=== PATIENT | male | born 1935 ===

== ENCOUNTER 2016-09-08 19:37 | Inpatient (IN) | payer MEDICARE, OTHER ==
--- NOTE | 2016-09-08 20:17 | ED PDOC ---
HPI: Head Injury Time Seen by Provider: 09/08/16 19:45 Chief Complaint (Nursing): Abnormal Skin Integrity Chief Complaint (Provider): Head injury History Per: Patient, Family (daughters and son) History/Exam Limitations: no limitations Injury Occurred (Timing): Just Before Arrival Onset/Duration Of Symptoms: Mins (just before arrival) Patient States: Other (tripped and fell, head hit the floor) Severity: Moderate Loss Of Consciousness: No (patient's son states patient was disoriented after fall. No LOC) Additional Complaint(s): 81 year old male in kidney failure currently on dialysis (3x days a week, patient went to day) is brought into the ED by EMS for a head injury that occurred just prior to arrival. Patient's daughter reports that he had just gotten home after a dialysis appointment, took a shower, and afterwards tripped and fell with the left side of his head hitting against the floor. His son reports seeing the fall and states that his father had no loss of consciousness but was disoriented after the fall. Patient reports that the left side of his forehead is sore. Patient denies feeling weak or having any other medical complaints. Of note: Patient was administered heprin during dialysis today. Patient is currently taking: * prilosec * renvela * cymbalta * cavedrol * flomax * cyproheptadine PRN as needed PMD: Jason Brand MD Vault Attendant: Hosea Rodriguez MD Past Medical History Reviewed: Historical Data, Nursing Documentation, Vital Signs - Medical History PMH: Arthritis, Back Problems (lower back herniated disc ), HTN, End Stage Renal Disease (HD on MWF), Chronic Kidney Disease, TIA Denies: Fractures - Surgical History Other surgeries: left arm AV shunt - Family History Family History: States: Unknown Family Hx - Living Arrangements Living Arrangements: Other (with homemaker) - Social History Alcohol: None Drugs: Denies - Immunization History Hx Tetanus Toxoid Vaccination: Yes (02/2016) - Home Medications Home Medications: Ambulatory Orders Medication Instructions Recorded Omeprazole [Prilosec] 20 mg PO DAILY #0 ecc 04/07/15 Sevelamer Carbonate [Renvela] 800 mg PO BID 04/14/16 Carvedilol [Coreg] 3.125 mg PO SUTUTHSA@0900,2100 30 05/30/16 Days DULoxetine [Cymbalta] 30 mg PO QAM 30 Days 05/30/16 Tamsulosin [Flomax] 0.4 mg PO QPM #30 cap 05/30/16 B Complex W-C No.20/Folic Acid 1 mg PO DAILY 09/08/16 [[place] Caps Softgel] Cyproheptadine [Periactin] 4 mg pe PO ONCE PRN 09/08/16 - Allergies Allergies/Adverse Reactions: Allergies Allergy/AdvReac Type Severity Reaction Status Date / Time cortisone Allergy Mild hicups Verified 09/08/16 19:45 Review of Systems ROS Statement: Except As Marked, All Systems Reviewed And Found Negative Neurological: Positive for: Headache. Negative for: Weakness Physical Exam - Reviewed Nursing Documentation Reviewed: Yes Vital Signs Reviewed: Yes - Physical Exam Appears: Positive for: Well, Non-toxic, No Acute Distress Head Exam: Positive for: NORMOCEPHALIC. Negative for: ATRAUMATIC (4 centimeter laceration above left eyebrow) Skin: Positive for: Normal Color, Warm, Dry Eye Exam: Positive for: Normal appearance, EOMI, PERRL Neck: Positive for: Normal, Painless ROM Cardiovascular/Chest: Positive for: Regular Rate, Rhythm Respiratory: Positive for: Normal Breath Sounds. Negative for: Respiratory Distress Gastrointestinal/Abdominal: Positive for: Normal Exam, Soft. Negative for: Tenderness Back: Positive for: Normal Inspection Extremity: Positive for: Normal ROM. Negative for: Tenderness, Swelling Neurologic/Psych: Positive for: Alert, Oriented (3x) - Laboratory Results Result Diagrams: 09/08/16 20:48 09/08/16 21:27 - ECG O2 Sat by Pulse Oximetry: 98 (RA) Pulse Ox Interpretation: Normal - Progress ED Course And Treament: ct orbit: no fx ct c spine: no fx ct head: subdural hematoma right tentorium Case d/w Dr. Noble. Requests CT of head in am Case d/w vice president process; Admit to Dr. Lovett Medical Decision Making Medical Decision Makin:45 Initial impression: 81 year old male with a head injury status post fall. Initial plan: * CT cervical spine w/o contrast * CT head w/o contrast * CT orbits/ facials w/o contrast * EKG * CMP * CBC * PTT * prothrombin time * reevaluation 21:40 CT head read and reviewed by radiologist. FINDINGS: Artifacts: Motion artifact degrades image quality. Streak artifact degrades image quality. Brain: There is dilatation of sulci gyri and ventricles. There is no midline shift. There is decreased attenuation in periventricular white matter. There are no focal masses. There is subdural hematoma along the tentorium on the right. Maximal width is approximately 10.6 mm, image 26 series 602. There is mild effacement of adjacent sulci and gyri. Hastings-white differentiation is visualized. Ventricles: See above Bones: Cranial vault is intact. Soft tissues: unremarkable Sinuses: There is no acute sinusitis. Ears and mastoids: Middle ears and mastoids are unremarkable. Orbits: Orbital contents are unremarkable. IMPRESSION: Subdural hematoma along the tentorium on the right mild effacement of adjacent sulci and gyri, no midline shift; atrophy and small vessel disease Addendum Dictated By: Mihaela Davis MD Addendum Dictated Date Time:09/08/16 Addendum Signed by:Mihaela Davis MD Addendum signed Date Time: 09/08/162141 Addendum Transcribed By: CECELIA Addendum Transcribed Date Time: 09/08/16 MJ/KAYLEY EXAM: CT Head Without Intravenous Contrast CLINICAL HISTORY: 81 years old, male; Injury or trauma; Fall; Initial encounter; Concussion / head injury; Consciousness not specified TECHNIQUE: Axial computed tomography images of the head/brain without intravenous contrast. This CT exam was performed using one or more of the following dose reduction techniques: automated exposure control, adjustment of the mA and/or kV according to patient size, and/or use of iterative reconstruction technique. Coronal and sagittal reformatted images were created and reviewed. EXAM DATE/TIME: 09/08/2016 8:01 PM COMPARISON: CT - HEAD W/O CONTRAST 05/20/2016 3:59:34 PM FINDINGS: Artifacts: Motion artifact degrades image quality. Streak artifact degrades image quality. Brain: There is dilatation of sulci gyri and ventricles. There is no midline shift. There is decreased attenuation in periventricular white matter. There are no focal masses. There is subdural hematoma along the tentorium on the right. Maximal width is approximately 10.6 mm, image 26 series 602. There is mild effacement of adjacent sulci and gyri. Hastings-white differentiation is visualized. Ventricles: See above Bones: Cranial vault is intact. Soft tissues: unremarkable Sinuses: There is no acute sinusitis. Ears and mastoids: Middle ears and mastoids are unremarkable. Orbits: Orbital contents are unremarkable. IMPRESSION: Subdural hematoma along the tentorium on the right mild effacement of adjacent sulci and gyri, no midline shift; atrophy and small vessel disease 21:49 CT orbits read and reviewed by radiologist FINDINGS: Bony structures: There are no acute facial bone fractures. There are degenerative changes cervical spine Dental:Streak artifact from dental fillings degrades image quality. Periapical erosions left lower incisors. Brain: There are atrophic changes intracranially. There is decrease attenuation in periventricular white matter. There is a subdural hematoma along the tentorium on the bright. Ears and mastoids: Middle ears are unremarkable. There is partial opacification of the mastoid tips. Orbits: Orbital contents are unremarkable. Sinuses: There is no acute sinusitis. Soft tissues: There is left facial and periorbital soft tissue swelling. There is laceration with air in the soft tissues. Airway: Airway is unremarkable. IMPRESSION: Left facial and periorbital bruising and laceration, no underlying fracture; right subdural hematoma along the tentorium Additional findings as described above. Scribe Attestation: Documented by Bessie Lo, acting as a scribe for Elliot Hassan PA-C. Provider Scribe Attestation: All medical record entries made by the Scribe were at my direction and personally dictated by me. I have reviewed the chart and agree that the record accurately reflects my personal performance of the history, physical exam, medical decision making, and the department course for this patient. I have also personally directed, reviewed, and agree with the discharge instructions and disposition. Disposition - Clinical Impression Clinical Impression: Subdural hematoma - Patient ED Disposition Is Patient to be Admitted: Yes - Disposition Disposition Time: 23:00 Condition: FAIR - Pt Status Changed To: Hospital Disposition Of: Inpatient - Admit Certification Admit to Inpatient:: After my assessment, the patient will require hospitalization for at least two midnights. This is because of the severity of symptoms shown, intensity of services needed, and/or the medical risk in this patient being treated as an outpatient. Procedure: Wound Repair - Time Performed Time Performed: 23:41 - Time Out Time Out: Site verified - Consent Obtained Consent obtained: Verbal - Performed by Performed by: Mid-level Provider - Indications Indication(s):: Laceration - Location Location:: Left, Face Dimensions Length cm: 3.0cm Depth:: Epidermis - Anesthetic Technique Anesthetic Technique: Local Local/Regional Anesthetic:: Lidocaine 1% w/epi - Wound repair method Sutures:: # (one 5-0 vicryl suture placed subcutaneous; seven 6-0 prolene sutures placed external)
[2016-09-08 20:54] LABS: BASO % 0.7 % (0.0-2.0); EOS # 0.4 K/uL (0.0-0.7); EOS % 8.2 % (0.0-4.0); HEMATOCRIT 33.8 % (35.0-51.0); LYMPH # 0.6 K/uL (1.0-4.3); LYMPH % 12.5 % (20.0-40.0); MEAN CELL VOLUME 99.7 fl (80.0-94.0); MEAN CORPUSCULAR HEMOGLOBIN 32.1 pg (27.0-31.0); MEAN CORPUSCULAR HGB CONC 32.1 g/dL (33.0-37.0); MEAN PLATELET VOLUME 9.3 fl (7.2-11.7); MONO # 0.6 K/uL (0.0-0.8); MONO % 13.3 % (0.0-10.0); NEUT # 3.1 K/uL (1.8-7.0); NEUT % 65.3 % (50.0-75.0); NRBC % 0.2 % (0.0-0.0); WHITE BLOOD COUNT 4.7 K/uL (4.8-10.8)
[2016-09-08] MEDS ORDERED: Lidocaine/Epi 1% 1:100000 20 ML IJ ONE (20:54)
[2016-09-08 21:04] LABS: ALB/GLOB RATIO 0.9 (1.0-2.1); CALCIUM 8.7 mg/dL (8.4-10.2); TOTAL PROTEIN 8.8 G/DL (6.3-8.2)
[2016-09-08 21:13] LABS: POTASSIUM 6.2 MMOL/L (3.6-5.0)
--- NOTE | 2016-09-08 21:40 | CT ---
EXAM: CT Head Without Intravenous Contrast CLINICAL HISTORY: 81 years old, male; Injury or trauma; Fall; Initial encounter; Concussion / head injury; Consciousness not specified TECHNIQUE: Axial computed tomography images of the head/brain without intravenous contrast. This CT exam was performed using one or more of the following dose reduction techniques: automated exposure control, adjustment of the mA and/or kV according to patient size, and/or use of iterative reconstruction technique. Coronal and sagittal reformatted images were created and reviewed. EXAM DATE/TIME: 09/08/2016 8:01 PM COMPARISON: CT - HEAD W/O CONTRAST 05/20/2016 3:59:34 PM FINDINGS: Artifacts: Motion artifact degrades image quality. Streak artifact degrades image quality. Brain: There is dilatation of sulci gyri and ventricles. There is no midline shift. There is decreased attenuation in periventricular white matter. There are no focal masses. There is subdural hematoma along the tentorium on the right. Maximal width is approximately 10.6 mm, image 26 series 602. There is mild effacement of adjacent sulci and gyri. Hastings-white differentiation is visualized. Ventricles: See above Bones: Cranial vault is intact. Soft tissues: unremarkable Sinuses: There is no acute sinusitis. Ears and mastoids: Middle ears and mastoids are unremarkable. Orbits: Orbital contents are unremarkable. IMPRESSION: Subdural hematoma along the tentorium on the right mild effacement of adjacent sulci and gyri, no midline shift; atrophy and small vessel disease
[2016-09-08 21:44] LABS: POTASSIUM 4.4 MMOL/L (3.6-5.0)
--- NOTE | 2016-09-08 21:49 | CT ---
EXAM: CT Maxillofacial Without Intravenous Contrast CLINICAL HISTORY: 81 years old, male; Injury or trauma; Fall; Initial encounter; Blunt trauma (contusions or hematomas); Orbit/periorbital; Left; Additional info: Facial injury TECHNIQUE: Axial computed tomography images of the face without intravenous contrast. This CT exam was performed using one or more of the following dose reduction techniques: automated exposure control, adjustment of the mA and/or kV according to patient size, and/or use of iterative reconstruction technique. Coronal and sagittal reformatted images were created and reviewed. EXAM DATE/TIME: 09/08/2016 8:02 PM COMPARISON: CT - HEAD W/O CONTRAST 05/20/2016 3:59:34 PM FINDINGS: Bony structures: There are no acute facial bone fractures. There are degenerative changes cervical spine Dental:Streak artifact from dental fillings degrades image quality. Periapical erosions left lower incisors. Brain: There are atrophic changes intracranially. There is decrease attenuation in periventricular white matter. There is a subdural hematoma along the tentorium on the bright. Ears and mastoids: Middle ears are unremarkable. There is partial opacification of the mastoid tips. Orbits: Orbital contents are unremarkable. Sinuses: There is no acute sinusitis. Soft tissues: There is left facial and periorbital soft tissue swelling. There is laceration with air in the soft tissues. Airway: Airway is unremarkable. IMPRESSION: Left facial and periorbital bruising and laceration, no underlying fracture; right subdural hematoma along the tentorium Additional findings as described above.
[2016-09-08 22:09] LABS: PARTIAL THROMBOPLASTIN TIME 31.4 SECONDS (23.3-32.5)
--- NOTE | 2016-09-08 22:58 | CP.PCM.HP ---
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 Family reports patient fell with the left side of his head hitting against the floor, witnessed by family, no loss of consciousness but was disoriented after the fall. Patient reports that the left side of his forehead is sore. Patient denies feeling weak, disoriented, n/v/cp/sob/LARA/syncope/incontinence. 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 Allergies: NKDA Home Meds: See Med List PMD: Jason Brand MD Assistant Executive Housekeeper: Hosea Vazquez MD ED COURSE: VS Stable CT cervical spine w/o contrast CT head w/o contrast CT orbits/ facials w/o contrast EKG CMP CBC PTT, prothrombin time CT Head w/o contrast IMPRESSION: Subdural hematoma along the tentorium on the right mild effacement of adjacent sulci and gyri, no midline shift; atrophy and small vessel disease CT orbit: IMPRESSION: Left facial and periorbital bruising and laceration, no underlying fracture; right subdural hematoma along the tentorium Present on Admission - Present on Admission Any Indicators Present on Admission: No Review of Systems - Review of Systems Review of Systems: see hpi Past Patient History - Past Medical History & Family History Past Medical History?: Yes - Past Social History Alcohol: None Drugs: Denies - CARDIAC Hx Hypertension: Yes - PULMONARY Hx Respiratory Disorders: No - NEUROLOGICAL Hx Transient Ischemic Attacks (TIA): Yes - HEENT Hx Cataracts: Yes - RENAL Hx Chronic Kidney Disease: Yes - ENDOCRINE/METABOLIC Hx Endocrine Disorders: No - HEMATOLOGICAL/ONCOLOGICAL Hx Blood Disorders: No - INTEGUMENTARY Hx Dermatological Problems: No - MUSCULOSKELETAL/RHEUMATOLOGICAL Hx Arthritis: Yes Hx Fractures: No - GASTROINTESTINAL Hx Gastroesophageal Reflux: Yes Other/Comment: Bilateral inguinal hernis - GENITOURINARY/GYNECOLOGICAL Hx Prostate Problems: Yes Other/Comment: Turp in past - PSYCHIATRIC Hx Substance Use: No - SURGICAL HISTORY Hx Surgeries: Yes (Left arm AV shunt) Other/Comment: TUR-P many years ago. Cataract Sx - ANESTHESIA Hx Anesthesia: Yes Hx Anesthesia Reactions: No (None Known) Meds Allergies/Adverse Reactions: Allergies Allergy/AdvReac Type Severity Reaction Status Date / Time cortisone Allergy Mild hicups Verified 09/08/16 19:45 Physical Exam - Constitutional Appears: No Acute Distress - Head Exam Additional comments: left sided periorbital laceration - Eye Exam Eye Exam: EOMI Additional comments: cataracts in BL eyes, PERRLA, EOMI - ENT Exam ENT Exam: Mucous Membranes Moist - Neck Exam Neck exam: Positive for: Full Rom - Respiratory Exam Respiratory Exam: Clear to Auscultation Bilateral - Cardiovascular Exam Cardiovascular Exam: +S1, +S2 - GI/Abdominal Exam GI & Abdominal Exam: Normal Bowel Sounds, Soft. absent: Tenderness - Extremities Exam Extremities exam: Positive for: pedal pulses present. Negative for: pedal edema Additional comments: s/p THR, LE stregnth 4/5 bilaterally, patient curretly does home PT for hip UE: 5/5 ROM and strength - Neurological Exam Neurological exam: Alert, CN II-XII Intact, Oriented x3, Reflexes Normal - Psychiatric Exam Psychiatric exam: Normal Affect, Normal Mood - Skin Skin Exam: Dry, Warm Results - Vital Signs Recent Vital Signs: Last Vital Signs Temp 97.6 F 09/08/16 19:41 Pulse 68 09/08/16 19:41 Resp 17 09/08/16 19:41 BP 143/81 09/08/16 19:41 Pulse Ox 98 09/08/16 22:08 - Labs Result Diagrams: 09/08/16 20:48 09/08/16 21:27 Labs: Laboratory Results - last 24 hr 09/08/16 09/08/16 09/08/16 20:48 20:48 20:48 WBC 4.7 L RBC 3.39 L Hgb 10.9 L D Hct 33.8 L MCV 99.7 H MCH 32.1 H MCHC 32.1 L RDW 20.0 H Plt Count 83 L D MPV 9.3 Neut % (Auto) 65.3 Lymph % (Auto) 12.5 L [place] % (Auto) 13.3 H Eos % (Auto) 8.2 H Baso % (Auto) 0.7 Neut # 3.1 Lymph # 0.6 L [place] # 0.6 Eos # 0.4 Baso # 0.0 PT 14.3 H INR 1.38 H APTT 31.4 Sodium 138 Potassium 6.2 H* D Chloride 96 L Carbon Dioxide 30 Anion Gap 18 BUN 38 H Creatinine 3.6 H Est GFR ( Amer) 20 Est GFR (Non-Af Amer) 16 Random Glucose 99 Calcium 8.7 Total Bilirubin 2.0 H AST 66 H D ALT 14 L Alkaline Phosphatase 165 H Total Protein 8.8 H Albumin 4.2 Globulin 4.6 H Albumin/Globulin Ratio 0.9 L 09/08/16 21:27 WBC RBC Hgb Hct MCV MCH MCHC RDW Plt Count MPV Neut % (Auto) Lymph % (Auto) [place] % (Auto) Eos % (Auto) Baso % (Auto) Neut # Lymph # [place] # Eos # Baso # PT INR APTT Sodium 139 Potassium 4.4 Chloride 97 L Carbon Dioxide 30 Anion Gap 16 BUN 37 H Creatinine 3.8 H Est GFR ( Amer) 19 Est GFR (Non-Af Amer) 15 Random Glucose 98 Calcium 9.0 Total Bilirubin AST ALT Alkaline Phosphatase Total Protein Albumin Globulin Albumin/Globulin Ratio Assessment & Plan - Assessment and Plan (Free Text) Plan: 81 year old male w/ CRF currently on dialysis (HD MWF) admitted s/p fall and head injury that occurred just prior to arrival. Acute Head Injury causing subdural hematoma seen on CT head ED COURSE: VS Stable CT cervical spine w/o contrast CT head w/o contrast CT orbits/ facials w/o contrast EKG CMP CBC PTT, prothrombin time CT Head w/o contrast IMPRESSION: Subdural hematoma along the tentorium on the right mild effacement of adjacent sulci and gyri, no midline shift; atrophy and small vessel disease CT orbit: IMPRESSION: Left facial and periorbital bruising and laceration, no underlying fracture; right subdural hematoma along the tentorium admit to tele VS stable, normotensive, afebrile, HR stable PE: unremarkable neurochecks Q2 hrs elevate head of bed [address] head w/o contrast in AM as per neurosurgery Neurosurgery: Dr Veras HTN c/w home meds BPH c/w flomax Ppx DVT - SCDs for now <Jason Brand - Last Filed: 09/09/16 06:48> Results - Vital Signs Recent Vital Signs: Last Vital Signs Temp 98.7 F 09/09/16 05:00 Pulse 79 09/09/16 05:00 Resp 16 09/09/16 05:00 BP 156/97 H 09/09/16 05:00 Pulse Ox 96 09/09/16 05:00 - Labs Result Diagrams: 09/09/16 04:30 09/09/16 04:30 Labs: Laboratory Results - last 24 hr 09/09/16 09/09/16 04:30 04:30 WBC 5.0 RBC 3.46 L Hgb 11.1 L Hct 34.5 L MCV 99.7 H MCH 32.0 H MCHC 32.1 L RDW 19.9 H Plt Count 88 L Sodium 142 Potassium 4.5 Chloride 97 L Carbon Dioxide 29 Anion Gap 21 H BUN 42 H Creatinine 4.1 H Est GFR ( Amer) 17 Est GFR (Non-Af Amer) 14 Random Glucose 95 Calcium 9.0 Total Bilirubin 1.7 H AST 35 ALT 23 Alkaline Phosphatase 166 H Total Protein 8.5 H Albumin 4.0 Globulin 4.5 H Albumin/Globulin Ratio 0.9 L Attending/Attestation - Attestation I have personally seen and examined this patient.: Yes I have fully participated in the care of the patient.: Yes I have reviewed all pertinent clinical information: Yes
[2016-09-09 03:06] VITALS: BMI 23.8
[2016-09-09 05:41] LABS: POTASSIUM 4.5 MMOL/L (3.6-5.0)
[2016-09-09 05:42] LABS: ALB/GLOB RATIO 0.9 (1.0-2.1); BILIRUBIN,TOTAL 1.7 mg/dl (0.2-1.3); TOTAL PROTEIN 8.5 G/DL (6.3-8.2)
[2016-09-09 05:49] LABS: HEMATOCRIT 34.5 % (35.0-51.0); MEAN CELL VOLUME 99.7 fl (80.0-94.0); MEAN CORPUSCULAR HGB CONC 32.1 g/dL (33.0-37.0); RED CELL DISTRIBUTION WIDTH 19.9 % (11.5-14.5)
[2016-09-09] MEDS ORDERED: [UNRECOGNIZED DRUG - REMARK] PO SCH (09:00)
--- NOTE | 2016-09-09 09:45 | CT ---
PROCEDURE: CT Cervical Spine without contrast HISTORY: <fall> COMPARISON: None available. TECHNIQUE: Axial computed tomography images were obtained of the cervical spine without the use of intravenous contrast. Coronal and sagittal reformatted images were created and reviewed. Radiation dose: Total exam DLP = 497.11 mGy-cm. This CT exam was performed using one or more of the following dose reduction techniques: Automated exposure control, adjustment of the mA and/or kV according to patient size, and/or use of iterative reconstruction technique. FINDINGS: VERTEBRAE: No acute compression fractures no retropulsed fragments. Vertebral bodies exhibit relatively normal stature. There is straightening of the normal cervical lordosis with slight anterior subluxation C2 over C3 and to a lesser degree C3 over C4 at C7 over T1 . Vertebral bodies otherwise exhibit normal alignment. Facets normally aligned. DISCS/SPINAL CANAL/NEURAL FORAMINA: Multilevel degenerative spondylosis. At the C6-C7 level, there is marked disc space narrowing with endplate eburnation/ subchondral cystic changes and Schmorl's node formation. Small of asymmetric broad-based osteophytic ridge contiguous with hypertrophic uncovertebral joints right greater than left. Facets also hypertrophic. The changes result in mild central canal narrowing and bilateral foraminal stenosis right greater than left. At the C5-C6 level, there is also marked disc space narrowing with endplate eburnation an small osteophytic ridge disc bulge complex contiguous with hypertrophic uncovertebral joints. Facets also hypertrophic left greater than right. The central canal is marginal to adequate. Exit foramina are narrowed bilaterally left greater than right. At the C4-C5 level, marked disc space narrowing with endplate eburnation and subchondral cystic changes. Small broad-based osteophytic ridge disc bulge complex contiguous with hypertrophic uncovertebral joints. Facets also hypertrophic left greater than right. Central canal appears adequate. Exit foramina are narrowed bilaterally left greater than right. At the C3-C4 level, there is mild disc space narrowing. Mild degenerative squaring of the uncovertebral joints. Facets are hypertrophic left greater than right. Central canal appears adequate. Exit foramina are narrowed on the left and adequate on the right. Note made of a small lucency and/or lytic change involving the inferior and superior margins of the left C2 and C3 facet joint respectively. Findings are of uncertain etiology though could be inflammatory arthritis however the possibility of a marrow replacement process cannot be excluded. Followup MRI and/or three-phase bone scan is recommended PARASPINAL SOFT TISSUES: Paraspinal soft tissues appear grossly unremarkable. OTHER FINDINGS: None. IMPRESSION: No acute fractures. Multilevel degenerative spondylosis of the cervical spine which most notably affect the exit foramina on more so than the central canal as detailed above. Note is also made of discrete area of lucencies/lytic change involving the left sided C2-C3 facet joint. While this could be secondary to inflammatory arthritis, the possibility of a marrow replacement lesion not excluded. Follow-up MRI suggested. Three-phase bone scan may be prudent as well. Note that this report was placed in PA review folder for followup
[2016-09-09] MEDS: Multivitamin Vitamin B Complex (Nephro-Vite) Tab PO SCH (09:59)
[2016-09-09] MEDS: Pantoprazole 40 mg EC Tab PO SCH (09:59)
--- NOTE | 2016-09-09 11:21 | CT ---
PROCEDURE: CT HEAD WITHOUT CONTRAST. HISTORY: monitoring of subdural hemorrhage COMPARISON: Comparison made with CT scan chest [id number]. TECHNIQUE: Axial computed tomography images were obtained through the head/brain without intravenous contrast. Radiation dose: Total exam DLP = 1038.31 mGy-cm. This CT exam was performed using one or more of the following dose reduction techniques: Automated exposure control, adjustment of the mA and/or kV according to patient size, and/or use of iterative reconstruction technique. FINDINGS: HEMORRHAGE: Re- demonstrated is a small amount subdural hematoma layering along the superior margin right tentorial leaf. . There has also been extension of hemorrhage into the posterior margin of the interhemispheric fissure likely due to prolonged supine patient positioning. In addition, there has been extension of the subdural hematoma into the floor and medial aspect right middle cranial fossa. . Hemorrhagic focus suspect a small hemorrhagic focus within the right posterolateral margin of suspected cavum velum interpositum abutting the posteromedial margin of the right superior atrium/lateral ventricle junction or possibly within the subependymal surface of the right posteromedial margin of the right lateral ventricle. BRAIN: Moderate to significant diffuse/ confluent chronic periventricular white matter ischemic changes seen extending peripherally into the deep subcortical white matter both cerebral hemispheres. There is extension of these changes into white matter tracts of both basal nuclei. VENTRICLES: Moderate central volume loss evidenced by disproportionate enlargement of the ventricles as compared sulci. CALVARIUM: No acute calvarial fractures. Re- demonstrated are moderate to fairly significant left-sided premaxillary soft tissue swelling extending superiorly into the periorbital and supraorbital as well as left frontotemporal scalp. PARANASAL SINUSES: Unremarkable as visualized. No significant inflammatory changes. MASTOID AIR CELLS: Unremarkable as visualized. No inflammatory changes. OTHER FINDINGS: Status post bilateral cataract surgery. IMPRESSION: Re- demonstrated is a right-sided subdural hematoma layering along superior margin right tentorial leaf which has undergone some dependent layering into the posterior margin of the interhemispheric fissure as well as the floor and medial aspect of the right middle cranial fossa Moderate to fairly significant residual left-sided facial soft tissue swelling. Moderate to significant white matter ischemic changes with extension into the white matter tracts of both basal nuclei. Moderate central volume loss.
--- NOTE | 2016-09-09 11:21 | CP.PCM.PN ---
Subjective - Date & Time of Evaluation Date of Evaluation: 09/09/16 Time of Evaluation: 11:19 - Subjective Subjective: consult dictated gcs 15,nonfocal sdh ? inc 09/08 to 09/09 rec cont ICU obs f/u CT am Objective - Vital Signs/Intake and Output Vital Signs (last 24 hours): Temp Pulse Resp BP Pulse Ox 97.9 F 75 18 138/81 94 L 09/09/16 07:41 09/09/16 09:58 09/09/16 07:41 09/09/16 09:58 09/09/16 07:41 - Medications Medications: Current Medications Carvedilol (Coreg) 3.125 mg PO SUTUTHSA@0900,2100 [facility] Last Admin: 09/09/16 09:58 Dose: 3.125 mg Duloxetine HCl (Cymbalta) 30 mg PO QAM [facility] Last Admin: 09/09/16 09:59 Dose: 30 mg Pantoprazole Sodium (Protonix Ec Tab) 40 mg PO DAILY [facility] Last Admin: 09/09/16 09:59 Dose: 40 mg Sevelamer HCl (Renagel) 800 mg PO BID [facility] Last Admin: 09/09/16 09:59 Dose: 800 mg Tamsulosin HCl (Flomax) 0.4 mg PO QPM [facility] Vitamin B Complex/Vit C/Folic Acid (Nephro-Faraz) 1 tab PO DAILY [facility] Last Admin: 09/09/16 09:59 Dose: 1 tab - Labs Labs: 09/09/16 04:30 09/09/16 04:30 PT 14.3 SECONDS (9.6-11.2) H 09/08/16 20:48 INR 1.38 (0.92-1.08) H 09/08/16 20:48 APTT 31.4 SECONDS (23.3-32.5) 09/08/16 20:48
--- NOTE | 2016-09-09 13:15 | CP.PCM.PN ---
<AldenstefanBessie - Last Filed: 09/09/16 16:05> Subjective - Date & Time of Evaluation Date of Evaluation: 09/09/16 Time of Evaluation: 07:50 - Subjective Subjective: Patient was seen and examined at bedside this morning. Patient alert, awake, and oriented X 3. Patient was answering questions without difficulty. Reports mild left sided frontal pain and around his left eye. Denies chest pain, SOB, lightheadedness, acute visual changes, nausea, vomiting, abdominal pain or other complains at this evaluation. Objective - Vital Signs/Intake and Output Vital Signs (last 24 hours): Temp Pulse Resp BP Pulse Ox 98.5 F 68 21 128/92 H 95 09/09/16 12:00 09/09/16 12:00 09/09/16 12:00 09/09/16 12:00 09/09/16 12:00 - Medications Medications: Current Medications Carvedilol (Coreg) 3.125 mg PO SUTUTHSA@0900,2100 [facility] Last Admin: 09/09/16 09:58 Dose: 3.125 mg Duloxetine HCl (Cymbalta) 30 mg PO QAM [facility] Last Admin: 09/09/16 09:59 Dose: 30 mg Pantoprazole Sodium (Protonix Ec Tab) 40 mg PO DAILY [facility] Last Admin: 09/09/16 09:59 Dose: 40 mg Sevelamer HCl (Renagel) 800 mg PO BID [facility] Last Admin: 09/09/16 09:59 Dose: 800 mg Tamsulosin HCl (Flomax) 0.4 mg PO QPM [facility] Vitamin B Complex/Vit C/Folic Acid (Nephro-Faraz) 1 tab PO DAILY [facility] Last Admin: 09/09/16 09:59 Dose: 1 tab - Labs Labs: 09/09/16 04:30 09/09/16 04:30 PT 14.3 SECONDS (9.6-11.2) H 09/08/16 20:48 INR 1.38 (0.92-1.08) H 09/08/16 20:48 APTT 31.4 SECONDS (23.3-32.5) 09/08/16 20:48 - Constitutional Appears: Non-toxic, No Acute Distress - Eye Exam Eye Exam: PERRL Additional comments: left sided periorbital laceration. Left periorbital ecchymosis. - ENT Exam ENT Exam: Mucous Membranes Moist - Respiratory Exam Respiratory Exam: Clear to Ausculation Bilateral, NORMAL BREATHING PATTERN - Cardiovascular Exam Cardiovascular Exam: REGULAR RHYTHM, +S1, +S2 - GI/Abdominal Exam GI & Abdominal Exam: Soft, Normal Bowel Sounds. absent: Distended, Guarding, Rigid, Tenderness - Extremities Exam Extremities Exam: Normal Inspection. absent: Calf Tenderness, Pedal Edema - Neurological Exam Neurological Exam: Alert, Awake, Oriented x3 - Skin Skin Exam: Dry, Intact, Normal Color Assessment and Plan - Assessment and Plan (Free Text) Assessment: 81 year old male w/ CRF currently on dialysis (HD MWF) admitted s/p fall and head injury that occurred just prior to arrival. Plan: Subdural Hematoma -Secondary to Head injury after fall -ICU observation -Head CT w/o contrast showed : right-sided Subdural hematoma along the tentorium on the right mild effacement of adjacent sulci and gyri, no midline shift; atrophy and small vessel disease . -CT orbit: IMPRESSION: Left facial and periorbital bruising and laceration, no underlying fracture; right subdural hematoma along the tentorium. -elevate head of bed [address] head w/o contrast in AM as per neurosurgery Neurosurgery: Dr Veras -F/U repeat head CT scan results -Neurology on board, Dr. Collazo, Recommends head MRI w/o contrast, and EEG. 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 Cain/Dr. Vazquez on board. Waiting recommendations for dialysis while in house -Sevelamer 800 mg PO BID [facility] Hypertension c/w home med. Carvedilol 3.125 mg PO heart healthy diet Benign prostatic hyperplasia c/w home Tamsulosin 0.4 mg daily PO DVT Prophylaxis DVT - SCDs for now <Jason Brand - Last Filed: 09/12/16 06:50> Objective - Vital Signs/Intake and Output Vital Signs (last 24 hours): Temp Pulse Resp BP Pulse Ox 97.3 F L 66 18 139/82 96 09/12/16 05:00 09/12/16 05:00 09/12/16 05:00 09/12/16 05:00 09/12/16 05:00 - Medications Medications: Current Medications Ascorbic Acid (Vitamin C 500 Mg Tab) 500 mg PO DAILY [facility] Last Admin: 09/11/16 09:00 Dose: 500 mg Calamine (Calamine Lotion) 1 applic TOP BID PRN PRN Reason: Itching / Pruritus Last Admin: 09/11/16 22:08 Dose: 1 applic Carvedilol (Coreg) 3.125 mg PO SUTUTHSA@0900,2100 [facility] Last Admin: 09/11/16 22:05 Dose: 3.125 mg Duloxetine HCl (Cymbalta) 30 mg PO QAM [facility] Last Admin: 09/11/16 09:00 Dose: 30 mg Ergocalciferol (Drisdol 50,000 Intl Units Cap) 1 cap PO Q7D [facility] Last Admin: 09/09/16 22:51 Dose: 1 cap Pantoprazole Sodium (Protonix Ec Tab) 40 mg PO DAILY [facility] Last Admin: 09/11/16 09:00 Dose: 40 mg Sevelamer HCl (Renagel) 800 mg PO BID [facility] Last Admin: 09/11/16 17:00 Dose: 800 mg Tamsulosin HCl (Flomax) 0.4 mg PO QPM [facility] Last Admin: 09/11/16 18:00 Dose: 0.4 mg Vitamin B Complex/Vit C/Folic Acid (Nephro-Faraz) 1 tab PO DAILY [facility] Last Admin: 09/11/16 09:00 Dose: 1 tab - Labs Labs: 09/10/16 04:40 09/12/16 05:25 PT 13.6 SECONDS (9.6-11.2) H 09/10/16 04:40 INR 1.31 (0.92-1.08) H 09/10/16 04:40 APTT 30.3 SECONDS (23.3-32.5) 09/10/16 04:40 Attending/Attestation - Attestation I have personally seen and examined this patient.: Yes I have fully participated in the care of the patient.: Yes I have reviewed all pertinent clinical information, including history, physical exam and plan: Yes
--- NOTE | 2016-09-09 13:23 | CON ---
DATE: 09/09/2016 HISTORY OF PRESENT ILLNESS: This is an 81-year-old gentleman that experienced a rather severe fall i mpacting the left side of his face, brought to the [facility] ER and was found to have a subd ural hematoma, was admitted for observation. Speaking with the gentleman today, he really has complaints only of mild headache that he states is i mproved since yesterday. PAST MEDICAL HISTORY: Reviewed in the chart, most salient for a recent right hip replacement and martha al failure on dialysis. PHYSICAL EXAMINATION: GENERAL: score of 15. He is bright, awake and alert. He is a little disoriented to the date, but follows all commands . HEENT: Left eye is swollen and ecchymotic. Pupils are equal and reactive. EOMs are full. NEUROLOGIC: Lower cranial nerves are intact. No drift, 5/5 strength throughout. Sensory exam is gr ossly intact. CT of the brain done last night and repeated this morning does show a subdural hematoma, predominantl y on the right side, layering around the tentorium and then heading into the middle cranial fossa yifan eath the right temporal lobe. It does seem as if it is slightly more extensive on the new CT compare d to the old, but this may be due to a combination of spreading out of the original tentorial subdura l, as well as different angle of the gantry. In any case, I would certainly advocate ICU observation at least for the next 24 hours, a repeat CAT scan in the morning. All the above was discussed with the patient and his family at the bedside. Nathan Veras MD cc: [id number] TT: 09/09/2016 13:22:44 Confirmation # [id number] Dictation # [id number] [email or web address]
--- NOTE | 2016-09-09 15:40 | MRI ---
PROCEDURE: MRA brain dated 09/09/2016 HISTORY: Subdural hematoma COMPARISON: Correlation made with prior CT scan TECHNIQUE: 3D time of flight MR angiography of the intracranial arteries was performed. Rotating maximum intensity projection images were aerated. FINDINGS: Findings: The current study limited the due to motion artifact. . The visualized distal internal carotid arteries including the petrous, cavernous and supraclinoid segments are patent. The right A1 segment is only visualized on source images likely due to small caliber and motion artifact compared to larger in caliber/more dominant left A1 segment. . Which could be due to a atresia of or significant hypoplasia. The proximal margins of the A2 segments are poorly seen due to artifact though are visualized on source images as are the distal branches of the A1 segments. The right and left middle cerebral arteries are patent so far as can be seen on source imaging as are the distal branches. . MIP images demonstrate irregular narrowing on the right middle cerebral artery and less so on the left however these findings are the felt to be artifactual There is asymmetry of the distal vertebral arteries right-side of which is larger in caliber/more dominant than the left side. . Basilar artery is patent. The P1, P2 and P3 segments of the posterior cerebral arteries are well seen on source and MIP projections however the distal posterior cerebral arteries are only seen on source imaging likely due to small caliber and motion artifact. . No evidence of large aneurysm nor vascular malformation so far as can be seen Impression: Very limited study due to motion artifact. No evidence of large aneurysm nor vascular malformation.
--- NOTE | 2016-09-09 19:32 | CON ---
DATE: 09/09/2016 REASON FOR CONSULTATION: Head trauma, abnormal CAT scan. CHIEF COMPLAINT: The patient was brought into [facility] with a history of a fall, injured his left side of the face and abnormal CAT scan finding. HISTORY OF PRESENT ILLNESS: The patient is an 81-year-old right-handed male in usual state of health after a shower. After coming to the kitchen, he tripped by himself because of his right foot drop, he slammed his head against a hard object over his left side. Brief period of loss of consciousness; however, no witnessed tonic-clonic activities or bowel or bladder incontinence at the scene. He bruised with laceration all over his left lateral aspect of the orbit. No similar episodes happened in the past. The CT of the head was done, which was reported as a subdural supratentorial bleed over the right side. PAST MEDICAL HISTORY: End-stage renal disease on dialysis. Hypertension, neuropathy, status post right hip replacement following with a right foot drop, using AAFO. PERSONAL HISTORY: Denies smoking or alcohol use. ALLERGIES: CORTISONE. REVIEW OF SYSTEMS: As per H and P. MEDICATIONS: Coreg, Cymbalta, Flomax, Nephro-Faraz, Protonix, Renagel. PHYSICAL EXAMINATION: VITAL SIGNS: Blood pressure 137/75 with mean arterial pressure of 95, respiratory rate 16, temperature 98.1, pulse rate 69 and regular. NECK: Supple. No carotid bruit. HEART: Sounds are regular. CHEST: Fair air entry. EXTREMITIES: Distal muscle atrophy noted, leg more than his arm. NEUROLOGIC EXAMINATION: MENTAL STATUS EXAMINATION: The patient is examined in the presence of his family members. He is more awake, alert, oriented to person, place, and time. Speech is clear. Naming, repetition, fluency, comprehension all within normal. He denies any headache. CRANIAL NERVE EXAMINATION: Palpebral is decreased more than right side. Orbital tenderness noted. Mild abduction is decreased on his left side. Ecchymosis mostly over the left orbit. No raccoon sign noted. No facial sensory deficit. No facial asymmetry. Hearing is normal. Tongue is midline. Good gag. MOTOR: On outstretched hand with eyes closed, no drift noted. Power is symmetric on either side. Both legs he was able to lift against gravity. Significant weakness of right dorsiflexion and extensor hallucis longus with weakness of 1/5. DEEP TENDON REFLEXES: Grossly absent. Plantars are mute on the left side, right side with inability to evaluate because of the foot drop. SENSORY EXAMINATION: Significantly decreased position sense and vibration sense noted, left more than his right side. COORDINATION: Mild [id number] dysmetria proportional to his weakness. GAIT: Deferred at this time. CONCLUSION: Upon reviewing his history and neurological examination, the patient presenting with a post-concussion syndrome with a clinical as well as neurological diagnosis of right supratentorial bleed with mild mass effect. No intraparenchymal bleed is noted as per the CAT scan. The patient also suffering from significant distal sensory motor neuropathy superimposed with right foot drop, it could be from structural damage from his fracture, post-surgical manifestation. BLOOD WORKUP: WBC 5.1, hemoglobin 11.1, hematocrit 34.5, platelets 88. PT 14.3 , INR 1.38, PTT 31.4, sodium 142, potassium 4.5, chloride 97, bicarbonate 29, BUN 42, creatinine 4.1, alkaline phosphatase 166, total protein 8.5, globulin 4.5. RECOMMENDATIONS: 1. Recommend CT of the head as discussed above. MRA was done, no aneurysm or stenosis noted. The patient is recommended to have MRI of the brain to rule out injuries from the trauma. 2. Electroencephalogram also to be done to rule out any electrographic seizures. I do not want to put him on any other antiepileptic drugs or antiplatelets for now. Antiplatelets should be held for next 4-6 weeks. The patient should get physical therapy and AAFO to be provided on his right leg to improve his gait. If all workup is done, if no progression of his bleed; the patient can be discharged and should have a followup visit as outpatient. The patient's condition has been well discussed with the family members. Javi Collazo MD cc: [id number] TT: 09/09/2016 19:31:42 Confirmation # [id number] Dictation # [id number] BRINA
--- NOTE | 2016-09-09 21:28 | CP.PCM.CON ---
History of Present Illness - History of Present Illness History of Present Illness: REASONS FOR CONSULT : ESRD ON HD M W F ANEMIA OF CKD ELECTROLYTES ABNORMALITIES PT IS WELL KNOWN TO OUR SERVICE History of Present Illness: CC: fall w/o LOC, s/p dialysis today 81 year old male PMH CRF on dialysis (HD MWF) admitted s/p fall and head injury that occurred just prior to arrival. Family reports patient fell with the left side of his head hitting against the floor, witnessed by family, no loss of consciousness but was disoriented after the fall. Patient reports that the left side of his forehead is sore. Patient denies feeling weak, disoriented, n/v/cp/sob/LARA/syncope/incontinence. 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 Allergies: NKDA Home Meds: See Med List PMD: Jason Brand MD Visual Communications Instructor: Hosea Vazquez MD ED COURSE: VS Stable CT cervical spine w/o contrast CT head w/o contrast CT orbits/ facials w/o contrast EKG CMP CBC PTT, prothrombin time CT Head w/o contrast IMPRESSION: Subdural hematoma along the tentorium on the right mild effacement of adjacent sulci and gyri, no midline shift; atrophy and small vessel disease CT orbit: IMPRESSION: Left facial and periorbital bruising and laceration, no underlying fracture; right subdural hematoma along the tentorium Past Patient History - Past Medical History & Family History Past Medical History?: Yes - Past Social History Smoking Status: Never Smoked - CARDIAC Hx Hypertension: Yes - PULMONARY Hx Respiratory Disorders: No - NEUROLOGICAL Hx Transient Ischemic Attacks (TIA): Yes - HEENT Hx Cataracts: Yes - RENAL Hx Chronic Kidney Disease: Yes Hx Dialysis: Yes Type of Dialysis Access: AV Fistula Date of Last Dialysis Treatment: 09/08/16 Hx Renal Failure: Yes - ENDOCRINE/METABOLIC Hx Endocrine Disorders: No - HEMATOLOGICAL/ONCOLOGICAL Hx Blood Disorders: No - INTEGUMENTARY Hx Dermatological Problems: No - MUSCULOSKELETAL/RHEUMATOLOGICAL Hx Falls: Yes - GASTROINTESTINAL Hx Gastroesophageal Reflux: Yes Other/Comment: Bilateral inguinal hernis - GENITOURINARY/GYNECOLOGICAL Hx Prostate Problems: Yes Other/Comment: Turp in past - PSYCHIATRIC Hx Substance Use: No - SURGICAL HISTORY Hx Surgeries: Yes (Left arm AV shunt) Other/Comment: TUR-P many years ago. Cataract Sx - ANESTHESIA Hx Anesthesia: Yes Hx Anesthesia Reactions: No (None Known) Meds Allergies/Adverse Reactions: Allergies Allergy/AdvReac Type Severity Reaction Status Date / Time cortisone Allergy Mild hicups Verified 09/08/16 19:45 - Medications Medications: Current Medications Carvedilol (Coreg) 3.125 mg PO SUTUTHSA@0900,2100 [facility] Last Admin: 09/09/16 21:06 Dose: 3.125 mg Duloxetine HCl (Cymbalta) 30 mg PO QAM [facility] Last Admin: 09/09/16 09:59 Dose: 30 mg Pantoprazole Sodium (Protonix Ec Tab) 40 mg PO DAILY [facility] Last Admin: 09/09/16 09:59 Dose: 40 mg Sevelamer HCl (Renagel) 800 mg PO BID [facility] Last Admin: 09/09/16 16:59 Dose: 800 mg Tamsulosin HCl (Flomax) 0.4 mg PO QPM [facility] Last Admin: 09/09/16 16:59 Dose: 0.4 mg Vitamin B Complex/Vit C/Folic Acid (Nephro-Faraz) 1 tab PO DAILY [facility] Last Admin: 09/09/16 09:59 Dose: 1 tab Results - Vital Signs Recent Vital Signs: Last Vital Signs Temp 98.3 F 09/09/16 20:00 Pulse 72 09/09/16 21:06 Resp 21 09/09/16 20:00 BP 143/76 09/09/16 21:06 Pulse Ox 97 09/09/16 20:00 - Labs Result Diagrams: 09/09/16 04:30 09/09/16 04:30 Labs: Laboratory Results - last 24 hr 09/09/16 09/09/16 04:30 04:30 WBC 5.0 RBC 3.46 L Hgb 11.1 L Hct 34.5 L MCV 99.7 H MCH 32.0 H MCHC 32.1 L RDW 19.9 H Plt Count 88 L Sodium 142 Potassium 4.5 Chloride 97 L Carbon Dioxide 29 Anion Gap 21 H BUN 42 H Creatinine 4.1 H Est GFR ( Amer) 17 Est GFR (Non-Af Amer) 14 Random Glucose 95 Calcium 9.0 Total Bilirubin 1.7 H AST 35 ALT 23 Alkaline Phosphatase 166 H Total Protein 8.5 H Albumin 4.0 Globulin 4.5 H Albumin/Globulin Ratio 0.9 L Assessment & Plan - Assessment and Plan (Free Text) Assessment: ESRD ON HD M W F ANEMIA OF CKD .. H/H IS GOOD S/P FALL SUSTAINING L SUB DURAL HEMATOMA P : C/O CURRENT CARE WILL ARRANGE HD ON M W F C/O CURRENT MEDS - Date & Time Date: 09/09/16 Time: 14:00
[2016-09-09] MEDS ORDERED: Ergocalciferol 50,000 Intl Units Cap PO SCH (21:30)
--- NOTE | 2016-09-09 22:38 | CARD ---
APPROVED REPORT EKG Measurement Heart [id number] <Conclusion> Normal sinus rhythm Right bundle branch block Left anterior fascicular block Bifascicular block Abnormal ECG
[2016-09-10 05:13] LABS: HEMATOCRIT 33.7 % (35.0-51.0); MEAN CELL VOLUME 99.2 fl (80.0-94.0); MEAN CORPUSCULAR HEMOGLOBIN 32.2 pg (27.0-31.0); MEAN CORPUSCULAR HGB CONC 32.4 g/dL (33.0-37.0); RED CELL DISTRIBUTION WIDTH 19.2 % (11.5-14.5); WHITE BLOOD COUNT 4.2 K/uL (4.8-10.8)
[2016-09-10 05:23] LABS: CALCIUM 9.3 mg/dL (8.4-10.2); POTASSIUM 4.9 MMOL/L (3.6-5.0)
[2016-09-10 05:32] LABS: PARTIAL THROMBOPLASTIN TIME 30.3 SECONDS (23.3-32.5)
[2016-09-10] MEDS: Pantoprazole 40 mg EC Tab PO SCH (08:43)
--- NOTE | 2016-09-10 08:54 | CP.PCM.PN ---
Subjective - Date & Time of Evaluation Date of Evaluation: 09/10/16 Time of Evaluation: 07:10 - Subjective Subjective: Patient was seen and examined at bedside this morning. Patient is laying in bed alert, awake, and oriented x 3. Patient is feeling better than yesterday, and denies pain, chest pain, SOB, nausea, vomiting, or other complains. Objective - Vital Signs/Intake and Output Vital Signs (last 24 hours): Temp Pulse Resp BP Pulse Ox 97.4 F L 62 21 147/89 97 09/10/16 08:17 09/10/16 08:23 09/10/16 08:17 09/10/16 08:17 09/10/16 08:17 - Medications Medications: Current Medications Ascorbic Acid (Vitamin C 500 Mg Tab) 500 mg PO DAILY [facility] Last Admin: 09/10/16 08:43 Dose: 500 mg Carvedilol (Coreg) 3.125 mg PO SUTUTHSA@0900,2100 [facility] Last Admin: 09/09/16 21:06 Dose: 3.125 mg Duloxetine HCl (Cymbalta) 30 mg PO QAM [facility] Last Admin: 09/10/16 08:42 Dose: 30 mg Ergocalciferol (Drisdol 50,000 Intl Units Cap) 1 cap PO Q7D [facility] Last Admin: 09/09/16 22:51 Dose: 1 cap Pantoprazole Sodium (Protonix Ec Tab) 40 mg PO DAILY [facility] Last Admin: 09/10/16 08:43 Dose: 40 mg Sevelamer HCl (Renagel) 800 mg PO BID [facility] Last Admin: 09/10/16 08:43 Dose: 800 mg Tamsulosin HCl (Flomax) 0.4 mg PO QPM [facility] Last Admin: 09/09/16 16:59 Dose: 0.4 mg Vitamin B Complex/Vit C/Folic Acid (Nephro-Faraz) 1 tab PO DAILY [facility] Last Admin: 09/09/16 09:59 Dose: 1 tab - Labs Labs: 09/10/16 04:40 09/10/16 04:40 PT 13.6 SECONDS (9.6-11.2) H 09/10/16 04:40 INR 1.31 (0.92-1.08) H 09/10/16 04:40 APTT 30.3 SECONDS (23.3-32.5) 09/10/16 04:40 - Constitutional Appears: Non-toxic, No Acute Distress - Eye Exam Additional comments: left temporal laceration without sign of infection. Left periorbital ecchymosis noted, no changes compared with yesterday. - ENT Exam ENT Exam: Mucous Membranes Moist - Respiratory Exam Respiratory Exam: Clear to Ausculation Bilateral, NORMAL BREATHING PATTERN - Cardiovascular Exam Cardiovascular Exam: REGULAR RHYTHM, +S1, +S2 - GI/Abdominal Exam GI & Abdominal Exam: Soft, Normal Bowel Sounds. absent: Distended, Guarding, Rigid, Tenderness - Extremities Exam Extremities Exam: Normal Inspection. absent: Calf Tenderness Additional comments: mild lower extremities edema pitting 1 +, peripheral pulses present and bilateral - Neurological Exam Neurological Exam: Alert, Awake, Oriented x3 - Skin Skin Exam: Dry, Intact, Normal Color Assessment and Plan - Assessment and Plan (Free Text) Assessment: 81 year old male w/ CRF currently on dialysis (HD MWF) admitted s/p fall and head injury that occurred just prior to arrival. Plan: Subdural Hematoma -Secondary to Head injury after fall -ICU observation -Head CT w/o contrast showed : right-sided Subdural hematoma along the tentorium on the right mild effacement of adjacent sulci and gyri, no midline shift; atrophy and small vessel disease . -CT orbit: IMPRESSION: Left facial and periorbital bruising and laceration, no underlying fracture; right subdural hematoma along the tentorium. -Cervical sp CT scan: Abnormal finding. Recommended f/u MRI -Head MRI showed small acute subdural hematoma. No evidence of mass effect. As per neurology if the work up shows no progression of bleeding, patient can be discharged and f/u as outpatient. repeated CT head w/o contrast showed similar finding seen in previous CT scan Neurosurgery: Dr Veras -Neurology on board, Dr. 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 Cain/Dr. Vazquez on board. Waiting recommendations for dialysis while in house -Sevelamer 800 mg PO BID Essential Hypertension c/w home med. Carvedilol 3.125 mg PO heart healthy diet Benign prostatic hyperplasia c/w home Tamsulosin 0.4 mg daily PO DVT Prophylaxis DVT - SCDs for now
[2016-09-10] MEDS: Multivitamin Vitamin B Complex (Nephro-Vite) Tab PO SCH (09:58)
--- NOTE | 2016-09-10 12:20 | EEG ---
DATE: 09/09/2016 INTRODUCTION: This is a digitally recorded EEG monitoring using standard EEG montages. BACKGROUND RHYTHM: The EEG shows a background activity of 7 Hz theta activity in parietooccipital re gion. The EEG activity is bilaterally symmetrical and synchronous. Small amount of movement artifac t as well as myogenic artifact noticed in this EEG recording. ABNORMAL POTENTIALS: No spikes, sharp waves or focal slowing was seen. PHOTIC STIMULATION AND HYPERVENTILATION: Photic stimulation did not reveal any abnormality. Hyperve ntilation was not performed. IMPRESSION: Abnormal EEG. The above findings are consistent with mild bihemispheric cerebral dysfun ction. No epileptiform activity seen in this EEG recording. Luz Lombardi MD cc: [id number] TT: 09/10/2016 12:20:03 Confirmation # [id number] Dictation # [id number] [email or web address]
--- NOTE | 2016-09-10 13:13 | MRI ---
PROCEDURE: MRI BRAIN WITHOUT CONTRAST HISTORY: SDH - RT TENTORUAL R/O SHERED INJURIES COMPARISON: CT of the head 09/09/2016 TECHNIQUE: Multiplanar, multisequence MR images of the brain were obtained without intravenous contrast enhancement. FINDINGS: HEMORRHAGE: There is a small thin subdural hematoma over the right cerebral convexity and layering over the right tentorium. This measures 5 mm in maximal thickness. There is no associated mass effect. DWI: No evidence of an acute or early subacute infarction. BRAIN PARENCHYMA: No mass effect or edema. Severe chronic microvascular changes are seen in the periventricular white matter. VENTRICLES: Unremarkable. No hydrocephalus. CRANIUM: Unremarkable. ORBITS: Grossly unremarkable. PARANASAL SINUSES/MASTOIDS: Clear VASCULAR SYSTEM: Skull base flow voids intact. OTHER FINDINGS: None. IMPRESSION: Small acute subdural hematoma over the right convexity and layering over the right tentorium and middle cranial fossa. No evidence of mass effect
--- NOTE | 2016-09-10 23:25 | CP.PCM.PN ---
Subjective - Date & Time of Evaluation Date of Evaluation: 09/10/16 Time of Evaluation: 13:00 - Subjective Subjective: SEEN ON RENAL F/U IN ICU FEELS MUCH BETTER SON ON BED SIDE .. CASE D/W PT AND SON PT IS UP FOR TRANSFER TO [facility] WHERE HE IS GOING TO HAVE HIS HD Objective - Vital Signs/Intake and Output Vital Signs (last 24 hours): Temp Pulse Resp BP Pulse Ox 97.7 F 63 20 141/87 96 09/10/16 18:50 09/10/16 18:50 09/10/16 18:50 09/10/16 18:50 09/10/16 18:50 Intake and Output: 09/10/16 09/11/16 18:59 06:59 Output Total 50 Balance -50 - Medications Medications: Current Medications Ascorbic Acid (Vitamin C 500 Mg Tab) 500 mg PO DAILY [facility] Last Admin: 09/10/16 08:43 Dose: 500 mg Carvedilol (Coreg) 3.125 mg PO SUTUTHSA@0900,2100 [facility] Last Admin: 09/09/16 21:06 Dose: 3.125 mg Duloxetine HCl (Cymbalta) 30 mg PO QAM [facility] Last Admin: 09/10/16 08:42 Dose: 30 mg Ergocalciferol (Drisdol 50,000 Intl Units Cap) 1 cap PO Q7D [facility] Last Admin: 09/09/16 22:51 Dose: 1 cap Pantoprazole Sodium (Protonix Ec Tab) 40 mg PO DAILY [facility] Last Admin: 09/10/16 08:43 Dose: 40 mg Sevelamer HCl (Renagel) 800 mg PO BID [facility] Last Admin: 09/10/16 17:13 Dose: Not Given Tamsulosin HCl (Flomax) 0.4 mg PO QPM [facility] Last Admin: 09/10/16 22:01 Dose: 0.4 mg Vitamin B Complex/Vit C/Folic Acid (Nephro-Faraz) 1 tab PO DAILY [facility] Last Admin: 09/10/16 09:58 Dose: 1 tab - Labs Labs: 09/10/16 04:40 09/10/16 04:40 PT 13.6 SECONDS (9.6-11.2) H 09/10/16 04:40 INR 1.31 (0.92-1.08) H 09/10/16 04:40 APTT 30.3 SECONDS (23.3-32.5) 09/10/16 04:40 Assessment and Plan - Assessment and Plan (Free Text) Assessment: ESRD ON HD M W F ANEMIA OF CKD .. ON EPO MULTIPLS CO MORBIDITIES P : C/O CURRENT CARE C/O PRESENT MANAGEMENT
[2016-09-11] MEDS: Multivitamin Vitamin B Complex (Nephro-Vite) Tab PO SCH (09:00)
[2016-09-11] MEDS: Pantoprazole 40 mg EC Tab PO SCH (09:00)
--- NOTE | 2016-09-11 19:59 | CT ---
EXAM: CT Head Without Intravenous Contrast CLINICAL HISTORY: 81 years old, male; Condition or disease; Other: F/up subdural hematoma; Additional info: Follow up subdural hematoma TECHNIQUE: Axial computed tomography images of the head/brain without intravenous contrast. This CT exam was performed using one or more of the following dose reduction techniques: automated exposure control, adjustment of the mA and/or kV according to patient size, and/or use of iterative reconstruction technique. Coronal and sagittal reformatted images were created and reviewed. EXAM DATE/TIME: 09/11/2016 7:07 PM COMPARISON: CT - HEAD W/O CONTRAST 09/09/2016 8:26:27 AM FINDINGS: Brain: There is dilatation of sulci gyri and ventricles. There is no midline shift. There is decreased attenuation in periventricular white matter. There are no focal masses. Right subdural hematoma is again demonstrated. There is subdural blood along the tentorium on the right. Posterior parafalcine hemorrhage is unchanged. There continues to be blood in the right temporal fossa. There is minimal extension along the posterior right parietal lobe. Small focal hemorrhage adjacent to the posteromedial aspect of the right lateral ventricle is unchanged. Hastings-white differentiation is visualized. Ventricles: See above Bones/joints: Bones: Cranial vault is intact. Soft tissues: unremarkable Sinuses: There is no acute sinusitis. Ears and mastoids: Left middle ear and mastoid are unremarkable. There has been accumulation of a small amount of fluid in the right mastoid. Orbits: Orbital contents are unremarkable. IMPRESSION: No significant change in right subdural hematoma with blood in the right temporal fossa, layering along the right tentorium and in the posterior interhemispheric fissure; small hemorrhagic focus adjacent to the posteromedial aspect of the right lateral ventricle, unchanged; atrophy and small vessel disease Additional findings as described above.
[2016-09-11] MEDS: Calamine/Zinc Oxide LOTION TOP PRN (22:08)
--- NOTE | 2016-09-11 22:13 | CP.PCM.PN ---
Subjective - Date & Time of Evaluation Date of Evaluation: 09/11/16 Time of Evaluation: 15:00 - Subjective Subjective: ON HD M W F FEELS IMPROVED LABS REVIEWED Objective - Vital Signs/Intake and Output Vital Signs (last 24 hours): Temp Pulse Resp BP Pulse Ox 97.7 F 63 20 129/76 94 L 09/11/16 19:49 09/11/16 22:05 09/11/16 19:49 09/11/16 22:05 09/11/16 19:49 - Medications Medications: Current Medications Ascorbic Acid (Vitamin C 500 Mg Tab) 500 mg PO DAILY [facility] Last Admin: 09/10/16 08:43 Dose: 500 mg Calamine (Calamine Lotion) 1 applic TOP BID PRN PRN Reason: Itching / Pruritus Last Admin: 09/11/16 22:08 Dose: 1 applic Carvedilol (Coreg) 3.125 mg PO SUTUTHSA@0900,2100 [facility] Last Admin: 09/11/16 22:05 Dose: 3.125 mg Duloxetine HCl (Cymbalta) 30 mg PO QAM [facility] Last Admin: 09/10/16 08:42 Dose: 30 mg Ergocalciferol (Drisdol 50,000 Intl Units Cap) 1 cap PO Q7D [facility] Last Admin: 09/09/16 22:51 Dose: 1 cap Pantoprazole Sodium (Protonix Ec Tab) 40 mg PO DAILY [facility] Last Admin: 09/10/16 08:43 Dose: 40 mg Sevelamer HCl (Renagel) 800 mg PO BID [facility] Last Admin: 09/10/16 17:13 Dose: Not Given Tamsulosin HCl (Flomax) 0.4 mg PO QPM [facility] Last Admin: 09/10/16 22:01 Dose: 0.4 mg Vitamin B Complex/Vit C/Folic Acid (Nephro-Faraz) 1 tab PO DAILY [facility] Last Admin: 09/10/16 09:58 Dose: 1 tab - Labs Labs: 09/10/16 04:40 09/10/16 04:40 PT 13.6 SECONDS (9.6-11.2) H 09/10/16 04:40 INR 1.31 (0.92-1.08) H 09/10/16 04:40 APTT 30.3 SECONDS (23.3-32.5) 09/10/16 04:40 Assessment and Plan - Assessment and Plan (Free Text) Assessment: ESRD ON HD M W F ANEMIA OF CKD .. H/H STABLE C/O CURRENT CARE
[2016-09-12 06:28] LABS: HEMATOCRIT 33.7 % (35.0-51.0); MEAN CELL VOLUME 99.6 fl (80.0-94.0); MEAN CORPUSCULAR HEMOGLOBIN 32.5 pg (27.0-31.0); MEAN CORPUSCULAR HGB CONC 32.7 g/dL (33.0-37.0); RED CELL DISTRIBUTION WIDTH 18.9 % (11.5-14.5); WHITE BLOOD COUNT 4.2 K/uL (4.8-10.8)
[2016-09-12 06:35] LABS: CALCIUM 8.8 mg/dL (8.4-10.2); POTASSIUM 4.5 MMOL/L (3.6-5.0)
--- NOTE | 2016-09-12 08:17 | PN ---
DATE: 09/12/2016 NEUROLOGICAL PROBLEM: Posttraumatic subdural hematoma with change in mental status. PHYSICAL EXAMINATION: VITAL SIGNS: Blood pressure 139/83, mean arterial pressure 101, respiratory rate 18, temperature 97. 3 with a pulse rate of 66 and regular. NEUROLOGIC: The patient is awake and alert. He knows he is in the hospital. He states that his gir sharon is not in the room, though he knows he is in the hospital. He was told that she is in the ot her room. He follows commands. Mild left hemiparesis which is not changed. He moves all 4 extremit ies as per the command. Speech is fluent. He denies headache. CRANIAL NERVES: Pupils react to light. Extraocular movement normal. Good corneal reflexes. Mild f acial asymmetry. Flattening of the left nasolabial fold, which is unchanged to compare with my previ ous exam. CHANGE IN MENTAL STATUS: Considering his previous intracerebral bleed. The patient was requested to have a CT of the head over the last night, which was reported as at right tentorial subdural hematom a which is unchanged to compare with his previous exam. ASSESSMENT: His change in mental status. This is a transient, which is resolved at present. He has had electroencephalogram which does not show any electrographic seizures. Probably he change in men kaylie status is related to his sundowning. RECOMMENDATIONS: Continue the present management. No further management from no further interventio n is needed. If medically stable, the patient can be transferred to rehabilitation. Javi Collazo MD cc: [id number] TT: 09/12/2016 07:37:38 Confirmation # [id number] Dictation # [id number]
[2016-09-12] MEDS: Pantoprazole 40 mg EC Tab PO SCH (09:29)
--- NOTE | 2016-09-12 16:43 | RAD ---
PROCEDURE: Radiographs of the chest and bilateral ribs HISTORY: chest pain, s/p fall COMPARISON: None available. TECHNIQUE: Frontal radiograph of the chest and multiple oblique radiographs of the bilateral ribs were obtained. FINDINGS: RIGHT RIBS: No definitive evidence of acute displaced right-sided rib fracture. No obvious destructive lesions LEFT RIBS: No definitive evidence of acute displaced left-sided rib fracture or destructive lesion seen. LUNGS: Mild left basilar atelectasis felt to be present. Poor inspiration with low lung volumes, crowded bronchovascular markings and minor bibasilar atelectasis. PLEURA: No pneumothorax or pleural fluid. CARDIOVASCULAR: Cardiomegaly. . No pulmonary vascular congestion. OTHER FINDINGS: None. IMPRESSION: No definite evidence of acute of right or left-sided rib fracture. Poor inspiration with low lung volumes and minor bibasilar atelectasis. Stop note that the medial
--- NOTE | 2016-09-12 16:51 | CP.PCM.PN ---
<Bessie Oreilly - Last Filed: 09/12/16 21:22> Subjective - Date & Time of Evaluation Date of Evaluation: 09/12/16 Time of Evaluation: 07:10 - Subjective Subjective: Patient was seen and examined at bedside this morning, lying in bed in no acute distress, alert, awake and oriented x 3. Reports a normal bowel movement this morning. Objective - Vital Signs/Intake and Output Vital Signs (last 24 hours): Temp Pulse Resp BP Pulse Ox 97.2 F L 60 20 137/77 95 09/12/16 16:51 09/12/16 16:51 09/12/16 16:51 09/12/16 16:51 09/12/16 12:00 - Medications Medications: Current Medications Acetaminophen (Tylenol 325mg Tab) 650 mg PO Q6 PRN PRN Reason: Pain, moderate (4-7) Ascorbic Acid (Vitamin C 500 Mg Tab) 500 mg PO DAILY [facility] Last Admin: 09/12/16 09:29 Dose: 500 mg Calamine (Calamine Lotion) 1 applic TOP BID PRN PRN Reason: Itching / Pruritus Last Admin: 09/11/16 22:08 Dose: 1 applic Carvedilol (Coreg) 3.125 mg PO SUTUTHSA@0900,2100 [facility] Last Admin: 09/11/16 22:05 Dose: 3.125 mg Duloxetine HCl (Cymbalta) 30 mg PO QAM [facility] Last Admin: 09/12/16 09:29 Dose: 30 mg Ergocalciferol (Drisdol 50,000 Intl Units Cap) 1 cap PO Q7D [facility] Last Admin: 09/09/16 22:51 Dose: 1 cap Pantoprazole Sodium (Protonix Ec Tab) 40 mg PO DAILY [facility] Last Admin: 09/12/16 09:29 Dose: 40 mg Sevelamer HCl (Renagel) 800 mg PO BID [facility] Last Admin: 09/12/16 09:29 Dose: 800 mg Tamsulosin HCl (Flomax) 0.4 mg PO QPM [facility] Last Admin: 09/11/16 18:00 Dose: 0.4 mg Vitamin B Complex/Vit C/Folic Acid (Nephro-Faraz) 1 tab PO DAILY [facility] Last Admin: 09/11/16 09:00 Dose: 1 tab - Labs Labs: 09/12/16 05:25 09/12/16 05:25 PT 13.6 SECONDS (9.6-11.2) H 09/10/16 04:40 INR 1.31 (0.92-1.08) H 09/10/16 04:40 APTT 30.3 SECONDS (23.3-32.5) 09/10/16 04:40 - Constitutional Appears: Non-toxic, No Acute Distress - ENT Exam ENT Exam: Mucous Membranes Moist - Respiratory Exam Respiratory Exam: Clear to Ausculation Bilateral, NORMAL BREATHING PATTERN - Cardiovascular Exam Cardiovascular Exam: REGULAR RHYTHM, +S1, +S2, Murmur - GI/Abdominal Exam GI & Abdominal Exam: Soft, Normal Bowel Sounds. absent: Guarding, Rigid, Tenderness - Extremities Exam Extremities Exam: Normal Inspection. absent: Calf Tenderness, Pedal Edema - Neurological Exam Neurological Exam: Alert, Awake, Oriented x3 - Skin Skin Exam: Dry, Intact, Normal Color Assessment and Plan - Assessment and Plan (Free Text) Assessment: 81 year old male w/ CRF currently on dialysis (HD MWF) admitted s/p fall with stable small subdural hematoma, being evaluated for PT, waiting for TCU transfer for rehabilitation. Plan: Subdural Hematoma -Secondary to Head injury after fall -ICU observation -Head CT w/o contrast showed : right-sided Subdural hematoma along the tentorium on the right mild effacement of adjacent sulci and gyri, no midline shift; atrophy and small vessel disease . -CT orbit: IMPRESSION: Left facial and periorbital bruising and laceration, no underlying fracture; right subdural hematoma along the tentorium. -Cervical sp CT scan: Abnormal finding. Recommended f/u MRI -Head MRI showed small acute subdural hematoma. No evidence of mass effect. As per neurology if the work up shows no progression of bleeding, patient can be discharged and f/u as outpatient. repeated CT head w/o contrast showed similar finding seen in previous CT scan -Repeat head CT scan showed similar findings -Neurology on board, Dr. 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 Cain/Dr. Vazquez on board. c/w HD M W F -Sevelamer 800 mg PO BID Essential Hypertension c/w home med. Carvedilol 3.125 mg PO heart healthy diet Benign prostatic hyperplasia c/w home Tamsulosin 0.4 mg daily PO DVT Prophylaxis DVT - SCDs for now <Jason Brand - Last Filed: 09/15/16 06:45> Objective - Vital Signs/Intake and Output Vital Signs (last 24 hours): Temp Pulse Resp BP Pulse Ox 97.6 F 74 18 120/72 95 09/14/16 15:49 09/14/16 15:49 09/14/16 15:49 09/14/16 15:49 09/14/16 15:49 Intake and Output: 09/14/16 09/15/16 18:59 06:59 Intake Total 240 Balance 240 - Labs Labs: 09/14/16 08:40 09/14/16 08:40 PT 13.6 SECONDS (9.6-11.2) H 09/10/16 04:40 INR 1.31 (0.92-1.08) H 09/10/16 04:40 APTT 30.3 SECONDS (23.3-32.5) 09/10/16 04:40 Attending/Attestation - Attestation I have personally seen and examined this patient.: Yes I have fully participated in the care of the patient.: Yes I have reviewed all pertinent clinical information, including history, physical exam and plan: Yes
--- NOTE | 2016-09-12 16:51 | PCM.RRTMUL ---
PICC NURSE Nurse Assessment - Ventilator Settings Ventilator Respiratory Rate Setting:: 12 Ventilator Tidal Volume Setting:: 500 - Vital Signs Blood Pressure:: 137/77 Pulse Rate:: 60 Respiratory Rate:: 20 Temperature:: 97.2 F Responder Note - PICC NURSE Team PICC NURSE Leader:: Skinny Hassan Resident:: Bessie Oreilly Summary - Summary of Event Summary of Event: S: PICC NURSE was called by nurse due to chest pain. When we arrived to the PICC NURSE, patient was alert, awake and oriented X 3, complaining of left sided chest pain close to his left shoulder, no radiating. Denies SOB, nausea, vomiting, abdominal pain or other complains. O: VS: 137/77, HR: 60/min, RR: 20/min, T: 97.2 Alert, oriented X 3 CV: RRR, normal S1, S2, murmur respiratory: CTA to auscultation bilateral abd: soft, no distended, no tender to palpation ext: no edema, no calf tenderness, Corwin's sign neg musculoskeletal: pain reproduced by palpation neuro: alert , and oriented A: 81 y/o M with H/O CKD on HD s/p fall admitted with small subdural hematoma presenting chest pain most likley due to musculoskeletal etiology related with recent h/o fall, R/O ACS. P:EKG: showed no acute changes, and similar finding found in previous EKG Troponin I stat, repeat Q6 x 2 Ribs x ray to r/o fracture Tylenol 650 mg Q6 PRN for pain
[2016-09-12] MEDS: Multivitamin Vitamin B Complex (Nephro-Vite) Tab PO SCH (18:02)
--- NOTE | 2016-09-12 20:07 | CP.PCM.PN ---
Subjective - Date & Time of Evaluation Date of Evaluation: 09/12/16 Time of Evaluation: 15:00 - Subjective Subjective: SEEN ON RENAL F/U C/O L SIDED ATYPICAL C/P .. 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 HAD TO BE BUMPED TILL AM 2/2 LACK OF HD - RN VSS LABS ARE OK Objective - Vital Signs/Intake and Output Vital Signs (last 24 hours): Temp Pulse Resp BP Pulse Ox 97.2 F L 60 20 137/77 95 09/12/16 18:29 09/12/16 18:29 09/12/16 18:29 09/12/16 18:29 09/12/16 12:00 Intake and Output: 09/12/16 09/13/16 18:59 06:59 Intake Total 650 Output Total 100 Balance 550 - Medications Medications: Current Medications Acetaminophen (Tylenol 325mg Tab) 650 mg PO Q6 PRN PRN Reason: Pain, moderate (4-7) Ascorbic Acid (Vitamin C 500 Mg Tab) 500 mg PO DAILY [facility] Last Admin: 09/12/16 09:29 Dose: 500 mg Calamine (Calamine Lotion) 1 applic TOP BID PRN PRN Reason: Itching / Pruritus Last Admin: 09/11/16 22:08 Dose: 1 applic Carvedilol (Coreg) 3.125 mg PO SUTUTHSA@0900,2100 [facility] Last Admin: 09/11/16 22:05 Dose: 3.125 mg Duloxetine HCl (Cymbalta) 30 mg PO QAM [facility] Last Admin: 09/12/16 09:29 Dose: 30 mg Ergocalciferol (Drisdol 50,000 Intl Units Cap) 1 cap PO Q7D [facility] Last Admin: 09/09/16 22:51 Dose: 1 cap Pantoprazole Sodium (Protonix Ec Tab) 40 mg PO DAILY [facility] Last Admin: 09/12/16 09:29 Dose: 40 mg Sevelamer HCl (Renagel) 800 mg PO BID [facility] Last Admin: 09/12/16 18:02 Dose: 800 mg Tamsulosin HCl (Flomax) 0.4 mg PO QPM [facility] Last Admin: 09/12/16 18:02 Dose: 0.4 mg Vitamin B Complex/Vit C/Folic Acid (Nephro-Faraz) 1 tab PO DAILY [facility] Last Admin: 09/12/16 18:02 Dose: 1 tab - Labs Labs: 09/12/16 05:25 09/12/16 05:25 PT 13.6 SECONDS (9.6-11.2) H 09/10/16 04:40 INR 1.31 (0.92-1.08) H 09/10/16 04:40 APTT 30.3 SECONDS (23.3-32.5) 09/10/16 04:40 Assessment and Plan - Assessment and Plan (Free Text) Assessment: ESRD ON HD M W F .. HD IN AM ANEMIA OF CKD .. ON EPO SUB DURAL HEMATOMA / MULTIPLE CO MORBIDITIES P: C/O CURRENT CARE HD IN AM
--- NOTE | 2016-09-12 22:08 | CARD ---
APPROVED REPORT EKG Measurement Heart [id number] <Conclusion> Normal sinus rhythm Right bundle branch block Left anterior fascicular block Bifascicular block Abnormal ECG
[2016-09-13] MEDS: Pantoprazole 40 mg EC Tab PO SCH (08:34)
[2016-09-13] MEDS: Multivitamin Vitamin B Complex (Nephro-Vite) Tab PO SCH (08:35)
[2016-09-13] MEDS: Calamine/Zinc Oxide LOTION TOP PRN (09:51)
--- NOTE | 2016-09-13 13:06 | CP.PCM.PN ---
<Bessie Oreilly - Last Filed: 09/13/16 13:24> Subjective - Date & Time of Evaluation Date of Evaluation: 09/13/16 Time of Evaluation: 07:55 - Subjective Subjective: Patient was seen and examined at bedside this morning. Patient was alert, awake , and oriented X 3. No event overnights. Denies chest pain, SOB, abdominal pain , nausea, vomiting or other complains at this evaluation. Objective - Vital Signs/Intake and Output Vital Signs (last 24 hours): Temp Pulse Resp BP Pulse Ox 97.7 F 62 18 127/77 97 09/13/16 12:42 09/13/16 12:42 09/13/16 12:42 09/13/16 12:42 09/13/16 12:42 - Medications Medications: Current Medications Acetaminophen (Tylenol 325mg Tab) 650 mg PO Q6 PRN PRN Reason: Pain, moderate (4-7) Last Admin: 09/13/16 00:52 Dose: 650 mg Ascorbic Acid (Vitamin C 500 Mg Tab) 500 mg PO DAILY [facility] Last Admin: 09/13/16 08:35 Dose: 500 mg Calamine (Calamine Lotion) 1 applic TOP BID PRN PRN Reason: Itching / Pruritus Last Admin: 09/13/16 09:51 Dose: 1 applic Carvedilol (Coreg) 3.125 mg PO SUTUTHSA@0900,2100 [facility] Last Admin: 09/13/16 08:33 Dose: 3.125 mg Duloxetine HCl (Cymbalta) 30 mg PO QAM [facility] Last Admin: 09/13/16 08:34 Dose: 30 mg Ergocalciferol (Drisdol 50,000 Intl Units Cap) 1 cap PO Q7D [facility] Last Admin: 09/09/16 22:51 Dose: 1 cap Pantoprazole Sodium (Protonix Ec Tab) 40 mg PO DAILY [facility] Last Admin: 09/13/16 08:34 Dose: 40 mg Sevelamer HCl (Renagel) 800 mg PO BID [facility] Last Admin: 09/13/16 08:34 Dose: 800 mg Tamsulosin HCl (Flomax) 0.4 mg PO QPM [facility] Last Admin: 09/12/16 18:02 Dose: 0.4 mg Vitamin B Complex/Vit C/Folic Acid (Nephro-Faraz) 1 tab PO DAILY [facility] Last Admin: 09/13/16 08:35 Dose: 1 tab - Labs Labs: 09/12/16 05:25 09/12/16 05:25 PT 13.6 SECONDS (9.6-11.2) H 09/10/16 04:40 INR 1.31 (0.92-1.08) H 09/10/16 04:40 APTT 30.3 SECONDS (23.3-32.5) 09/10/16 04:40 - Additional Findings Additional findings: Constitutional Appears: Non-toxic, No Acute Distress - ENT Exam ENT Exam: Mucous Membranes Moist - Respiratory Exam Respiratory Exam: Clear to Ausculation Bilateral, NORMAL BREATHING PATTERN - Cardiovascular Exam Cardiovascular Exam: REGULAR RHYTHM, +S1, +S2, Murmur - GI/Abdominal Exam GI & Abdominal Exam: Soft, Normal Bowel Sounds. absent: Guarding, Rigid, Tenderness - Extremities Exam Extremities Exam: Normal Inspection. absent: Calf Tenderness, Pedal Edema - Neurological Exam Neurological Exam: Alert, Awake, Oriented x3 - Skin Skin Exam: Dry, Intact, Normal Color Assessment and Plan - Assessment and Plan (Free Text) Assessment: 81 year old male w/ CRF currently on dialysis (HD MWF) admitted s/p fall with stable small subdural hematoma, being evaluated for PT, waiting for TCU transfer for rehabilitation. Plan: Subdural Hematoma -Stable -Secondary to Head injury after fall -Last repeated CT head w/o contrast showed similar finding seen in previous CT scan -Neurology on board, Dr. 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 Cain/Dr. Vazquez on board. c/w HD M W F -Sevelamer 800 mg PO BID Atypical left chest pain most likely musculoskeletal etiology -Troponin I x 2 neg -EKG showed similar previous findings, no acute changes. -C-xray Ribs: negative for fractures. Essential Hypertension c/w home med. Carvedilol 3.125 mg PO heart healthy diet Benign prostatic hyperplasia c/w home Tamsulosin 0.4 mg daily PO DVT Prophylaxis DVT - SCDs for now Disposition Transfer to TCU Pending dialysis <Toshia Sarkar - Last Filed: 09/14/16 08:24> Objective - Vital Signs/Intake and Output Vital Signs (last 24 hours): Temp Pulse Resp BP Pulse Ox 98.5 F 86 18 135/82 95 09/14/16 07:54 09/14/16 07:54 09/14/16 07:54 09/14/16 07:54 09/14/16 07:54 Intake and Output: 09/14/16 09/14/16 06:59 18:59 Intake Total 240 Balance 240 - Medications Medications: Current Medications Acetaminophen (Tylenol 325mg Tab) 650 mg PO Q6 PRN PRN Reason: Pain, moderate (4-7) Last Admin: 09/13/16 17:25 Dose: 650 mg Ascorbic Acid (Vitamin C 500 Mg Tab) 500 mg PO DAILY [facility] Last Admin: 09/13/16 08:35 Dose: 500 mg Azithromycin (Zithromax) 500 mg PO DAILY [facility] Last Admin: 09/13/16 21:04 Dose: 500 mg Calamine (Calamine Lotion) 1 applic TOP BID PRN PRN Reason: Itching / Pruritus Last Admin: 09/13/16 09:51 Dose: 1 applic Carvedilol (Coreg) 3.125 mg PO SUTUTHSA@0900,2100 [facility] Last Admin: 09/13/16 20:31 Dose: 3.125 mg Duloxetine HCl (Cymbalta) 30 mg PO QAM [facility] Last Admin: 09/13/16 08:34 Dose: 30 mg Ergocalciferol (Drisdol 50,000 Intl Units Cap) 1 cap PO Q7D [facility] Last Admin: 09/09/16 22:51 Dose: 1 cap Pantoprazole Sodium (Protonix Ec Tab) 40 mg PO DAILY [facility] Last Admin: 09/13/16 08:34 Dose: 40 mg Sevelamer HCl (Renagel) 800 mg PO BID [facility] Last Admin: 09/13/16 17:22 Dose: 800 mg Tamsulosin HCl (Flomax) 0.4 mg PO QPM [facility] Last Admin: 09/13/16 17:22 Dose: 0.4 mg Vitamin B Complex/Vit C/Folic Acid (Nephro-Faraz) 1 tab PO DAILY [facility] Last Admin: 09/13/16 08:35 Dose: 1 tab - Labs Labs: 09/12/16 05:25 09/12/16 05:25 PT 13.6 SECONDS (9.6-11.2) H 09/10/16 04:40 INR 1.31 (0.92-1.08) H 09/10/16 04:40 APTT 30.3 SECONDS (23.3-32.5) 09/10/16 04:40 Assessment and Plan - Assessment and Plan (Free Text) Assessment: ATTENDING NOTE/ ATTESTATION Patient seen and examined. Case discussed with resident. Agree with plan to d/c to TCU.
--- NOTE | 2016-09-13 23:19 | CP.PCM.PN ---
Subjective - Date & Time of Evaluation Date of Evaluation: 09/13/16 Time of Evaluation: 19:00 - Subjective Subjective: SEEN ON RENAL F/U FEELS IMPROVED HIS HD WAS BUMPED TO TOMORROW Objective - Vital Signs/Intake and Output Vital Signs (last 24 hours): Temp Pulse Resp BP Pulse Ox 97.8 F 72 16 134/84 96 09/13/16 20:31 09/13/16 20:31 09/13/16 20:31 09/13/16 20:31 09/13/16 20:31 Intake and Output: 09/13/16 09/14/16 18:59 06:59 Intake Total 500 Balance 500 - Medications Medications: Current Medications Acetaminophen (Tylenol 325mg Tab) 650 mg PO Q6 PRN PRN Reason: Pain, moderate (4-7) Last Admin: 09/13/16 17:25 Dose: 650 mg Ascorbic Acid (Vitamin C 500 Mg Tab) 500 mg PO DAILY [facility] Last Admin: 09/13/16 08:35 Dose: 500 mg Azithromycin (Zithromax) 500 mg PO DAILY [facility] Last Admin: 09/13/16 21:04 Dose: 500 mg Calamine (Calamine Lotion) 1 applic TOP BID PRN PRN Reason: Itching / Pruritus Last Admin: 09/13/16 09:51 Dose: 1 applic Carvedilol (Coreg) 3.125 mg PO SUTUTHSA@0900,2100 [facility] Last Admin: 09/13/16 20:31 Dose: 3.125 mg Duloxetine HCl (Cymbalta) 30 mg PO QAM [facility] Last Admin: 09/13/16 08:34 Dose: 30 mg Ergocalciferol (Drisdol 50,000 Intl Units Cap) 1 cap PO Q7D [facility] Last Admin: 09/09/16 22:51 Dose: 1 cap Pantoprazole Sodium (Protonix Ec Tab) 40 mg PO DAILY [facility] Last Admin: 09/13/16 08:34 Dose: 40 mg Sevelamer HCl (Renagel) 800 mg PO BID [facility] Last Admin: 09/13/16 17:22 Dose: 800 mg Tamsulosin HCl (Flomax) 0.4 mg PO QPM [facility] Last Admin: 09/13/16 17:22 Dose: 0.4 mg Vitamin B Complex/Vit C/Folic Acid (Nephro-Faraz) 1 tab PO DAILY [facility] Last Admin: 09/13/16 08:35 Dose: 1 tab - Labs Labs: 09/12/16 05:25 09/12/16 05:25 PT 13.6 SECONDS (9.6-11.2) H 09/10/16 04:40 INR 1.31 (0.92-1.08) H 09/10/16 04:40 APTT 30.3 SECONDS (23.3-32.5) 09/10/16 04:40 Assessment and Plan - Assessment and Plan (Free Text) Assessment: ESRD ON HD TIW C/O CURRENT CARE
[2016-09-14 05:30] VITALS: RESP 18
[2016-09-14] MEDS: Pantoprazole 40 mg EC Tab PO SCH (08:46)
[2016-09-14] MEDS: Multivitamin Vitamin B Complex (Nephro-Vite) Tab PO SCH (08:46)
[2016-09-14 08:59] LABS: HEMATOCRIT 35.1 % (35.0-51.0); MEAN CELL VOLUME 99.6 fl (80.0-94.0); MEAN CORPUSCULAR HEMOGLOBIN 32.7 pg (27.0-31.0); MEAN CORPUSCULAR HGB CONC 32.8 g/dL (33.0-37.0); RED CELL DISTRIBUTION WIDTH 17.4 % (11.5-14.5); WHITE BLOOD COUNT 4.6 K/uL (4.8-10.8)
[2016-09-14 09:04] LABS: ALB/GLOB RATIO 0.9 (1.0-2.1); BILIRUBIN,TOTAL 2.7 mg/dl (0.2-1.3); CALCIUM 8.7 mg/dL (8.4-10.2); TOTAL PROTEIN 8.2 G/DL (6.3-8.2)
--- NOTE | 2016-09-14 12:53 | CP.PCM.DIS ---
<AngeloAdam - Last Filed: 09/14/16 12:57> Provider - Provider Date of Admission: 09/08/16 23:25 Attending physician: Jason Brand MD Primary care physician: Dr Brand Consults: Nephro(Dr Cain) Neurosx(Dr Veras) Time Spent in preparation of Discharge (in minutes): 30 Diagnosis - Discharge Diagnosis (1) Subdural hematoma Status: Acute Comment: Stable. F/U as outpatient (2) ESRD (end stage renal disease) on dialysis Status: Chronic Comment: Cont HM 3 times/week. Stable (3) Hypertension Status: Chronic Comment: Controlled Hospital Course - Lab Results Lab Results: Micro Results 09/10/16 18:25 Nose MRSA Culture (Admit) - Final MRSA NOT DETECTED 09/09/16 07:46 Naris MRSA Culture (Admit) - Final MRSA NOT DETECTED Most Recent Lab Values WBC 4.6 K/uL (4.8-10.8) L 09/14/16 08:40 RBC 3.52 Mil/uL (4.40-5.90) L 09/14/16 08:40 Hgb 11.5 g/dL (12.0-18.0) L 09/14/16 08:40 Hct 35.1 % (35.0-51.0) 09/14/16 08:40 MCV 99.6 fl (80.0-94.0) H 09/14/16 08:40 MCH 32.7 pg (27.0-31.0) H 09/14/16 08:40 MCHC 32.8 g/dL (33.0-37.0) L 09/14/16 08:40 RDW 17.4 % (11.5-14.5) H 09/14/16 08:40 Plt Count 66 K/uL (130-400) L 09/14/16 08:40 MPV 9.3 fl (7.2-11.7) 09/08/16 20:48 Neut % (Auto) 65.3 % (50.0-75.0) 09/08/16 20:48 Lymph % (Auto) 12.5 % (20.0-40.0) L 09/08/16 20:48 [place] % (Auto) 13.3 % (0.0-10.0) H 09/08/16 20:48 Eos % (Auto) 8.2 % (0.0-4.0) H 09/08/16 20:48 Baso % (Auto) 0.7 % (0.0-2.0) 09/08/16 20:48 Neut # 3.1 K/uL (1.8-7.0) 09/08/16 20:48 Lymph # 0.6 K/uL (1.0-4.3) L 09/08/16 20:48 [place] # 0.6 K/uL (0.0-0.8) 09/08/16 20:48 Eos # 0.4 K/uL (0.0-0.7) 09/08/16 20:48 Baso # 0.0 K/uL (0.0-0.2) 09/08/16 20:48 PT 13.6 SECONDS (9.6-11.2) H 09/10/16 04:40 INR 1.31 (0.92-1.08) H 09/10/16 04:40 APTT 30.3 SECONDS (23.3-32.5) 09/10/16 04:40 Sodium 138 mmol/l (132-148) 09/14/16 08:40 Potassium 4.0 MMOL/L (3.6-5.0) 09/14/16 08:40 Chloride 95 mmol/L (98-107) L 09/14/16 08:40 Carbon Dioxide 29 mmol/L (22-30) 09/14/16 08:40 Anion Gap 18 (10-20) 09/14/16 08:40 BUN 26 mg/dl (9-20) H 09/14/16 08:40 Creatinine 3.7 mg/dL (0.8-1.5) H 09/14/16 08:40 Est GFR ( Amer) 19 09/14/16 08:40 Est GFR (Non-Af Amer) 16 09/14/16 08:40 Random Glucose 81 mg/dL (75-110) 09/14/16 08:40 Calcium 8.7 mg/dL (8.4-10.2) 09/14/16 08:40 Total Bilirubin 2.7 mg/dl (0.2-1.3) H 09/14/16 08:40 AST 31 U/L (17-59) 09/14/16 08:40 ALT 18 U/L (21-72) L D 09/14/16 08:40 Alkaline Phosphatase 132 U/L (38-126) H D 09/14/16 08:40 Troponin I < 0.0120 ng/mL (0.00-0.120) 09/13/16 19:57 Total Protein 8.2 G/DL (6.3-8.2) 09/14/16 08:40 Albumin 4.0 g/dL (3.5-5.0) 09/14/16 08:40 Globulin 4.3 gm/dL (2.2-3.9) H 09/14/16 08:40 Albumin/Globulin Ratio 0.9 (1.0-2.1) L 09/14/16 08:40 - Hospital Course Hospital Course: 81 y/o M with PMhx of ESRD on HM 3 times/week and HTN, admitted to hosp s/p fall and L/eye hematoma, found to have subdural hematoma on R/temporal area on Head CT the day of admission. No neurological signs. Patient was stable, evaluated by NeuroSx and admitted for further work up and management. While in the hosp he cont HM 3 times/week and was evaluated by Nephro(Dr Cain). He was called INSURANCE CLAIMS ANALYST for [place] on 09/12/16 happened to be muscleskeletal origin with normal CXR. Patient repeated Head CT 2 days after admission showed no significant interval changes compared with the one on admission. NeuroSx recommended no Sx intervention and today patient is stable and ready to be transferred to TCU for further monitoring and PT services after HD session yesterday evening. Discharge Exam - Head Exam Head Exam: NORMOCEPHALIC. absent: ATRAUMATIC (4 centimeter ecchymotic lesion above left eyebrow) - Eye Exam Eye Exam: PERRL - ENT Exam ENT Exam: Mucous Membranes Moist - Respiratory Exam Respiratory Exam: Clear to PA & Lateral, NORMAL BREATHING PATTERN, UNREMARKABLE. absent: Rhonchi - Cardiovascular Exam Cardiovascular Exam: REGULAR RHYTHM, +S1, +S2. absent: Gallop - GI/Abdominal Exam GI & Abdominal Exam: Normal Bowel Sounds. absent: Distended, Tenderness - Extremities Exam Extremities exam: normal capillary refill, pedal pulses present - Neurological Exam Neurological exam: Alert, Oriented x3 - Psychiatric Exam Psychiatric exam: Normal Affect, Normal Mood - Skin Skin Exam: Warm Discharge Plan - Follow Up Plan Condition: STABLE Disposition: TRANSF TO SNF Patient education suggested?: Yes Instructions: Subdural Hematoma (DC) Additional Instructions: Patient will be transferred to TCU for further monitoring and PT services <Toshia Sarkar - Last Filed: 09/15/16 11:06> Provider - Provider Date of Admission: 09/08/16 23:25 Attending physician: Jason Brand MD Hospital Course - Lab Results Lab Results: Micro Results 09/10/16 18:25 Nose MRSA Culture (Admit) - Final MRSA NOT DETECTED 09/09/16 07:46 Naris MRSA Culture (Admit) - Final MRSA NOT DETECTED Most Recent Lab Values WBC 4.6 K/uL (4.8-10.8) L 09/14/16 08:40 RBC 3.52 Mil/uL (4.40-5.90) L 09/14/16 08:40 Hgb 11.5 g/dL (12.0-18.0) L 09/14/16 08:40 Hct 35.1 % (35.0-51.0) 09/14/16 08:40 MCV 99.6 fl (80.0-94.0) H 09/14/16 08:40 MCH 32.7 pg (27.0-31.0) H 09/14/16 08:40 MCHC 32.8 g/dL (33.0-37.0) L 09/14/16 08:40 RDW 17.4 % (11.5-14.5) H 09/14/16 08:40 Plt Count 66 K/uL (130-400) L 09/14/16 08:40 MPV 9.3 fl (7.2-11.7) 09/08/16 20:48 Neut % (Auto) 65.3 % (50.0-75.0) 09/08/16 20:48 Lymph % (Auto) 12.5 % (20.0-40.0) L 09/08/16 20:48 [place] % (Auto) 13.3 % (0.0-10.0) H 09/08/16 20:48 Eos % (Auto) 8.2 % (0.0-4.0) H 09/08/16 20:48 Baso % (Auto) 0.7 % (0.0-2.0) 09/08/16 20:48 Neut # 3.1 K/uL (1.8-7.0) 09/08/16 20:48 Lymph # 0.6 K/uL (1.0-4.3) L 09/08/16 20:48 [place] # 0.6 K/uL (0.0-0.8) 09/08/16 20:48 Eos # 0.4 K/uL (0.0-0.7) 09/08/16 20:48 Baso # 0.0 K/uL (0.0-0.2) 09/08/16 20:48 PT 13.6 SECONDS (9.6-11.2) H 09/10/16 04:40 INR 1.31 (0.92-1.08) H 09/10/16 04:40 APTT 30.3 SECONDS (23.3-32.5) 09/10/16 04:40 Sodium 138 mmol/l (132-148) 09/14/16 08:40 Potassium 4.0 MMOL/L (3.6-5.0) 09/14/16 08:40 Chloride 95 mmol/L (98-107) L 09/14/16 08:40 Carbon Dioxide 29 mmol/L (22-30) 09/14/16 08:40 Anion Gap 18 (10-20) 09/14/16 08:40 BUN 26 mg/dl (9-20) H 09/14/16 08:40 Creatinine 3.7 mg/dL (0.8-1.5) H 09/14/16 08:40 Est GFR ( Amer) 19 09/14/16 08:40 Est GFR (Non-Af Amer) 16 09/14/16 08:40 Random Glucose 81 mg/dL (75-110) 09/14/16 08:40 Calcium 8.7 mg/dL (8.4-10.2) 09/14/16 08:40 Total Bilirubin 2.7 mg/dl (0.2-1.3) H 09/14/16 08:40 AST 31 U/L (17-59) 09/14/16 08:40 ALT 18 U/L (21-72) L D 09/14/16 08:40 Alkaline Phosphatase 132 U/L (38-126) H D 09/14/16 08:40 Troponin I < 0.0120 ng/mL (0.00-0.120) 09/13/16 19:57 Total Protein 8.2 G/DL (6.3-8.2) 09/14/16 08:40 Albumin 4.0 g/dL (3.5-5.0) 09/14/16 08:40 Globulin 4.3 gm/dL (2.2-3.9) H 09/14/16 08:40 Albumin/Globulin Ratio 0.9 (1.0-2.1) L 09/14/16 08:40 Discharge Exam - Skin Additional comments: PATIENT SEEN AND EXAMINED. CASE DISCUSSED WITH RESIDENT. AGREE WITH PLAN - DISCHARGE TO TCU
[2016-09-14 15:50] VITALS: BP 120/72; PULSE 74; TEMP 97.6; O2SAT 95
== END 2016-09-14 17:00 | DRG 85 ==
LOC: H.ER 19:37 → H.ERHOLD 23:25 → H.ICU/CCU 09-09 00:45 → H.TEL 09-10 14:56
PROVIDERS: ADMIT Family Medicine; ATTEND Family Medicine
PROC: 0HQ1XZZ Repair Face Skin, External Approach (ICD-10-PCS; principal; 2016-09-08)
PROC: 5A1D00Z (ICD-10-PCS; 2016-09-13)
DX: S06.5X0A Traumatic subdural hemorrhage without loss of consciousness, initial encounter (principal); N18.6 End stage renal disease; G62.89 Other specified polyneuropathies; I12.0 Hypertensive chronic kidney disease with stage 5 chronic kidney disease or end stage renal disease; S01.81XA Laceration without foreign body of other part of head, initial encounter; D63.1 Anemia in chronic kidney disease; K21.9 Gastro-esophageal reflux disease without esophagitis; M51.26 Other intervertebral disc displacement, lumbar region; M19.90 Unspecified osteoarthritis, unspecified site; N40.0 Benign prostatic hyperplasia without lower urinary tract symptoms; M21.371 Foot drop, right foot; Z99.2 Dependence on renal dialysis; Z96.641 Presence of right artificial hip joint; Z86.73 Personal history of transient ischemic attack (TIA), and cerebral infarction without residual deficits; W01.0XXA Fall on same level from slipping, tripping and stumbling without subsequent striking against object, initial encounter; Y92.003 Bedroom of unspecified non-institutional (private) residence as the place of occurrence of the external cause

== ENCOUNTER 2016-09-14 17:22 | Inpatient (IN) | payer OTHER ==
[2016-09-14 17:27] VITALS: BMI 21.9
[2016-09-14] MEDS ORDERED: Tuberculin 5 Units/0.1 ml Inj ID ONE (19:00)
[2016-09-14] MEDS ORDERED: Calamine/Zinc Oxide LOTION TOP PRN (19:23)
[2016-09-15 05:24] LABS: HEMATOCRIT 33.8 % (35.0-51.0); MEAN CELL VOLUME 99.8 fl (80.0-94.0); MEAN CORPUSCULAR HEMOGLOBIN 32.5 pg (27.0-31.0); MEAN CORPUSCULAR HGB CONC 32.6 g/dL (33.0-37.0); RED CELL DISTRIBUTION WIDTH 17.5 % (11.5-14.5); WHITE BLOOD COUNT 3.9 K/uL (4.8-10.8)
[2016-09-15 05:33] LABS: ALB/GLOB RATIO 0.9 (1.0-2.1); BILIRUBIN,TOTAL 2.7 mg/dl (0.2-1.3); CALCIUM 8.6 mg/dL (8.4-10.2); POTASSIUM 4.2 MMOL/L (3.6-5.0); TOTAL PROTEIN 7.9 G/DL (6.3-8.2)
[2016-09-15 05:36] LABS: PARTIAL THROMBOPLASTIN TIME 33.4 SECONDS (23.3-32.5)
--- NOTE | 2016-09-15 10:34 | CP.PCM.HP ---
<Bessie Oreilly - Last Filed: 09/15/16 16:08> History of Present Illness - History of Present Illness History of Present Illness: 81 y/o M with PMhx of ESRD on HM 3 times/week and HTN, admitted to hosp s/p fall and L/eye hematoma, found to have subdural hematoma on R/temporal area on Head CT the day of admission. No neurological signs. Patient was stable, evaluated by NeuroSx and admitted for further work up and management. While in the hosp he cont HM 3 times/week and was evaluated by Nephro(Dr Cain). He was called DRUG COORDINATOR for [place] on 09/12/16 happened to be muscleskeletal origin with no evidence of fracture in Ribs X ray. Patient repeated Head CT 2 days after admission showed no significant interval changes compared with the one on admission. Patient was transferred to TCU for Physical therapy eval and treatment. Patient will continue with hemodialysis on M, W, F as scheduled while in TCU. Today patient was seen and examined at bedside, he was alert, awake and oriented, but complaining of new onset cough associated with white sputum, non blood, and wheezing. Denies SOB, chills, nausea, vomiting, abdominal pain, diarrheas. Present on Admission - Present on Admission Any Indicators Present on Admission: No History of DVT/PE: No History of Uncontrolled Diabetes: No Urinary Catheter: No Decubitus Ulcer Present: No Review of Systems - Constitutional Constitutional: As Per HPI - Cardiovascular Cardiovascular: As Per HPI - Respiratory Respiratory: As Per HPI Past Patient History - Past Medical History & Family History Past Medical History?: Yes - Past Social History Smoking Status: Never Smoked - CARDIAC Hx Cardiac Disorders: Yes Hx Hypertension: Yes - PULMONARY Hx Respiratory Disorders: No - NEUROLOGICAL Hx Neurological Disorder: Yes Hx Transient Ischemic Attacks (TIA): Yes - HEENT Hx Cataracts: Yes - RENAL Hx Chronic Kidney Disease: Yes Hx Dialysis: Yes Date of Last Dialysis Treatment: 09/14/16 Hx Renal Failure: Yes - ENDOCRINE/METABOLIC Hx Endocrine Disorders: No - HEMATOLOGICAL/ONCOLOGICAL Hx Blood Disorders: No - INTEGUMENTARY Hx Dermatological Problems: No - MUSCULOSKELETAL/RHEUMATOLOGICAL Hx Falls: Yes - GASTROINTESTINAL Hx Gastroesophageal Reflux: Yes Other/Comment: Bilateral inguinal hernias - GENITOURINARY/GYNECOLOGICAL Hx Prostate Problems: Yes Other/Comment: Turp in past - PSYCHIATRIC Hx Substance Use: No - SURGICAL HISTORY Hx Surgeries: Yes (Left arm AV shunt) Other/Comment: TUR-P many years ago. Cataract Sx - ANESTHESIA Hx Anesthesia: Yes Hx Anesthesia Reactions: No (None Known) Meds Allergies/Adverse Reactions: Allergies Allergy/AdvReac Type Severity Reaction Status Date / Time cortisone Allergy Mild hicups Verified 09/14/16 17:27 Physical Exam - Constitutional Appears: Non-toxic, No Acute Distress - ENT Exam ENT Exam: Mucous Membranes Moist - Respiratory Exam Respiratory Exam: Chest Wall Tenderness (tender to palpation of left upper and lower chest), Rales (fine, diffuse in right lower lung field), Rhonchi (difusse bilateral), Wheezes (diffusse, scant wheezes in right lung to auscultation), NORMAL BREATHING PATTERN. absent: Respiratory Distress - Cardiovascular Exam Cardiovascular Exam: REGULAR RHYTHM, +S1, +S2 Additional comments: Murmur - GI/Abdominal Exam GI & Abdominal Exam: Normal Bowel Sounds, Soft. absent: Guarding, Rebound, Rigid, Tenderness - Extremities Exam Extremities exam: Positive for: normal inspection. Negative for: calf tenderness, pedal edema - Neurological Exam Neurological exam: Alert, Oriented x3 - Skin Skin Exam: Dry, Intact, Normal Color Results - Vital Signs Recent Vital Signs: Last Vital Signs Temp 99 F 09/14/16 20:47 Pulse 64 09/14/16 20:47 Resp 20 09/14/16 20:47 BP 123/63 09/14/16 20:47 Pulse Ox 100 09/14/16 20:47 - Labs Result Diagrams: 09/15/16 04:00 09/15/16 04:00 Labs: Laboratory Results - last 24 hr 09/15/16 09/15/16 09/15/16 04:00 04:00 04:00 WBC 3.9 L RBC 3.39 L Hgb 11.0 L Hct 33.8 L MCV 99.8 H MCH 32.5 H MCHC 32.6 L RDW 17.5 H Plt Count 76 L PT 14.5 H INR 1.39 H APTT 33.4 H Sodium 135 Potassium 4.2 Chloride 94 L Carbon Dioxide 28 Anion Gap 17 BUN 35 H Creatinine 4.7 H Est GFR ( Amer) 15 Est GFR (Non-Af Amer) 12 Random Glucose 92 Calcium 8.6 Total Bilirubin 2.7 H AST 30 ALT 20 L Alkaline Phosphatase 119 Total Protein 7.9 Albumin 3.7 Globulin 4.2 H Albumin/Globulin Ratio 0.9 L Assessment & Plan - Assessment and Plan (Free Text) Assessment: 81 y/o M with PMHx of CKD on HD, s/p fall and small stable subdural hematoma, admitted to TCU for PT eval and treatment, now with new onset of cough, and wheezing. Plan: Cough, and white sputum -Afebrile, no leukocytosis -Diffuse Wheezes, rhonchi, and crackles in right lower lung -F/U chest x ray results -Azithromycin PO daily -Duoneb neb 1 stat and then continue with Q 12 and re-assess tomorrow Unsteady gait -Physical therapy eval and treatment -C/W fall precautions Subdural Hematoma -Stable -Secondary to Head injury after fall -Last repeated CT head w/o contrast showed similar finding seen in previous CT scan -Patient is cleared by neurology to go to TCU for rehab -EEG findings are consistent with cerebral dysfunction -no antiplatelet meds for 4-6 weeks 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 Cain/Dr. Vazquez on board. c/w HD W -Sevelamer 800 mg PO BID Atypical left chest pain most likely musculoskeletal etiology -Still present, most likely 2/2 fall -Troponin I x 2 neg -EKG showed similar previous findings, no acute changes. -C-xray Ribs: negative for fractures. Essential Hypertension c/w home med. Carvedilol 3.125 mg PO heart healthy diet Benign prostatic hyperplasia c/w home Tamsulosin 0.4 mg daily PO DVT Prophylaxis DVT - SCDs for now due to low platelet - Date & Time Date: 09/15/16 Time: 09:30 <Jason Brand - Last Filed: 09/16/16 06:48> Results - Vital Signs Recent Vital Signs: Last Vital Signs Temp 98.1 F 09/15/16 20:41 Pulse 72 09/15/16 20:41 Resp 20 09/15/16 20:41 BP 117/81 09/15/16 20:41 Pulse Ox 95 09/15/16 20:41 - Labs Result Diagrams: 09/15/16 04:00 09/15/16 04:00 Attending/Attestation - Attestation I have personally seen and examined this patient.: Yes I have fully participated in the care of the patient.: Yes I have reviewed all pertinent clinical information: Yes
[2016-09-15] MEDS: Sevelamer Carb 0.8 gm/Packet PO SCH ×2 (13:10→17:39)
[2016-09-15] MEDS: Multivitamin Vitamin B Complex (Nephro-Vite) Tab PO SCH (13:10)
[2016-09-15] MEDS ORDERED: Albuterol-Ipratrop 3 mg / 0.5 (3 ml) UD INH STA (14:47)
[2016-09-15] MEDS ORDERED: Albuterol 0.083% Inhal Sol (2.5 mg/3 mL) UD INH PRN (18:08)
--- NOTE | 2016-09-15 19:24 | CP.PCM.PN ---
Subjective - Date & Time of Evaluation Date of Evaluation: 09/15/16 Time of Evaluation: 15:00 - Subjective Subjective: SEEN ON RENAL F/U .. RECIEVED HD TODAY AT [facility] FEELS BETTER ALL LABE AND EMR REVIEWED Objective - Vital Signs/Intake and Output Vital Signs (last 24 hours): Temp Pulse Resp BP Pulse Ox 97.5 F L 68 20 124/71 96 09/15/16 16:48 09/15/16 16:48 09/15/16 16:48 09/15/16 16:48 09/15/16 16:48 - Medications Medications: Current Medications Acetaminophen (Tylenol 325mg Tab) 650 mg PO Q6 PRN PRN Reason: Pain, moderate (4-7) Last Admin: 09/15/16 13:14 Dose: 650 mg Albuterol Sulfate (Albuterol 0.083% Inhal Faina (2.5 Mg/3 Ml) Ud) 2.5 mg INH RQ6 PRN PRN Reason: Shortness of Breath Albuterol/Ipratropium (Duoneb 3 Mg/0.5 Mg (3 Ml) Ud) 3 ml INH BID [facility] Ascorbic Acid (Vitamin C 500 Mg Tab) 500 mg PO DAILY [facility] Last Admin: 09/15/16 13:10 Dose: 500 mg Azithromycin (Zithromax) 250 mg PO DAILY [facility] Last Admin: 09/15/16 16:39 Dose: 250 mg Benzonatate (Tessalon Perles) 100 mg PO TID PRN PRN Reason: Cough Calamine (Calamine Lotion) 1 applic TOP BID PRN PRN Reason: Itching / Pruritus Carvedilol (Coreg) 3.125 mg PO SUTUTHSA@0900,2100 [facility] Last Admin: 09/14/16 21:17 Dose: 3.125 mg Duloxetine HCl (Cymbalta) 30 mg PO QAM [facility] Last Admin: 09/15/16 13:10 Dose: 30 mg Ergocalciferol (Drisdol 50,000 Intl Units Cap) 1 cap PO Q7D [facility] Sevelamer Carbonate (Renvela) 0.8 gm PO BID [facility] Last Admin: 09/15/16 17:39 Dose: 0.8 gm Tamsulosin HCl (Flomax) 0.4 mg PO QPM [facility] Last Admin: 09/15/16 17:39 Dose: 0.4 mg Vitamin B Complex/Vit C/Folic Acid (Nephro-Faraz) 1 tab PO DAILY [facility] Last Admin: 09/15/16 13:10 Dose: 1 tab - Labs Labs: 09/15/16 04:00 09/15/16 04:00 PT 14.5 SECONDS (9.6-11.2) H 09/15/16 04:00 INR 1.39 (0.92-1.08) H 09/15/16 04:00 APTT 33.4 SECONDS (23.3-32.5) H 09/15/16 04:00 Assessment and Plan - Assessment and Plan (Free Text) Assessment: ESRD ON HD M W F ANEMIA OF CKD .. H/H STABLE Plan: ESRD ON HD M W F C/O CURRENT CARE
[2016-09-16] MEDS ORDERED: Ergocalciferol 50,000 Intl Units Cap PO SCH (00:01)
[2016-09-16] MEDS: Albuterol-Ipratrop 3 mg / 0.5 (3 ml) UD INH SCH ×5 (07:40→20:36)
[2016-09-16] MEDS: Ergocalciferol 50,000 Intl Units Cap PO SCH (09:05)
[2016-09-16] MEDS: Sevelamer Carb 0.8 gm/Packet PO SCH ×2 (09:06→17:07)
[2016-09-16] MEDS: Multivitamin Vitamin B Complex (Nephro-Vite) Tab PO SCH (09:06)
--- NOTE | 2016-09-16 09:56 | CP.PCM.PN ---
<AfiaBessie - Last Filed: 09/16/16 09:54> Subjective - Date & Time of Evaluation Date of Evaluation: 09/16/16 Time of Evaluation: 07:05 - Subjective Subjective: Patient was seen and examined at bedside this morning. Patient was alert, awake and oriented X 3. Patient still coughing with associated white sputum with streak of blood in it. Still complaining of left sided costal pain in upper and lower chest, that gets worse with breathing. Denies chills, SOB, nausea, vomiting, abdominal pain. Objective - Vital Signs/Intake and Output Vital Signs (last 24 hours): Temp Pulse Resp BP Pulse Ox 96.8 F L 79 20 148/96 H 100 09/16/16 09:09 09/16/16 09:04 09/16/16 08:23 09/16/16 09:04 09/16/16 08:23 - Medications Medications: Current Medications Acetaminophen (Tylenol 325mg Tab) 650 mg PO Q6 PRN PRN Reason: Pain, moderate (4-7) Last Admin: 09/16/16 09:09 Dose: 650 mg Albuterol Sulfate (Albuterol 0.083% Inhal Faina (2.5 Mg/3 Ml) Ud) 2.5 mg INH RQ6 PRN PRN Reason: Shortness of Breath Albuterol/Ipratropium (Duoneb 3 Mg/0.5 Mg (3 Ml) Ud) 3 ml INH BID [facility] Last Admin: 09/16/16 07:40 Dose: 3 ml Ascorbic Acid (Vitamin C 500 Mg Tab) 500 mg PO DAILY [facility] Last Admin: 09/16/16 09:06 Dose: 500 mg Azithromycin (Zithromax) 250 mg PO DAILY [facility] Last Admin: 09/16/16 09:06 Dose: 250 mg Benzonatate (Tessalon Perles) 100 mg PO TID PRN PRN Reason: Cough Last Admin: 09/16/16 09:09 Dose: 100 mg Calamine (Calamine Lotion) 1 applic TOP BID PRN PRN Reason: Itching / Pruritus Carvedilol (Coreg) 3.125 mg PO SUTUTHSA@0900,2100 [facility] Last Admin: 09/16/16 09:04 Dose: 3.125 mg Duloxetine HCl (Cymbalta) 30 mg PO QAM [facility] Last Admin: 09/16/16 09:05 Dose: 30 mg Ergocalciferol (Drisdol 50,000 Intl Units Cap) 1 cap PO TUE [facility] Last Admin: 09/16/16 09:05 Dose: 1 cap Sevelamer Carbonate (Renvela) 0.8 gm PO BID [facility] Last Admin: 09/16/16 09:06 Dose: 0.8 gm Tamsulosin HCl (Flomax) 0.4 mg PO QPM [facility] Last Admin: 09/15/16 17:39 Dose: 0.4 mg Vitamin B Complex/Vit C/Folic Acid (Nephro-Faraz) 1 tab PO DAILY [facility] Last Admin: 09/16/16 09:06 Dose: 1 tab - Labs Labs: 09/15/16 04:00 09/15/16 04:00 PT 14.5 SECONDS (9.6-11.2) H 09/15/16 04:00 INR 1.39 (0.92-1.08) H 09/15/16 04:00 APTT 33.4 SECONDS (23.3-32.5) H 09/15/16 04:00 - Constitutional Appears: Non-toxic, No Acute Distress - ENT Exam ENT Exam: Mucous Membranes Moist - Respiratory Exam Respiratory Exam: Chest Wall Tenderness (tender to plapation of left upper/ lower chest), Rhonchi (disffuse and bilateral), NORMAL BREATHING PATTERN. absent: Rales, Wheezes - Cardiovascular Exam Cardiovascular Exam: REGULAR RHYTHM, +S1, +S2 - GI/Abdominal Exam GI & Abdominal Exam: Soft, Normal Bowel Sounds. absent: Guarding, Rigid, Tenderness Additional comments: Protuberant - Extremities Exam Extremities Exam: Normal Inspection. absent: Calf Tenderness, Pedal Edema Additional comments: AV fistula in left arm, with continuos bruit and thrill - Neurological Exam Neurological Exam: Alert, Awake, Oriented x3 - Skin Skin Exam: Dry, Intact, Normal Color Assessment and Plan - Assessment and Plan (Free Text) Assessment: 81 y/o M with PMHx of CKD on HD, s/p fall and small stable subdural hematoma, admitted to TCU for PT eval and treatment, now with new onset of cough, and rhonchi. 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 Cain/Dr. Vazquez on board. c/w HD M W F -Sevelamer 800 mg PO BID Atypical left chest pain most likely musculoskeletal etiology -Still present, most likely 2/2 fall -Troponin I x 2 neg -EKG showed similar previous findings, no acute changes. -C-xray Ribs: negative for fractures. F/U chest x ray results -Tylenol 650 mg Q8 RAÚL for pain Essential Hypertension c/w home med. Carvedilol 3.125 mg PO heart healthy diet Benign prostatic hyperplasia c/w home Tamsulosin 0.4 mg daily PO DVT Prophylaxis DVT - SCDs for now due to low platelet <Jason Brand - Last Filed: 09/18/16 06:55> Objective - Vital Signs/Intake and Output Vital Signs (last 24 hours): Temp Pulse Resp BP Pulse Ox 96.3 F L 76 20 140/80 98 09/17/16 21:15 09/17/16 21:15 09/17/16 21:15 09/17/16 21:15 09/17/16 21:15 - Medications Medications: Current Medications Acetaminophen (Tylenol 325mg Tab) 650 mg PO Q6 PRN PRN Reason: Pain, moderate (4-7) Last Admin: 09/17/16 14:00 Dose: 650 mg Acetylcysteine (Mucomyst 10% 4ml) 2 ml IH RBID [facility] Last Admin: 09/17/16 19:28 Dose: 2 ml Albuterol Sulfate (Albuterol 0.083% Inhal Faina (2.5 Mg/3 Ml) Ud) 2.5 mg INH BID [facility] Last Admin: 09/17/16 19:28 Dose: 2.5 mg Albuterol Sulfate (Albuterol 0.083% Inhal Faina (2.5 Mg/3 Ml) Ud) 2.5 mg INH RQ4 PRN PRN Reason: Shortness of Breath Ascorbic Acid (Vitamin C 500 Mg Tab) 500 mg PO DAILY [facility] Last Admin: 09/17/16 11:01 Dose: 500 mg Azithromycin (Zithromax) 250 mg PO DAILY [facility] Last Admin: 09/17/16 10:59 Dose: 250 mg Benzonatate (Tessalon Perles) 100 mg PO TID PRN PRN Reason: Cough Last Admin: 09/16/16 09:09 Dose: 100 mg Calamine (Calamine Lotion) 1 applic TOP BID PRN PRN Reason: Itching / Pruritus Carvedilol (Coreg) 3.125 mg PO SUTUTHSA@0900,2100 [facility] Last Admin: 09/16/16 21:02 Dose: 3.125 mg Duloxetine HCl (Cymbalta) 30 mg PO QAM [facility] Last Admin: 09/17/16 11:00 Dose: 30 mg Ergocalciferol (Drisdol 50,000 Intl Units Cap) 1 cap PO TUE [facility] Last Admin: 09/16/16 09:05 Dose: 1 cap Lidocaine (Lidoderm) 1 ea TD DAILY [facility] Last Admin: 09/17/16 12:30 Dose: 1 ea Sevelamer Carbonate (Renvela) 0.8 gm PO BID [facility] Last Admin: 09/17/16 17:27 Dose: 0.8 gm Tamsulosin HCl (Flomax) 0.4 mg PO QPM [facility] Last Admin: 09/17/16 18:52 Dose: 0.4 mg Vitamin B Complex/Vit C/Folic Acid (Nephro-Faraz) 1 tab PO DAILY [facility] Last Admin: 09/17/16 11:02 Dose: 1 tab - Labs Labs: 09/17/16 11:10 09/17/16 11:10 PT 14.5 SECONDS (9.6-11.2) H 09/15/16 04:00 INR 1.39 (0.92-1.08) H 09/15/16 04:00 APTT 33.4 SECONDS (23.3-32.5) H 09/15/16 04:00 Attending/Attestation - Attestation I have personally seen and examined this patient.: Yes I have fully participated in the care of the patient.: Yes I have reviewed all pertinent clinical information, including history, physical exam and plan: Yes
--- NOTE | 2016-09-16 14:31 | RAD ---
HISTORY: Crackles, wheezing and rhonchi COMPARISON: Chest radiograph dated 09/12/2016. Comparison also made with CT scan chest dated 01/04/2008 and and chest radiograph dated 12/21/2007 TECHNIQUE: Chest PA and lateral FINDINGS: LUNGS: Left basilar consolidation could represent atelectasis new since prior chest radiograph 09/12/2016. There is also suspect small left-sided effusion as well. . Minor right basilar atelectasis. Suspect tiny right-sided effusion as well PLEURA: No significant pleural effusion identified. No pneumothorax apparent. CARDIOVASCULAR: Heart remains enlarged. Aorta is ectatic uncoiled. The ascending thoracic aorta appears slightly more ectatic and larger when compared prior CT scan of the chest 01/04/2008 and chest x-ray 12/21/2007. Followup nonemergent CT scan of the chest could be performed to of further evaluate the ascending aorta for aneurysmal dilatation. OSSEOUS STRUCTURES: No significant abnormalities. VISUALIZED UPPER ABDOMEN: Small right-sided Normal. OTHER FINDINGS: None. IMPRESSION: Left basilar consolidation could represent atelectasis new since prior chest radiograph 09/12/2016. . Suspect small left-sided effusion as well. . Minor right basilar atelectasis. Heart remains enlarged. Aorta is ectatic uncoiled. The ascending thoracic aorta appears slightly more ectatic and larger when compared prior CT scan of the chest 01/04/2008 and chest x-ray 12/21/2007. Followup nonemergent CT scan of the chest could be performed to of further evaluate the ascending aorta for aneurysmal dilatation.
[2016-09-16 17:15] VITALS: RESP 20
--- NOTE | 2016-09-16 22:01 | CP.PCM.PN ---
Subjective - Date & Time of Evaluation Date of Evaluation: 09/16/16 Time of Evaluation: 15:00 - Subjective Subjective: SEEN ON RENAL F/U FELS IMPROVED GETTING HD ON W AT [facility] ALL LABS AND MEDS REVIEWED Objective - Vital Signs/Intake and Output Vital Signs (last 24 hours): Temp Pulse Resp BP Pulse Ox 97.3 F L 67 20 123/72 97 09/16/16 21:10 09/16/16 21:10 09/16/16 21:10 09/16/16 21:10 09/16/16 21:10 - Medications Medications: Current Medications Acetaminophen (Tylenol 325mg Tab) 650 mg PO Q6 PRN PRN Reason: Pain, moderate (4-7) Last Admin: 09/16/16 09:09 Dose: 650 mg Albuterol Sulfate (Albuterol 0.083% Inhal Faina (2.5 Mg/3 Ml) Ud) 2.5 mg INH RQ6 PRN PRN Reason: Shortness of Breath Albuterol/Ipratropium (Duoneb 3 Mg/0.5 Mg (3 Ml) Ud) 3 ml INH RTID [facility] Last Admin: 09/16/16 20:36 Dose: Not Given Ascorbic Acid (Vitamin C 500 Mg Tab) 500 mg PO DAILY [facility] Last Admin: 09/16/16 09:06 Dose: 500 mg Azithromycin (Zithromax) 250 mg PO DAILY [facility] Last Admin: 09/16/16 09:06 Dose: 250 mg Benzonatate (Tessalon Perles) 100 mg PO TID PRN PRN Reason: Cough Last Admin: 09/16/16 09:09 Dose: 100 mg Calamine (Calamine Lotion) 1 applic TOP BID PRN PRN Reason: Itching / Pruritus Carvedilol (Coreg) 3.125 mg PO SUTUTHSA@0900,2100 [facility] Last Admin: 09/16/16 21:02 Dose: 3.125 mg Duloxetine HCl (Cymbalta) 30 mg PO QAM [facility] Last Admin: 09/16/16 09:05 Dose: 30 mg Ergocalciferol (Drisdol 50,000 Intl Units Cap) 1 cap PO TUE [facility] Last Admin: 09/16/16 09:05 Dose: 1 cap Sevelamer Carbonate (Renvela) 0.8 gm PO BID [facility] Last Admin: 09/16/16 17:07 Dose: 0.8 gm Tamsulosin HCl (Flomax) 0.4 mg PO QPM [facility] Last Admin: 09/16/16 17:07 Dose: 0.4 mg Vitamin B Complex/Vit C/Folic Acid (Nephro-Faraz) 1 tab PO DAILY [facility] Last Admin: 09/16/16 09:06 Dose: 1 tab - Labs Labs: 09/15/16 04:00 09/15/16 04:00 PT 14.5 SECONDS (9.6-11.2) H 09/15/16 04:00 INR 1.39 (0.92-1.08) H 09/15/16 04:00 APTT 33.4 SECONDS (23.3-32.5) H 09/15/16 04:00 Assessment and Plan - Assessment and Plan (Free Text) Assessment: ESRD ON HD M W F .. C/O CURRENT CARE
[2016-09-17] MEDS: Albuterol-Ipratrop 3 mg / 0.5 (3 ml) UD INH SCH (08:15)
[2016-09-17] MEDS: Sevelamer Carb 0.8 gm/Packet PO SCH ×3 (09:40→17:27)
[2016-09-17] MEDS: Multivitamin Vitamin B Complex (Nephro-Vite) Tab PO SCH ×2 (09:40→11:02)
--- NOTE | 2016-09-17 11:11 | CP.PCM.CON ---
History of Present Illness - History of Present Illness History of Present Illness: 81 year old male with ESRD-DD had a fall with subdural hematoma, found to have left basal atelectasis likely secondary to impacted mucoid secretions. Has chest wall pain on the left side which may also be from trauma related to his falling and has apparent splinting of the left thorax because of it. He denies any prior history of pneumonia, asthma or tuberculosis. No childhood respiratory disease. He is a never smoker as well. Past Patient History - Past Medical History & Family History Past Medical History?: Yes - Past Social History Smoking Status: Never Smoked Chewing Tobacco Use: No Cigar Use: No Alcohol: None Drugs: Denies - CARDIAC Hx Hypertension: Yes - PULMONARY Hx Respiratory Disorders: No - NEUROLOGICAL Hx Transient Ischemic Attacks (TIA): Yes - HEENT Hx Cataracts: Yes - RENAL Hx Dialysis: Yes Date of Last Dialysis Treatment: 09/14/16 Hx Renal Failure: Yes - ENDOCRINE/METABOLIC Hx Endocrine Disorders: No - HEMATOLOGICAL/ONCOLOGICAL Hx Blood Disorders: No - INTEGUMENTARY Hx Dermatological Problems: No - MUSCULOSKELETAL/RHEUMATOLOGICAL Hx Falls: Yes - GASTROINTESTINAL Hx Gastroesophageal Reflux: Yes Other/Comment: Bilateral inguinal hernias - GENITOURINARY/GYNECOLOGICAL Hx Prostate Problems: Yes Other/Comment: Turp in past - PSYCHIATRIC Hx Substance Use: No - SURGICAL HISTORY Hx Surgeries: Yes (Left arm AV shunt) Other/Comment: TUR-P many years ago. Cataract Sx - ANESTHESIA Hx Anesthesia: Yes Hx Anesthesia Reactions: No (None Known) Meds Allergies/Adverse Reactions: Allergies Allergy/AdvReac Type Severity Reaction Status Date / Time cortisone Allergy Mild hicups Verified 09/14/16 17:27 - Medications Medications: Current Medications Acetaminophen (Tylenol 325mg Tab) 650 mg PO Q6 PRN PRN Reason: Pain, moderate (4-7) Last Admin: 09/16/16 09:09 Dose: 650 mg Albuterol Sulfate (Albuterol 0.083% Inhal Faina (2.5 Mg/3 Ml) Ud) 2.5 mg INH RQ6 PRN PRN Reason: Shortness of Breath Albuterol/Ipratropium (Duoneb 3 Mg/0.5 Mg (3 Ml) Ud) 3 ml INH RTID [facility] Last Admin: 09/17/16 08:15 Dose: Not Given Ascorbic Acid (Vitamin C 500 Mg Tab) 500 mg PO DAILY [facility] Last Admin: 09/17/16 11:01 Dose: 500 mg Azithromycin (Zithromax) 250 mg PO DAILY [facility] Last Admin: 09/17/16 10:59 Dose: 250 mg Benzonatate (Tessalon Perles) 100 mg PO TID PRN PRN Reason: Cough Last Admin: 09/16/16 09:09 Dose: 100 mg Calamine (Calamine Lotion) 1 applic TOP BID PRN PRN Reason: Itching / Pruritus Carvedilol (Coreg) 3.125 mg PO SUTUTHSA@0900,2100 [facility] Last Admin: 09/16/16 21:02 Dose: 3.125 mg Duloxetine HCl (Cymbalta) 30 mg PO QAM [facility] Last Admin: 09/17/16 11:00 Dose: 30 mg Ergocalciferol (Drisdol 50,000 Intl Units Cap) 1 cap PO TUE [facility] Last Admin: 09/16/16 09:05 Dose: 1 cap Sevelamer Carbonate (Renvela) 0.8 gm PO BID [facility] Last Admin: 09/17/16 11:02 Dose: 0.8 gm Tamsulosin HCl (Flomax) 0.4 mg PO QPM [facility] Last Admin: 09/16/16 17:07 Dose: 0.4 mg Vitamin B Complex/Vit C/Folic Acid (Nephro-Faraz) 1 tab PO DAILY [facility] Last Admin: 09/17/16 11:02 Dose: 1 tab Physical Exam - Additional Findings Additional findings: Seated in [facility]. Not acutely dyspneic at rest. Cooperative with the exam. No palpable lymphadenopathy. Neck is supple and trachea midline. Dullness to percussion in the left lung base posteriorly. ++ tenderness on palpation left anterior chest wall. No ecchymosis. No rib crunch. Breath sounds are diminished bilaterally, absent at the left base. No audible wheezing appreciated. Scattered sonorous rhonchi in LL's. Heart sounds are distant, +systolic murmur at the base. No dependant edema or cyanosis. Results - Vital Signs Recent Vital Signs: Last Vital Signs Temp 97.3 F L 09/16/16 21:10 Pulse 67 09/16/16 21:10 Resp 20 09/16/16 21:10 BP 123/72 09/16/16 21:10 Pulse Ox 97 09/16/16 21:10 - Labs Result Diagrams: 09/23/16 06:57 09/23/16 06:57 Assessment & Plan (1) Atelectasis Status: Acute Priority: High (2) Musculoskeletal chest pain Status: Acute Priority: High - Assessment and Plan (Free Text) Plan: Continue incentive spirometry. Acetylcysteine aerosol therapy BID. Analgesia locally with topical lidocaine patch. Will need CT chest w/o contrast. - Date & Time Date: 09/17/16 Time: 11:09
[2016-09-17] MEDS ORDERED: Albuterol 0.083% Inhal Sol (2.5 mg/3 mL) UD INH PRN (11:14)
[2016-09-17 11:20] LABS: HEMATOCRIT 31.8 % (35.0-51.0); MEAN CORPUSCULAR HEMOGLOBIN 32.6 pg (27.0-31.0); MEAN CORPUSCULAR HGB CONC 32.6 g/dL (33.0-37.0); RED CELL DISTRIBUTION WIDTH 17.1 % (11.5-14.5); WHITE BLOOD COUNT 3.2 K/uL (4.8-10.8)
[2016-09-17 11:44] LABS: CALCIUM 8.8 mg/dL (8.4-10.2); POTASSIUM 3.6 MMOL/L (3.6-5.0)
[2016-09-17] MEDS: Lidocaine 5% Patch TD SCH (12:30)
--- NOTE | 2016-09-17 14:26 | CP.PCM.PN ---
<Ricky Oreillyth - Last Filed: 09/17/16 14:39> Subjective - Date & Time of Evaluation Date of Evaluation: 09/17/16 Time of Evaluation: 11:00 - Subjective Subjective: Patient was seen and examined in TCU this morning after HD. Patient is still complaining of cough associated with white/yellowish sputum production. Still complaining of left chest wall pain, reproduced with palpation. Denies SOB, nausea, vomiting, abdominal pain, diarrhea. Patient had an uneventful night. Objective - Vital Signs/Intake and Output Vital Signs (last 24 hours): Temp Pulse Resp BP Pulse Ox 97.3 F L 67 20 123/72 97 09/16/16 21:10 09/16/16 21:10 09/16/16 21:10 09/16/16 21:10 09/16/16 21:10 - Medications Medications: Current Medications Acetaminophen (Tylenol 325mg Tab) 650 mg PO Q6 PRN PRN Reason: Pain, moderate (4-7) Last Admin: 09/17/16 14:00 Dose: 650 mg Acetylcysteine (Mucomyst 10% 4ml) 2 ml IH RBID [facility] Albuterol Sulfate (Albuterol 0.083% Inhal Faina (2.5 Mg/3 Ml) Ud) 2.5 mg INH BID [facility] Albuterol Sulfate (Albuterol 0.083% Inhal Faina (2.5 Mg/3 Ml) Ud) 2.5 mg INH RQ4 PRN PRN Reason: Shortness of Breath Ascorbic Acid (Vitamin C 500 Mg Tab) 500 mg PO DAILY [facility] Last Admin: 09/17/16 11:01 Dose: 500 mg Azithromycin (Zithromax) 250 mg PO DAILY [facility] Last Admin: 09/17/16 10:59 Dose: 250 mg Benzonatate (Tessalon Perles) 100 mg PO TID PRN PRN Reason: Cough Last Admin: 09/16/16 09:09 Dose: 100 mg Calamine (Calamine Lotion) 1 applic TOP BID PRN PRN Reason: Itching / Pruritus Carvedilol (Coreg) 3.125 mg PO SUTUTHSA@0900,2100 [facility] Last Admin: 09/16/16 21:02 Dose: 3.125 mg Duloxetine HCl (Cymbalta) 30 mg PO QAM [facility] Last Admin: 09/17/16 11:00 Dose: 30 mg Ergocalciferol (Drisdol 50,000 Intl Units Cap) 1 cap PO TUE [facility] Last Admin: 09/16/16 09:05 Dose: 1 cap Lidocaine (Lidoderm) 1 ea TD DAILY [facility] Last Admin: 09/17/16 12:30 Dose: 1 ea Sevelamer Carbonate (Renvela) 0.8 gm PO BID [facility] Last Admin: 09/17/16 11:02 Dose: 0.8 gm Tamsulosin HCl (Flomax) 0.4 mg PO QPM [facility] Last Admin: 09/16/16 17:07 Dose: 0.4 mg Vitamin B Complex/Vit C/Folic Acid (Nephro-Faraz) 1 tab PO DAILY [facility] Last Admin: 09/17/16 11:02 Dose: 1 tab - Labs Labs: 09/17/16 11:10 09/17/16 11:10 PT 14.5 SECONDS (9.6-11.2) H 09/15/16 04:00 INR 1.39 (0.92-1.08) H 09/15/16 04:00 APTT 33.4 SECONDS (23.3-32.5) H 09/15/16 04:00 - Additional Findings Additional findings: Constitutional Appears: Non-toxic, No Acute Distress - ENT Exam ENT Exam: Mucous Membranes Moist - Respiratory Exam Respiratory Exam: Chest Wall Tenderness (tender to palpation of left upper/ lower chest), clear lung to auscultation bilateral, NORMAL BREATHING PATTERN. absent: Rales, Wheezes, Rhonchi - Cardiovascular Exam Cardiovascular Exam: REGULAR RHYTHM, +S1, +S2, murmur - GI/Abdominal Exam GI & Abdominal Exam: Soft, Normal Bowel Sounds. absent: Guarding, Rigid, Tenderness Additional comments: Protuberant - Extremities Exam Extremities Exam: Normal Inspection. absent: Calf Tenderness, Pedal Edema Additional comments: AV fistula in left arm, with continuos bruit and thrill - Neurological Exam Neurological Exam: Alert, Awake, Oriented x3 - Skin Skin Exam: Dry, Intact, Normal Color Assessment and Plan - Assessment and Plan (Free Text) Assessment: 81 y/o M with PMHx of CKD on HD, s/p fall and small stable subdural hematoma, admitted to TCU for PT eval and treatment, now with new onset of productive cough, improving. Plan: Cough, and white sputum -Afebrile, no leukocytosis -Improving clinically -chest x ray showed left basilar consolidation that could represent atelectasis new since previous exam -c/w Azithromycin PO daily for 5 more days -Decreased frequency of Duoneb neb Q12 hours -Respiratory therapy -Insentive spirometer -Pulmunology consult appreciated. Dr. 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 Cain/Dr. Vazquez on board. c/w HD M W F -Sevelamer 800 mg PO BID Atypical left chest pain most likely musculoskeletal etiology -Still present, most likely 2/2 fall -Troponin I x 2 neg -EKG showed similar previous findings, no acute changes. -C-xray Ribs: negative for fractures. F/U chest x ray results -Tylenol 650 mg Q8 RAÚL for pain Essential Hypertension c/w home med. Carvedilol 3.125 mg PO heart healthy diet Benign prostatic hyperplasia c/w home Tamsulosin 0.4 mg daily PO DVT Prophylaxis DVT - SCDs for now due to low platelet <Delmar Ayers - Last Filed: 09/24/16 06:49> Objective - Vital Signs/Intake and Output Vital Signs (last 24 hours): Temp Pulse Resp BP Pulse Ox 96 F L 68 20 124/72 98 09/23/16 20:30 09/23/16 21:37 09/23/16 20:30 09/23/16 21:37 09/23/16 20:30 - Medications Medications: Current Medications Acetaminophen (Tylenol 325mg Tab) 650 mg PO Q6 PRN PRN Reason: Pain, moderate (4-7) Last Admin: 09/22/16 05:12 Dose: 650 mg Acetylcysteine (Mucomyst 10% 4ml) 2 ml IH RBID [facility] Last Admin: 09/23/16 20:34 Dose: 2 ml Albuterol Sulfate (Albuterol 0.083% Inhal Faina (2.5 Mg/3 Ml) Ud) 2.5 mg INH RQ4 PRN PRN Reason: Shortness of Breath Albuterol Sulfate (Albuterol 0.083% Inhal Faina (2.5 Mg/3 Ml) Ud) 2.5 mg INH RBID [facility] Last Admin: 09/23/16 20:34 Dose: 2.5 mg Ascorbic Acid (Vitamin C 500 Mg Tab) 500 mg PO DAILY [facility] Last Admin: 09/23/16 08:55 Dose: 500 mg Azithromycin (Zithromax) 250 mg PO DAILY [facility] Last Admin: 09/23/16 11:10 Dose: 250 mg Benzonatate (Tessalon Perles) 100 mg PO TID PRN PRN Reason: Cough Last Admin: 09/23/16 04:45 Dose: 100 mg Calamine (Calamine Lotion) 1 applic TOP BID PRN PRN Reason: Itching / Pruritus Carvedilol (Coreg) 3.125 mg PO SUTUTHSA@0900,2100 [facility] Last Admin: 09/23/16 21:37 Dose: 3.125 mg Duloxetine HCl (Cymbalta) 30 mg PO QAM [facility] Last Admin: 09/23/16 08:55 Dose: 30 mg Ergocalciferol (Drisdol 50,000 Intl Units Cap) 1 cap PO TUE [facility] Last Admin: 09/23/16 08:55 Dose: 1 cap Lidocaine (Lidoderm) 1 ea TD DAILY [facility] Last Admin: 09/23/16 08:55 Dose: 1 ea Sevelamer Carbonate (Renvela) 0.8 gm PO BID [facility] Last Admin: 09/23/16 17:05 Dose: 0.8 gm Tamsulosin HCl (Flomax) 0.4 mg PO QPM [facility] Last Admin: 09/23/16 17:05 Dose: 0.4 mg Vitamin B Complex/Vit C/Folic Acid (Nephro-Faraz) 1 tab PO DAILY [facility] Last Admin: 09/23/16 08:54 Dose: 1 tab - Labs Labs: 09/24/16 05:24 09/24/16 05:24 PT 14.1 SECONDS (9.6-11.2) H 09/23/16 06:57 INR 1.36 (0.92-1.08) H 09/23/16 06:57 APTT 33.4 SECONDS (23.3-32.5) H 09/15/16 04:00 Attending/Attestation - Attestation I have personally seen and examined this patient.: Yes I have fully participated in the care of the patient.: Yes I have reviewed all pertinent clinical information, including history, physical exam and plan: Yes
[2016-09-17] MEDS: Albuterol 0.083% Inhal Sol (2.5 mg/3 mL) UD INH SCH (19:28)
[2016-09-17] MEDS: Acetylcysteine 10% 4 ML IH SCH (19:28)
--- NOTE | 2016-09-18 00:24 | CP.PCM.PN ---
Subjective - Date & Time of Evaluation Date of Evaluation: 09/17/16 Time of Evaluation: 13:00 - Subjective Subjective: SEEN ON RENAL F/U FEELS IMPROVED ON HD AT [facility] Objective - Vital Signs/Intake and Output Vital Signs (last 24 hours): Temp Pulse Resp BP Pulse Ox 96.3 F L 76 20 140/80 98 09/17/16 21:15 09/17/16 21:15 09/17/16 21:15 09/17/16 21:15 09/17/16 21:15 - Medications Medications: Current Medications Acetaminophen (Tylenol 325mg Tab) 650 mg PO Q6 PRN PRN Reason: Pain, moderate (4-7) Last Admin: 09/17/16 14:00 Dose: 650 mg Acetylcysteine (Mucomyst 10% 4ml) 2 ml IH RBID [facility] Last Admin: 09/17/16 19:28 Dose: 2 ml Albuterol Sulfate (Albuterol 0.083% Inhal Faina (2.5 Mg/3 Ml) Ud) 2.5 mg INH BID [facility] Last Admin: 09/17/16 19:28 Dose: 2.5 mg Albuterol Sulfate (Albuterol 0.083% Inhal Faina (2.5 Mg/3 Ml) Ud) 2.5 mg INH RQ4 PRN PRN Reason: Shortness of Breath Ascorbic Acid (Vitamin C 500 Mg Tab) 500 mg PO DAILY [facility] Last Admin: 09/17/16 11:01 Dose: 500 mg Azithromycin (Zithromax) 250 mg PO DAILY [facility] Last Admin: 09/17/16 10:59 Dose: 250 mg Benzonatate (Tessalon Perles) 100 mg PO TID PRN PRN Reason: Cough Last Admin: 09/16/16 09:09 Dose: 100 mg Calamine (Calamine Lotion) 1 applic TOP BID PRN PRN Reason: Itching / Pruritus Carvedilol (Coreg) 3.125 mg PO SUTUTHSA@0900,2100 [facility] Last Admin: 09/16/16 21:02 Dose: 3.125 mg Duloxetine HCl (Cymbalta) 30 mg PO QAM [facility] Last Admin: 09/17/16 11:00 Dose: 30 mg Ergocalciferol (Drisdol 50,000 Intl Units Cap) 1 cap PO TUE [facility] Last Admin: 09/16/16 09:05 Dose: 1 cap Lidocaine (Lidoderm) 1 ea TD DAILY [facility] Last Admin: 09/17/16 12:30 Dose: 1 ea Sevelamer Carbonate (Renvela) 0.8 gm PO BID [facility] Last Admin: 09/17/16 17:27 Dose: 0.8 gm Tamsulosin HCl (Flomax) 0.4 mg PO QPM [facility] Last Admin: 09/17/16 18:52 Dose: 0.4 mg Vitamin B Complex/Vit C/Folic Acid (Nephro-Faraz) 1 tab PO DAILY [facility] Last Admin: 09/17/16 11:02 Dose: 1 tab - Labs Labs: 09/17/16 11:10 09/17/16 11:10 PT 14.5 SECONDS (9.6-11.2) H 09/15/16 04:00 INR 1.39 (0.92-1.08) H 09/15/16 04:00 APTT 33.4 SECONDS (23.3-32.5) H 09/15/16 04:00 Assessment and Plan - Assessment and Plan (Free Text) Assessment: ESRD ON HD M W F MULTIPLE CO MORBIDITIES P : C/O CURRENT CARE
[2016-09-18 07:11] LABS: HEMATOCRIT 32.6 % (35.0-51.0); MEAN CELL VOLUME 99.7 fl (80.0-94.0); MEAN CORPUSCULAR HEMOGLOBIN 32.3 pg (27.0-31.0); MEAN CORPUSCULAR HGB CONC 32.4 g/dL (33.0-37.0); WHITE BLOOD COUNT 3.2 K/uL (4.8-10.8)
[2016-09-18] MEDS: Acetylcysteine 10% 4 ML IH SCH (07:51)
[2016-09-18] MEDS: Albuterol 0.083% Inhal Sol (2.5 mg/3 mL) UD INH SCH (07:51)
[2016-09-18] MEDS: Multivitamin Vitamin B Complex (Nephro-Vite) Tab PO SCH (08:19)
[2016-09-18] MEDS: Sevelamer Carb 0.8 gm/Packet PO SCH ×2 (08:20→17:16)
[2016-09-18] MEDS: Lidocaine 5% Patch TD SCH (08:20)
--- NOTE | 2016-09-18 17:20 | CP.PCM.PN ---
<Bessie Oreilly - Last Filed: 09/18/16 17:16> Subjective - Date & Time of Evaluation Date of Evaluation: 09/18/16 Time of Evaluation: 08:05 - Subjective Subjective: Patient was seen and examined at bedside. Patient had an uneventful night. Still complaining of cough with sputum production, but not getting worse. Still complaining of left upper chest wall pain reproduced by palpation and cough. Objective - Vital Signs/Intake and Output Vital Signs (last 24 hours): Temp Pulse Resp BP Pulse Ox 96.8 F L 69 20 141/81 97 09/18/16 16:47 09/18/16 16:47 09/18/16 16:47 09/18/16 16:47 09/18/16 16:47 - Medications Medications: Current Medications Acetaminophen (Tylenol 325mg Tab) 650 mg PO Q6 PRN PRN Reason: Pain, moderate (4-7) Last Admin: 09/17/16 14:00 Dose: 650 mg Acetylcysteine (Mucomyst 10% 4ml) 2 ml IH RBID [facility] Last Admin: 09/18/16 07:51 Dose: 2 ml Albuterol Sulfate (Albuterol 0.083% Inhal Faina (2.5 Mg/3 Ml) Ud) 2.5 mg INH BID [facility] Last Admin: 09/18/16 07:51 Dose: 2.5 mg Albuterol Sulfate (Albuterol 0.083% Inhal Faina (2.5 Mg/3 Ml) Ud) 2.5 mg INH RQ4 PRN PRN Reason: Shortness of Breath Ascorbic Acid (Vitamin C 500 Mg Tab) 500 mg PO DAILY [facility] Last Admin: 09/18/16 08:20 Dose: 500 mg Azithromycin (Zithromax) 250 mg PO DAILY [facility] Last Admin: 09/18/16 08:19 Dose: 250 mg Benzonatate (Tessalon Perles) 100 mg PO TID PRN PRN Reason: Cough Last Admin: 09/16/16 09:09 Dose: 100 mg Calamine (Calamine Lotion) 1 applic TOP BID PRN PRN Reason: Itching / Pruritus Carvedilol (Coreg) 3.125 mg PO SUTUTHSA@0900,2100 [facility] Last Admin: 09/18/16 08:20 Dose: 3.125 mg Duloxetine HCl (Cymbalta) 30 mg PO QAM [facility] Last Admin: 09/18/16 08:20 Dose: 30 mg Ergocalciferol (Drisdol 50,000 Intl Units Cap) 1 cap PO TUE [facility] Last Admin: 09/16/16 09:05 Dose: 1 cap Lidocaine (Lidoderm) 1 ea TD DAILY [facility] Last Admin: 09/18/16 08:20 Dose: 1 ea Sevelamer Carbonate (Renvela) 0.8 gm PO BID [facility] Last Admin: 09/18/16 08:20 Dose: 0.8 gm Tamsulosin HCl (Flomax) 0.4 mg PO QPM [facility] Last Admin: 09/17/16 18:52 Dose: 0.4 mg Vitamin B Complex/Vit C/Folic Acid (Nephro-Faraz) 1 tab PO DAILY [facility] Last Admin: 09/18/16 08:19 Dose: 1 tab - Labs Labs: 09/18/16 06:53 09/17/16 11:10 PT 14.5 SECONDS (9.6-11.2) H 09/15/16 04:00 INR 1.39 (0.92-1.08) H 09/15/16 04:00 APTT 33.4 SECONDS (23.3-32.5) H 09/15/16 04:00 - Additional Findings Additional findings: Constitutional Appears: Non-toxic, No Acute Distress - ENT Exam ENT Exam: Mucous Membranes Moist - Respiratory Exam Respiratory Exam: Chest Wall Tenderness (tender to palpation of left upper/ lower chest), clear lung to auscultation bilateral, NORMAL BREATHING PATTERN. absent: Rales, Wheezes, Rhonchi - Cardiovascular Exam Cardiovascular Exam: REGULAR RHYTHM, +S1, +S2, murmur - GI/Abdominal Exam GI & Abdominal Exam: Soft, Normal Bowel Sounds. absent: Guarding, Rigid, Tenderness Additional comments: Protuberant - Extremities Exam Extremities Exam: Normal Inspection. absent: Calf Tenderness, Pedal Edema Additional comments: AV fistula in left arm, with continuos bruit and thrill - Neurological Exam Neurological Exam: Alert, Awake, Oriented x3 - Skin Skin Exam: Dry, Intact, Normal Color Assessment and Plan - Assessment and Plan (Free Text) Assessment: 81 y/o M with PMHx of CKD on HD, s/p fall and small stable subdural hematoma, admitted to TCU for PT eval and treatment, now with new onset of productive cough, improving. Plan: Cough, and white sputum -Afebrile, no leukocytosis -Improving clinically -chest x ray showed left basilar consolidation that could represent atelectasis new since previous exam -c/w Azithromycin PO daily for 5 more days -Decreased frequency of Duoneb neb Q12 hours -Acetylcysteine BID -Respiratory therapy -Insentive spirometer -F/U chest CT w/o contrast recommended by Pulmonology -Pulmonology consult appreciated. Dr. 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 Cain/Dr. Vazquez on board. c/w HD M W F -Sevelamer 800 mg PO BID Atypical left chest pain most likely musculoskeletal etiology -Still present, most likely 2/2 fall -Troponin I x 2 neg -EKG showed similar previous findings, no acute changes. -C-xray Ribs: negative for fractures. F/U chest x ray results -Tylenol 650 mg Q8 [facility] for pain Essential Hypertension c/w home med. Carvedilol 3.125 mg PO heart healthy diet Benign prostatic hyperplasia c/w home Tamsulosin 0.4 mg daily PO DVT Prophylaxis DVT - SCDs for now due to low platelet <Jason Brand - Last Filed: 09/19/16 06:45> Objective - Vital Signs/Intake and Output Vital Signs (last 24 hours): Temp Pulse Resp BP Pulse Ox 96 F L 69 20 131/76 97 09/18/16 20:43 09/18/16 21:27 09/18/16 20:43 09/18/16 21:27 09/18/16 20:43 - Medications Medications: Current Medications Acetaminophen (Tylenol 325mg Tab) 650 mg PO Q6 PRN PRN Reason: Pain, moderate (4-7) Last Admin: 09/17/16 14:00 Dose: 650 mg Acetylcysteine (Mucomyst 10% 4ml) 2 ml IH RBID [facility] Last Admin: 09/18/16 07:51 Dose: 2 ml Albuterol Sulfate (Albuterol 0.083% Inhal Faina (2.5 Mg/3 Ml) Ud) 2.5 mg INH BID [facility] Last Admin: 09/18/16 07:51 Dose: 2.5 mg Albuterol Sulfate (Albuterol 0.083% Inhal Faina (2.5 Mg/3 Ml) Ud) 2.5 mg INH RQ4 PRN PRN Reason: Shortness of Breath Ascorbic Acid (Vitamin C 500 Mg Tab) 500 mg PO DAILY [facility] Last Admin: 09/18/16 08:20 Dose: 500 mg Azithromycin (Zithromax) 250 mg PO DAILY [facility] Last Admin: 09/18/16 08:19 Dose: 250 mg Benzonatate (Tessalon Perles) 100 mg PO TID PRN PRN Reason: Cough Last Admin: 09/16/16 09:09 Dose: 100 mg Calamine (Calamine Lotion) 1 applic TOP BID PRN PRN Reason: Itching / Pruritus Carvedilol (Coreg) 3.125 mg PO SUTUTHSA@0900,2100 [facility] Last Admin: 09/18/16 21:27 Dose: 3.125 mg Duloxetine HCl (Cymbalta) 30 mg PO QAM [facility] Last Admin: 09/18/16 08:20 Dose: 30 mg Ergocalciferol (Drisdol 50,000 Intl Units Cap) 1 cap PO TUE [facility] Last Admin: 09/16/16 09:05 Dose: 1 cap Lidocaine (Lidoderm) 1 ea TD DAILY [facility] Last Admin: 09/18/16 08:20 Dose: 1 ea Sevelamer Carbonate (Renvela) 0.8 gm PO BID [facility] Last Admin: 09/18/16 17:16 Dose: 0.8 gm Tamsulosin HCl (Flomax) 0.4 mg PO QPM [facility] Last Admin: 09/18/16 17:16 Dose: 0.4 mg Vitamin B Complex/Vit C/Folic Acid (Nephro-Faraz) 1 tab PO DAILY [facility] Last Admin: 09/18/16 08:19 Dose: 1 tab - Labs Labs: 09/18/16 06:53 09/17/16 11:10 PT 14.5 SECONDS (9.6-11.2) H 09/15/16 04:00 INR 1.39 (0.92-1.08) H 09/15/16 04:00 APTT 33.4 SECONDS (23.3-32.5) H 09/15/16 04:00 Attending/Attestation - Attestation I have personally seen and examined this patient.: Yes I have fully participated in the care of the patient.: Yes I have reviewed all pertinent clinical information, including history, physical exam and plan: Yes
--- NOTE | 2016-09-18 20:21 | CP.PCM.PN ---
Subjective - Date & Time of Evaluation Date of Evaluation: 09/18/16 Time of Evaluation: 13:00 - Subjective Subjective: SEEN ON RENAL F/[place] [facility] [place] [facility] Objective - Vital Signs/Intake and Output Vital Signs (last 24 hours): Temp Pulse Resp BP Pulse Ox 96.8 F L 69 20 141/81 97 09/18/16 16:47 09/18/16 16:47 09/18/16 16:47 09/18/16 16:47 09/18/16 16:47 - Medications Medications: Current Medications Acetaminophen (Tylenol 325mg Tab) 650 mg PO Q6 PRN PRN Reason: Pain, moderate (4-7) Last Admin: 09/17/16 14:00 Dose: 650 mg Acetylcysteine (Mucomyst 10% 4ml) 2 ml IH RBID [facility] Last Admin: 09/18/16 07:51 Dose: 2 ml Albuterol Sulfate (Albuterol 0.083% Inhal Faina (2.5 Mg/3 Ml) Ud) 2.5 mg INH BID [facility] Last Admin: 09/18/16 07:51 Dose: 2.5 mg Albuterol Sulfate (Albuterol 0.083% Inhal Faina (2.5 Mg/3 Ml) Ud) 2.5 mg INH RQ4 PRN PRN Reason: Shortness of Breath Ascorbic Acid (Vitamin C 500 Mg Tab) 500 mg PO DAILY [facility] Last Admin: 09/18/16 08:20 Dose: 500 mg Azithromycin (Zithromax) 250 mg PO DAILY [facility] Last Admin: 09/18/16 08:19 Dose: 250 mg Benzonatate (Tessalon Perles) 100 mg PO TID PRN PRN Reason: Cough Last Admin: 09/16/16 09:09 Dose: 100 mg Calamine (Calamine Lotion) 1 applic TOP BID PRN PRN Reason: Itching / Pruritus Carvedilol (Coreg) 3.125 mg PO SUTUTHSA@0900,2100 [facility] Last Admin: 09/18/16 08:20 Dose: 3.125 mg Duloxetine HCl (Cymbalta) 30 mg PO QAM [facility] Last Admin: 09/18/16 08:20 Dose: 30 mg Ergocalciferol (Drisdol 50,000 Intl Units Cap) 1 cap PO TUE [facility] Last Admin: 09/16/16 09:05 Dose: 1 cap Lidocaine (Lidoderm) 1 ea TD DAILY [facility] Last Admin: 09/18/16 08:20 Dose: 1 ea Sevelamer Carbonate (Renvela) 0.8 gm PO BID [facility] Last Admin: 09/18/16 17:16 Dose: 0.8 gm Tamsulosin HCl (Flomax) 0.4 mg PO QPM [facility] Last Admin: 09/18/16 17:16 Dose: 0.4 mg Vitamin B Complex/Vit C/Folic Acid (Nephro-Faraz) 1 tab PO DAILY [facility] Last Admin: 09/18/16 08:19 Dose: 1 tab - Labs Labs: 09/18/16 06:53 09/17/16 11:10 PT 14.5 SECONDS (9.6-11.2) H 09/15/16 04:00 INR 1.39 (0.92-1.08) H 09/15/16 04:00 APTT 33.4 SECONDS (23.3-32.5) H 09/15/16 04:00 Assessment and Plan - Assessment and Plan (Free Text) Assessment: ESRD ON HD M W F ANEMIA OF CKD .. H/H STABLE C/O CURRENT CARE
[2016-09-19] MEDS: Albuterol 0.083% Inhal Sol (2.5 mg/3 mL) UD INH SCH ×2 (07:24→19:39)
[2016-09-19] MEDS: Acetylcysteine 10% 4 ML IH SCH ×2 (07:25→19:40)
--- NOTE | 2016-09-19 10:09 | CP.PCM.PN ---
Subjective - Date & Time of Evaluation Date of Evaluation: 09/19/16 Time of Evaluation: 10:07 - Subjective Subjective: CT chest showing moderate right and large left pleural effusions. Both are associated with passive basal atelectasis as well. Needs eval for IR thoracentesis on the left. Objective - Vital Signs/Intake and Output Vital Signs (last 24 hours): Temp Pulse Resp BP Pulse Ox 96 F L 69 20 131/76 97 09/18/16 20:43 09/18/16 21:27 09/18/16 20:43 09/18/16 21:27 09/18/16 20:43 - Medications Medications: Current Medications Acetaminophen (Tylenol 325mg Tab) 650 mg PO Q6 PRN PRN Reason: Pain, moderate (4-7) Last Admin: 09/17/16 14:00 Dose: 650 mg Acetylcysteine (Mucomyst 10% 4ml) 2 ml IH RBID [facility] Last Admin: 09/19/16 07:25 Dose: Not Given Albuterol Sulfate (Albuterol 0.083% Inhal Faina (2.5 Mg/3 Ml) Ud) 2.5 mg INH RQ4 PRN PRN Reason: Shortness of Breath Albuterol Sulfate (Albuterol 0.083% Inhal Faina (2.5 Mg/3 Ml) Ud) 2.5 mg INH RBID [facility] Last Admin: 09/19/16 07:24 Dose: Not Given Ascorbic Acid (Vitamin C 500 Mg Tab) 500 mg PO DAILY [facility] Last Admin: 09/18/16 08:20 Dose: 500 mg Azithromycin (Zithromax) 250 mg PO DAILY [facility] Last Admin: 09/18/16 08:19 Dose: 250 mg Benzonatate (Tessalon Perles) 100 mg PO TID PRN PRN Reason: Cough Last Admin: 09/16/16 09:09 Dose: 100 mg Calamine (Calamine Lotion) 1 applic TOP BID PRN PRN Reason: Itching / Pruritus Carvedilol (Coreg) 3.125 mg PO SUTUTHSA@0900,2100 [facility] Last Admin: 09/18/16 21:27 Dose: 3.125 mg Duloxetine HCl (Cymbalta) 30 mg PO QAM [facility] Last Admin: 09/18/16 08:20 Dose: 30 mg Ergocalciferol (Drisdol 50,000 Intl Units Cap) 1 cap PO TUE [facility] Last Admin: 09/16/16 09:05 Dose: 1 cap Lidocaine (Lidoderm) 1 ea TD DAILY [facility] Last Admin: 09/18/16 08:20 Dose: 1 ea Sevelamer Carbonate (Renvela) 0.8 gm PO BID [facility] Last Admin: 09/18/16 17:16 Dose: 0.8 gm Tamsulosin HCl (Flomax) 0.4 mg PO QPM [facility] Last Admin: 09/18/16 17:16 Dose: 0.4 mg Vitamin B Complex/Vit C/Folic Acid (Nephro-Faraz) 1 tab PO DAILY [facility] Last Admin: 09/18/16 08:19 Dose: 1 tab - Labs Labs: 09/18/16 06:53 09/17/16 11:10 PT 14.5 SECONDS (9.6-11.2) H 09/15/16 04:00 INR 1.39 (0.92-1.08) H 09/15/16 04:00 APTT 33.4 SECONDS (23.3-32.5) H 09/15/16 04:00 Assessment and Plan (1) Atelectasis Status: Acute (2) Musculoskeletal chest pain Status: Acute
[2016-09-19] MEDS: Sevelamer Carb 0.8 gm/Packet PO SCH ×2 (10:42→17:31)
[2016-09-19] MEDS: Multivitamin Vitamin B Complex (Nephro-Vite) Tab PO SCH (10:42)
[2016-09-19] MEDS: Lidocaine 5% Patch TD SCH (10:42)
[2016-09-19 12:23] LABS: ALB/GLOB RATIO 0.9 (1.0-2.1); BILIRUBIN,TOTAL 2.1 mg/dl (0.2-1.3); CALCIUM 8.8 mg/dL (8.4-10.2); POTASSIUM 3.4 MMOL/L (3.6-5.0); TOTAL PROTEIN 8.1 G/DL (6.3-8.2)
[2016-09-19 12:24] LABS: HEMATOCRIT 35.2 % (35.0-51.0); MEAN CELL VOLUME 100.7 fl (80.0-94.0); MEAN CORPUSCULAR HEMOGLOBIN 32.2 pg (27.0-31.0); RED CELL DISTRIBUTION WIDTH 16.5 % (11.5-14.5); WHITE BLOOD COUNT 2.9 K/uL (4.8-10.8)
--- NOTE | 2016-09-19 14:51 | CP.PCM.PN ---
Subjective - Date & Time of Evaluation Date of Evaluation: 09/19/16 Time of Evaluation: 13:00 - Subjective Subjective: Patient was seen and examined at bedside. Patient feeling weak after dialysis that was done this morning. Still complaining of left wall chest pain reproduced by cough. Still coughing associated to white sputum production. Denies chills, SOB, nausea, vomiting, diarrheas, dizziness, or other complains. Objective - Vital Signs/Intake and Output Vital Signs (last 24 hours): Temp Pulse Resp BP Pulse Ox 96 F L 69 20 131/76 97 09/18/16 20:43 09/18/16 21:27 09/18/16 20:43 09/18/16 21:27 09/18/16 20:43 - Medications Medications: Current Medications Acetaminophen (Tylenol 325mg Tab) 650 mg PO Q6 PRN PRN Reason: Pain, moderate (4-7) Last Admin: 09/19/16 10:53 Dose: 650 mg Acetylcysteine (Mucomyst 10% 4ml) 2 ml IH RBID [facility] Last Admin: 09/19/16 07:25 Dose: Not Given Albuterol Sulfate (Albuterol 0.083% Inhal Faina (2.5 Mg/3 Ml) Ud) 2.5 mg INH RQ4 PRN PRN Reason: Shortness of Breath Albuterol Sulfate (Albuterol 0.083% Inhal Faina (2.5 Mg/3 Ml) Ud) 2.5 mg INH RBID [facility] Last Admin: 09/19/16 07:24 Dose: Not Given Ascorbic Acid (Vitamin C 500 Mg Tab) 500 mg PO DAILY [facility] Last Admin: 09/19/16 10:42 Dose: 500 mg Azithromycin (Zithromax) 250 mg PO DAILY [facility] Last Admin: 09/19/16 10:42 Dose: 250 mg Benzonatate (Tessalon Perles) 100 mg PO TID PRN PRN Reason: Cough Last Admin: 09/19/16 10:51 Dose: 100 mg Calamine (Calamine Lotion) 1 applic TOP BID PRN PRN Reason: Itching / Pruritus Carvedilol (Coreg) 3.125 mg PO SUTUTHSA@0900,2100 [facility] Last Admin: 09/18/16 21:27 Dose: 3.125 mg Duloxetine HCl (Cymbalta) 30 mg PO QAM [facility] Last Admin: 09/19/16 10:42 Dose: 30 mg Ergocalciferol (Drisdol 50,000 Intl Units Cap) 1 cap PO TUE [facility] Last Admin: 09/16/16 09:05 Dose: 1 cap Lidocaine (Lidoderm) 1 ea TD DAILY [facility] Last Admin: 09/19/16 10:42 Dose: 1 ea Sevelamer Carbonate (Renvela) 0.8 gm PO BID [facility] Last Admin: 09/19/16 10:42 Dose: 0.8 gm Tamsulosin HCl (Flomax) 0.4 mg PO QPM [facility] Last Admin: 09/18/16 17:16 Dose: 0.4 mg Vitamin B Complex/Vit C/Folic Acid (Nephro-Faraz) 1 tab PO DAILY [facility] Last Admin: 09/19/16 10:42 Dose: 1 tab - Labs Labs: 09/19/16 11:55 09/19/16 11:55 PT 14.5 SECONDS (9.6-11.2) H 09/15/16 04:00 INR 1.39 (0.92-1.08) H 09/15/16 04:00 APTT 33.4 SECONDS (23.3-32.5) H 09/15/16 04:00 - Constitutional Appears: Non-toxic, No Acute Distress - ENT Exam ENT Exam: Mucous Membranes Moist - Respiratory Exam Respiratory Exam: Decreased Breath Sounds (decreased breath sounds to auscultation of left lower lobe), Rales (diffuse, fine crackles in right lower lung. ), NORMAL BREATHING PATTERN - Cardiovascular Exam Cardiovascular Exam: REGULAR RHYTHM, +S1, +S2 Additional comments: Murmur - GI/Abdominal Exam GI & Abdominal Exam: Soft, Normal Bowel Sounds. absent: Distended, Guarding, Rigid, Tenderness - Extremities Exam Extremities Exam: Normal Inspection. absent: Calf Tenderness, Pedal Edema Additional comments: AV fistula in left arm, with continuos bruit and thrill - Neurological Exam Neurological Exam: Alert, Awake, Oriented x3 - Skin Skin Exam: Dry, Intact, Pallor Assessment and Plan - Assessment and Plan (Free Text) Assessment: 81 y/o M with PMHx of CKD on HD, s/p fall and small stable subdural hematoma, admitted to TCU for PT eval and treatment, now with new onset of productive cough, and bilateral pleural effusion. Plan: Cough, and white sputum -Afebrile, no leukocytosis -c/w Azithromycin PO daily. Consider discontinuation on Thursday -Albuterol 0.083 % INH BID -Acetylcysteine BID -Respiratory therapy -Insentive spirometer -Chest CT w/o contrast showed bilateral pleural effusion, large effusion in left lung -Pulmonology consult appreciated. Dr. Barrow on board. Recommended IR evaluation for Thoracocentesis. Consider platelet transfusion if thoracocentesis ( 1 unit on Thursday morning). 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 Cain. c/w HD M W F -Sevelamer 800 mg PO BID Atypical left chest pain most likely musculoskeletal etiology -Still present, most likely 2/2 fall -EKG showed similar previous findings, no acute changes. -C-xray Ribs: negative for fractures. F/U chest x ray results -Tylenol 650 mg Q8 RAÚL for pain Essential Hypertension c/w home med. Carvedilol 3.125 mg PO heart healthy diet Benign prostatic hyperplasia c/w home Tamsulosin 0.4 mg daily PO DVT Prophylaxis DVT - SCDs for now due to low platelet
--- NOTE | 2016-09-19 15:03 | RAD ---
HISTORY: Pneumonia. COMPARISON: Comparison chest 09/15/2016 TECHNIQUE: Chest PA and lateral FINDINGS: LUNGS: Poor inspiration with low lung volumes, crowded bronchovascular markings and mild bibasilar atelectasis. There appears to be more patchy opacity left lung base possibly representing infiltrate. Questionable small left effusion. PLEURA: No apparent pneumothorax apparent. CARDIOVASCULAR: Heart remains enlarged. Aorta is ectatic and uncoiled. OSSEOUS STRUCTURES: No significant abnormalities. VISUALIZED UPPER ABDOMEN: Normal. OTHER FINDINGS: None. IMPRESSION: Poor inspiration with low lung volumes, crowded bronchovascular markings and mild bibasilar atelectasis. There appears to be more patchy opacity left lung base possibly representing infiltrate. Questionable small left effusion.
--- NOTE | 2016-09-19 18:39 | CARD ---
APPROVED REPORT EKG Measurement Heart [id number] <Conclusion> Normal sinus rhythm Right bundle branch block Left anterior fascicular block Bifascicular block Abnormal ECG
--- NOTE | 2016-09-20 00:40 | CP.PCM.PN ---
Subjective - Date & Time of Evaluation Date of Evaluation: 09/19/16 Time of Evaluation: 14:00 - Subjective Subjective: SEEN ON RENAL F/U ALONG WITH DR PRATT FEELS BETTER GETTING HD M W F AT [facility] Objective - Vital Signs/Intake and Output Vital Signs (last 24 hours): Temp Pulse Resp BP Pulse Ox 96.4 F L 74 20 126/77 98 09/19/16 20:10 09/19/16 20:10 09/19/16 20:10 09/19/16 20:10 09/19/16 20:10 - Medications Medications: Current Medications Acetaminophen (Tylenol 325mg Tab) 650 mg PO Q6 PRN PRN Reason: Pain, moderate (4-7) Last Admin: 09/19/16 10:53 Dose: 650 mg Acetylcysteine (Mucomyst 10% 4ml) 2 ml IH RBID [facility] Last Admin: 09/19/16 19:40 Dose: 2 ml Albuterol Sulfate (Albuterol 0.083% Inhal Faina (2.5 Mg/3 Ml) Ud) 2.5 mg INH RQ4 PRN PRN Reason: Shortness of Breath Albuterol Sulfate (Albuterol 0.083% Inhal Faina (2.5 Mg/3 Ml) Ud) 2.5 mg INH RBID [facility] Last Admin: 09/19/16 19:39 Dose: 2.5 mg Ascorbic Acid (Vitamin C 500 Mg Tab) 500 mg PO DAILY [facility] Last Admin: 09/19/16 10:42 Dose: 500 mg Azithromycin (Zithromax) 250 mg PO DAILY [facility] Last Admin: 09/19/16 10:42 Dose: 250 mg Benzonatate (Tessalon Perles) 100 mg PO TID PRN PRN Reason: Cough Last Admin: 09/20/16 00:16 Dose: 100 mg Calamine (Calamine Lotion) 1 applic TOP BID PRN PRN Reason: Itching / Pruritus Carvedilol (Coreg) 3.125 mg PO SUTUTHSA@0900,2100 [facility] Last Admin: 09/18/16 21:27 Dose: 3.125 mg Duloxetine HCl (Cymbalta) 30 mg PO QAM [facility] Last Admin: 09/19/16 10:42 Dose: 30 mg Ergocalciferol (Drisdol 50,000 Intl Units Cap) 1 cap PO TUE [facility] Last Admin: 09/16/16 09:05 Dose: 1 cap Lidocaine (Lidoderm) 1 ea TD DAILY [facility] Last Admin: 09/19/16 10:42 Dose: 1 ea Sevelamer Carbonate (Renvela) 0.8 gm PO BID [facility] Last Admin: 09/19/16 17:31 Dose: 0.8 gm Tamsulosin HCl (Flomax) 0.4 mg PO QPM [facility] Last Admin: 09/19/16 17:31 Dose: 0.4 mg Vitamin B Complex/Vit C/Folic Acid (Nephro-Faraz) 1 tab PO DAILY [facility] Last Admin: 09/19/16 10:42 Dose: 1 tab - Labs Labs: 09/19/16 11:55 09/19/16 11:55 PT 14.5 SECONDS (9.6-11.2) H 09/15/16 04:00 INR 1.39 (0.92-1.08) H 09/15/16 04:00 APTT 33.4 SECONDS (23.3-32.5) H 09/15/16 04:00 Assessment and Plan - Assessment and Plan (Free Text) Assessment: ESRD ON HD M W F [facility]ENOK PLEURAL EFUSION L > R P : C/O CURRENT CARE
[2016-09-20] MEDS: Albuterol 0.083% Inhal Sol (2.5 mg/3 mL) UD INH SCH ×2 (07:40→19:52)
[2016-09-20] MEDS: Acetylcysteine 10% 4 ML IH SCH ×2 (07:40→19:52)
[2016-09-20] MEDS: Sevelamer Carb 0.8 gm/Packet PO SCH ×2 (08:25→17:07)
[2016-09-20] MEDS: Lidocaine 5% Patch TD SCH (08:25)
[2016-09-20] MEDS: Multivitamin Vitamin B Complex (Nephro-Vite) Tab PO SCH (08:25)
--- NOTE | 2016-09-20 09:39 | CP.PCM.CON ---
History of Present Illness - History of Present Illness History of Present Illness: Full Note Dictated CHF (LV, Systolic, Chr) Aortic Stenosis (Severe) Recurrent Falling (?? related) Severe Pulm Hypertension with RV Dysfunction Subdural Hematoma Large Lt Pleural Effusion CKD on Chr HD ?? Early dementia ?? Need for pleural Tap (will discuss with Dr. 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 intervention for Past Patient History - Past Medical History & Family History Past Medical History?: Yes - Past Social History Smoking Status: Never Smoked Chewing Tobacco Use: No Cigar Use: No Alcohol: None Drugs: Denies - CARDIAC Hx Hypertension: Yes - PULMONARY Hx Respiratory Disorders: No - NEUROLOGICAL Hx Transient Ischemic Attacks (TIA): Yes - HEENT Hx Cataracts: Yes - RENAL Hx Dialysis: Yes Date of Last Dialysis Treatment: 09/14/16 Hx Renal Failure: Yes - ENDOCRINE/METABOLIC Hx Endocrine Disorders: No - HEMATOLOGICAL/ONCOLOGICAL Hx Blood Disorders: No - INTEGUMENTARY Hx Dermatological Problems: No - MUSCULOSKELETAL/RHEUMATOLOGICAL Hx Falls: Yes - GASTROINTESTINAL Hx Gastroesophageal Reflux: Yes Other/Comment: Bilateral inguinal hernias - GENITOURINARY/GYNECOLOGICAL Hx Prostate Problems: Yes Other/Comment: Turp in past - PSYCHIATRIC Hx Substance Use: No - SURGICAL HISTORY Hx Surgeries: Yes (Left arm AV shunt) Other/Comment: TUR-P many years ago. Cataract Sx - ANESTHESIA Hx Anesthesia: Yes Hx Anesthesia Reactions: No (None Known) Meds Allergies/Adverse Reactions: Allergies Allergy/AdvReac Type Severity Reaction Status Date / Time cortisone Allergy Mild hicups Verified 09/14/16 17:27 - Medications Medications: Current Medications Acetaminophen (Tylenol 325mg Tab) 650 mg PO Q6 PRN PRN Reason: Pain, moderate (4-7) Last Admin: 09/19/16 10:53 Dose: 650 mg Acetylcysteine (Mucomyst 10% 4ml) 2 ml IH RBID [facility] Last Admin: 09/19/16 19:40 Dose: 2 ml Albuterol Sulfate (Albuterol 0.083% Inhal Faina (2.5 Mg/3 Ml) Ud) 2.5 mg INH RQ4 PRN PRN Reason: Shortness of Breath Albuterol Sulfate (Albuterol 0.083% Inhal Faina (2.5 Mg/3 Ml) Ud) 2.5 mg INH RBID [facility] Last Admin: 09/19/16 19:39 Dose: 2.5 mg Ascorbic Acid (Vitamin C 500 Mg Tab) 500 mg PO DAILY [facility] Last Admin: 09/20/16 08:25 Dose: 500 mg Azithromycin (Zithromax) 250 mg PO DAILY [facility] Last Admin: 09/20/16 08:25 Dose: 250 mg Benzonatate (Tessalon Perles) 100 mg PO TID PRN PRN Reason: Cough Last Admin: 09/20/16 00:16 Dose: 100 mg Calamine (Calamine Lotion) 1 applic TOP BID PRN PRN Reason: Itching / Pruritus Carvedilol (Coreg) 3.125 mg PO SUTUTHSA@0900,2100 [facility] Last Admin: 09/20/16 08:24 Dose: 3.125 mg Duloxetine HCl (Cymbalta) 30 mg PO QAM [facility] Last Admin: 09/20/16 08:24 Dose: 30 mg Ergocalciferol (Drisdol 50,000 Intl Units Cap) 1 cap PO TUE [facility] Last Admin: 09/16/16 09:05 Dose: 1 cap Lidocaine (Lidoderm) 1 ea TD DAILY [facility] Last Admin: 09/20/16 08:25 Dose: 1 ea Sevelamer Carbonate (Renvela) 0.8 gm PO BID [facility] Last Admin: 09/20/16 08:25 Dose: 0.8 gm Tamsulosin HCl (Flomax) 0.4 mg PO QPM [facility] Last Admin: 09/19/16 17:31 Dose: 0.4 mg Vitamin B Complex/Vit C/Folic Acid (Nephro-Faraz) 1 tab PO DAILY [facility] Last Admin: 09/20/16 08:25 Dose: 1 tab Results - Vital Signs Recent Vital Signs: Last Vital Signs Temp 98.0 F 09/20/16 09:04 Pulse 75 09/20/16 09:04 Resp 20 09/20/16 09:04 BP 127/62 09/20/16 09:04 Pulse Ox 98 09/20/16 09:04 - Labs Result Diagrams: 09/19/16 11:55 09/19/16 11:55 Labs: Laboratory Results - last 24 hr 09/19/16 09/19/16 11:55 11:55 WBC 2.9 L RBC 3.50 L Hgb 11.3 L Hct 35.2 MCV 100.7 H MCH 32.2 H MCHC 32.0 L RDW 16.5 H Plt Count 67 L Sodium 136 Potassium 3.4 L Chloride 98 Carbon Dioxide 26 Anion Gap 15 BUN 18 Creatinine 2.2 H Est GFR ( Amer) 35 Est GFR (Non-Af Amer) 29 Random Glucose 113 H Calcium 8.8 Total Bilirubin 2.1 H AST 34 ALT 14 L D Alkaline Phosphatase 123 Total Protein 8.1 Albumin 3.8 Globulin 4.4 H Albumin/Globulin Ratio 0.9 L
--- NOTE | 2016-09-20 11:00 | CON ---
DATE: 09/20/2016 The patient is hospitalized under Dr. Brand's care in room 710 of transitional care unit. HISTORY OF PRESENT ILLNESS: This 81-year-old hypertensive man on chronic hemodialysis has had multip le falls. He had a hip fracture in March of last year and required surgery and now has come into the hospital having had a fall with a subdural hematoma and contusion to the left side of his chest. A CT scan showed evidence of a pericardial effusion and hence this consultation was requested. PHYSICAL EXAMINATION: GENERAL: Shows an elderly exhausted man who is able to breathe with some difficulty sitting up in be d. VITAL SIGNS: He breathes at approximately 18-20 breaths per minute. Has a heart rate of 76 beats pe r minute, regular and a blood pressure of 134/80 mmHg. NECK: His jugular veins were distended up to the angle of the jaw while sitting up in bed with mild pedal edema. EXTREMITIES: There was a mild tinge of peripheral cyanosis. A dialysis AV shunt was evident on his left upper extremity. The pedal pulses were extremely feeble. HEART: The apex was not palpable. The first heart sound was muffled. The second heart sound was ab sent. There was an apical systolic murmur. LUNGS: The air entry was reduced at left base. There were coarse crepitations on the right base. T he chest was mildly emphysematous. ABDOMEN: Slightly distended with evidence of free fluid in the abdomen. His electrocardiogram showed sinus rhythm with a right bundle branch block and a left anterior hemibl ock. No Q-waves suggestive of myocardial infarction were evident. Echocardiogram was reviewed. It shows a depressed left ventricular systolic function with ejection fraction in the range of 40% with a peak aortic valve gradient of 34 mmHg, suggesting evidence of severe aortic stenosis. There is aor tic regurgitation as well. There is severe tricuspid regurgitation with a pulmonary artery systolic pressure of 59 mmHg indicating severe pulmonary hypertension with an enlarged right ventricle, which has poor systolic function. LABORATORY DATA: Noted. IMPRESSION AND PLAN: At this time, is congestive cardiac failure which is left ventricular systolic and chronic with severe aortic stenosis, severe pulmonary hypertension with right ventricular systoli c dysfunction, a large left pleural effusion, possible ascites, chronic hemodialysis and early greyson ia by reviewing his chart. I have discussed the case with Dr. Barrow regarding a need for left pleural tap which is being arranged. I will also speak with the recoater regarding aggressive fluid rem oval during hemodialysis so as to relieve volume overload. Repeated falling and congestive heart sosa lure in face of severe aortic stenosis had bad prognostic significance. I will discuss this with Dr. Brand, particularly to review options in this patient who is chronically sick, is 81 years old and apparently has early dementia. Aggressive intervention for valve replacement may not be appropriate under these circumstances. Parish Hunter MD cc: [id number] TT: 09/20/2016 10:59:14 Confirmation # [id number] Dictation # [id number] rn
--- NOTE | 2016-09-20 12:54 | CP.PCM.PN ---
Subjective - Date & Time of Evaluation Date of Evaluation: 09/20/16 Time of Evaluation: 11:00 - Subjective Subjective: 81 y/o M admitted for subdural hematoma, on HM MWF seen at bedside in flat decubitus, no acute distress, denies CP, palpitations or SOB at rest. Patient states he had a BM 2 days ago. He is tolerating PO. Denies headache, dizziness. As per Cardio/Pulm patient is gonna need a thoracentesis for L/pleural effusion. Patient states "he wants to go home" because he can sleep better there. Objective - Vital Signs/Intake and Output Vital Signs (last 24 hours): Temp Pulse Resp BP Pulse Ox 98.0 F 75 20 127/62 98 09/20/16 09:04 09/20/16 09:04 09/20/16 09:04 09/20/16 09:04 09/20/16 09:04 - Medications Medications: Current Medications Acetaminophen (Tylenol 325mg Tab) 650 mg PO Q6 PRN PRN Reason: Pain, moderate (4-7) Last Admin: 09/19/16 10:53 Dose: 650 mg Acetylcysteine (Mucomyst 10% 4ml) 2 ml IH RBID [facility] Last Admin: 09/19/16 19:40 Dose: 2 ml Albuterol Sulfate (Albuterol 0.083% Inhal Faina (2.5 Mg/3 Ml) Ud) 2.5 mg INH RQ4 PRN PRN Reason: Shortness of Breath Albuterol Sulfate (Albuterol 0.083% Inhal Faina (2.5 Mg/3 Ml) Ud) 2.5 mg INH RBID [facility] Last Admin: 09/20/16 07:40 Dose: 2.5 mg Ascorbic Acid (Vitamin C 500 Mg Tab) 500 mg PO DAILY [facility] Last Admin: 09/20/16 08:25 Dose: 500 mg Azithromycin (Zithromax) 250 mg PO DAILY [facility] Last Admin: 09/20/16 08:25 Dose: 250 mg Benzonatate (Tessalon Perles) 100 mg PO TID PRN PRN Reason: Cough Last Admin: 09/20/16 00:16 Dose: 100 mg Calamine (Calamine Lotion) 1 applic TOP BID PRN PRN Reason: Itching / Pruritus Carvedilol (Coreg) 3.125 mg PO SUTUTHSA@0900,2100 [facility] Last Admin: 09/20/16 08:24 Dose: 3.125 mg Duloxetine HCl (Cymbalta) 30 mg PO QAM [facility] Last Admin: 09/20/16 08:24 Dose: 30 mg Ergocalciferol (Drisdol 50,000 Intl Units Cap) 1 cap PO TUE [facility] Last Admin: 09/16/16 09:05 Dose: 1 cap Lidocaine (Lidoderm) 1 ea TD DAILY [facility] Last Admin: 09/20/16 08:25 Dose: 1 ea Sevelamer Carbonate (Renvela) 0.8 gm PO BID [facility] Last Admin: 09/20/16 08:25 Dose: 0.8 gm Tamsulosin HCl (Flomax) 0.4 mg PO QPM [facility] Last Admin: 09/19/16 17:31 Dose: 0.4 mg Vitamin B Complex/Vit C/Folic Acid (Nephro-Fraaz) 1 tab PO DAILY [facility] Last Admin: 09/20/16 08:25 Dose: 1 tab - Labs Labs: 09/19/16 11:55 09/19/16 11:55 PT 14.5 SECONDS (9.6-11.2) H 09/15/16 04:00 INR 1.39 (0.92-1.08) H 09/15/16 04:00 APTT 33.4 SECONDS (23.3-32.5) H 09/15/16 04:00 - Constitutional Appears: Chronically Ill - Head Exam Head Exam: NORMAL INSPECTION - Eye Exam Eye Exam: PERRL - ENT Exam ENT Exam: Mucous Membranes Moist - Respiratory Exam Respiratory Exam: Decreased Breath Sounds (L/base), Rales (Bibasilar) - Cardiovascular Exam Cardiovascular Exam: +S1, +S2. absent: Gallop - GI/Abdominal Exam GI & Abdominal Exam: Soft, Normal Bowel Sounds. absent: Distended, Tenderness - Extremities Exam Extremities Exam: Normal Capillary Refill - Neurological Exam Neurological Exam: Alert, Awake, Oriented x3 - Psychiatric Exam Psychiatric exam: Normal Affect, Normal Mood - Skin Skin Exam: Pallor, Warm Assessment and Plan - Assessment and Plan (Free Text) Assessment: 81 y/o M with PMHx of CKD on HD, s/p fall and small stable subdural hematoma, admitted to TCU for PT eval and treatment, now with new onset of productive cough, and bilateral pleural effusion more prominent in L/side Cough, and white sputum -Afebrile, no leukocytosis -c/w Azithromycin PO daily. Consider DC on Thursday -Albuterol 0.083 % INH BID -Acetylcysteine BID -Respiratory therapy -Incentive spirometer -Pleural effusion B/L more evident L/side -Pulmonology consult appreciated. Dr. Barrow on board. Recommended IR evaluation for Thoracocentesis. 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 Cain. c/w HD -Sevelamer 800 mg PO BID Atypical left chest pain most likely musculoskeletal etiology -Resolved -Tylenol 650 mg Q8 RAÚL for pain Essential Hypertension c/w home med. Carvedilol 3.125 mg PO heart healthy diet Benign prostatic hyperplasia c/w home Tamsulosin 0.4 mg daily PO DVT Prophylaxis DVT - SCDs for now due to low platelet
[2016-09-20] MEDS ORDERED: Potassium Chloride 20 mEq ER Tab PO ONE (15:28)
[2016-09-21] MEDS: Acetylcysteine 10% 4 ML IH SCH ×2 (07:59→19:28)
[2016-09-21] MEDS: Albuterol 0.083% Inhal Sol (2.5 mg/3 mL) UD INH SCH ×2 (08:00→19:28)
[2016-09-21 08:08] LABS: HEMATOCRIT 32.6 % (35.0-51.0); MEAN CORPUSCULAR HEMOGLOBIN 31.9 pg (27.0-31.0); MEAN CORPUSCULAR HGB CONC 31.9 g/dL (33.0-37.0); RED CELL DISTRIBUTION WIDTH 16.1 % (11.5-14.5); WHITE BLOOD COUNT 3.2 K/uL (4.8-10.8)
[2016-09-21 08:24] LABS: CALCIUM 9.2 mg/dL (8.4-10.2); POTASSIUM 4.1 MMOL/L (3.6-5.0)
[2016-09-21] MEDS: Multivitamin Vitamin B Complex (Nephro-Vite) Tab PO SCH (09:04)
[2016-09-21] MEDS: Lidocaine 5% Patch TD SCH ×2 (09:04→09:29)
[2016-09-21] MEDS: Sevelamer Carb 0.8 gm/Packet PO SCH ×2 (09:04→17:22)
--- NOTE | 2016-09-21 09:39 | CP.PCM.PN ---
Subjective - Date & Time of Evaluation Date of Evaluation: 09/21/16 Time of Evaluation: 09:20 - Subjective Subjective: Clinically unchanged BP 130/70 mm Hg JVP full, pedal oedema++ Lt pleural effusion+ Ejection syst murmur of + (S2 absent) Spoke with Dr. Vazquez re vol overload andneed for removing extra fluid during HD IR being contacted for pleural tap Objective - Vital Signs/Intake and Output Vital Signs (last 24 hours): Temp Pulse Resp BP Pulse Ox 97.8 F 69 20 141/70 99 09/21/16 08:22 09/21/16 09:03 09/21/16 08:22 09/21/16 09:03 09/21/16 08:22 - Medications Medications: Current Medications Acetaminophen (Tylenol 325mg Tab) 650 mg PO Q6 PRN PRN Reason: Pain, moderate (4-7) Last Admin: 09/21/16 06:31 Dose: 650 mg Acetylcysteine (Mucomyst 10% 4ml) 2 ml IH RBID [facility] Last Admin: 09/21/16 07:59 Dose: 2 ml Albuterol Sulfate (Albuterol 0.083% Inhal Faina (2.5 Mg/3 Ml) Ud) 2.5 mg INH RQ4 PRN PRN Reason: Shortness of Breath Albuterol Sulfate (Albuterol 0.083% Inhal Faina (2.5 Mg/3 Ml) Ud) 2.5 mg INH RBID [facility] Last Admin: 09/21/16 08:00 Dose: 2.5 mg Ascorbic Acid (Vitamin C 500 Mg Tab) 500 mg PO DAILY [facility] Last Admin: 09/21/16 09:04 Dose: 500 mg Azithromycin (Zithromax) 250 mg PO DAILY [facility] Last Admin: 09/21/16 09:04 Dose: 250 mg Benzonatate (Tessalon Perles) 100 mg PO TID PRN PRN Reason: Cough Last Admin: 09/20/16 00:16 Dose: 100 mg Calamine (Calamine Lotion) 1 applic TOP BID PRN PRN Reason: Itching / Pruritus Carvedilol (Coreg) 3.125 mg PO SUTUTHSA@0900,2100 [facility] Last Admin: 09/21/16 09:03 Dose: 3.125 mg Duloxetine HCl (Cymbalta) 30 mg PO QAM [facility] Last Admin: 09/21/16 09:03 Dose: 30 mg Ergocalciferol (Drisdol 50,000 Intl Units Cap) 1 cap PO TUE [facility] Last Admin: 09/16/16 09:05 Dose: 1 cap Lidocaine (Lidoderm) 1 ea TD DAILY [facility] Last Admin: 09/21/16 09:29 Dose: Not Given Sevelamer Carbonate (Renvela) 0.8 gm PO BID [facility] Last Admin: 09/21/16 09:04 Dose: 0.8 gm Tamsulosin HCl (Flomax) 0.4 mg PO QPM [facility] Last Admin: 09/20/16 17:07 Dose: 0.4 mg Vitamin B Complex/Vit C/Folic Acid (Nephro-Faraz) 1 tab PO DAILY [facility] Last Admin: 09/21/16 09:04 Dose: 1 tab - Labs Labs: 09/21/16 05:30 09/21/16 05:30 PT 14.5 SECONDS (9.6-11.2) H 09/15/16 04:00 INR 1.39 (0.92-1.08) H 09/15/16 04:00 APTT 33.4 SECONDS (23.3-32.5) H 09/15/16 04:00
--- NOTE | 2016-09-21 15:25 | CP.PCM.PN ---
Subjective - Date & Time of Evaluation Date of Evaluation: 09/21/16 Time of Evaluation: 09:10 - Subjective Subjective: 81 y/o M with PMHx of CKD on HD, s/p fall and small stable subdural hematoma, admitted to TCU for PT eval and treatment, now being f/u for bilateral pleural effusion and pericardial effusion. Pt was seen and examined at bedside at this evaluation. Patient still complaining of productive cough associated to white sputum. Reports that the left sided wall chest pain has been improved, and denies any pain at this time. Denies dizziness, SOB, N/V , abdominal pain, diarrheas. Reports poor appetite. Objective - Vital Signs/Intake and Output Vital Signs (last 24 hours): Temp Pulse Resp BP Pulse Ox 97.8 F 69 20 141/70 99 09/21/16 08:22 09/21/16 09:03 09/21/16 08:22 09/21/16 09:03 09/21/16 08:22 - Medications Medications: Current Medications Acetaminophen (Tylenol 325mg Tab) 650 mg PO Q6 PRN PRN Reason: Pain, moderate (4-7) Last Admin: 09/21/16 06:31 Dose: 650 mg Acetylcysteine (Mucomyst 10% 4ml) 2 ml IH RBID [facility] Last Admin: 09/21/16 07:59 Dose: 2 ml Albuterol Sulfate (Albuterol 0.083% Inhal Faina (2.5 Mg/3 Ml) Ud) 2.5 mg INH RQ4 PRN PRN Reason: Shortness of Breath Albuterol Sulfate (Albuterol 0.083% Inhal Faina (2.5 Mg/3 Ml) Ud) 2.5 mg INH RBID [facility] Last Admin: 09/21/16 08:00 Dose: 2.5 mg Ascorbic Acid (Vitamin C 500 Mg Tab) 500 mg PO DAILY [facility] Last Admin: 09/21/16 09:04 Dose: 500 mg Azithromycin (Zithromax) 250 mg PO DAILY [facility] Last Admin: 09/21/16 09:04 Dose: 250 mg Benzonatate (Tessalon Perles) 100 mg PO TID PRN PRN Reason: Cough Last Admin: 09/20/16 00:16 Dose: 100 mg Calamine (Calamine Lotion) 1 applic TOP BID PRN PRN Reason: Itching / Pruritus Carvedilol (Coreg) 3.125 mg PO SUTUTHSA@0900,2100 [facility] Last Admin: 09/21/16 09:03 Dose: 3.125 mg Duloxetine HCl (Cymbalta) 30 mg PO QAM [facility] Last Admin: 09/21/16 09:03 Dose: 30 mg Ergocalciferol (Drisdol 50,000 Intl Units Cap) 1 cap PO TUE [facility] Last Admin: 09/16/16 09:05 Dose: 1 cap Lidocaine (Lidoderm) 1 ea TD DAILY [facility] Last Admin: 09/21/16 09:29 Dose: Not Given Sevelamer Carbonate (Renvela) 0.8 gm PO BID [facility] Last Admin: 09/21/16 09:04 Dose: 0.8 gm Tamsulosin HCl (Flomax) 0.4 mg PO QPM [facility] Last Admin: 09/20/16 17:07 Dose: 0.4 mg Vitamin B Complex/Vit C/Folic Acid (Nephro-Faraz) 1 tab PO DAILY [facility] Last Admin: 09/21/16 09:04 Dose: 1 tab - Labs Labs: 09/21/16 05:30 09/21/16 05:30 PT 14.5 SECONDS (9.6-11.2) H 09/15/16 04:00 INR 1.39 (0.92-1.08) H 09/15/16 04:00 APTT 33.4 SECONDS (23.3-32.5) H 09/15/16 04:00 - Additional Findings Additional findings: Constitutional Appears: Non-toxic, No Acute Distress - ENT Exam ENT Exam: Mucous Membranes Moist - Respiratory Exam Respiratory Exam: Decreased Breath Sounds (decreased breath sounds to auscultation of left lower lobe), Rales (diffuse, fine crackles in right lower lung. ), NORMAL BREATHING PATTERN - Cardiovascular Exam Cardiovascular Exam: REGULAR RHYTHM, +S1, +S2 Additional comments: Murmur - GI/Abdominal Exam GI & Abdominal Exam: Soft, Normal Bowel Sounds. absent: Distended, Guarding, Rigid, Tenderness - Extremities Exam Extremities Exam: Normal Inspection. absent: Calf Tenderness, Pedal Edema Additional comments: AV fistula in left arm, with continuos bruit and thrill - Neurological Exam Neurological Exam: Alert, Awake, Oriented x3 - Skin Skin Exam: Dry, Intact, Pallor Assessment and Plan - Assessment and Plan (Free Text) Assessment: 81 y/o M with PMHx of CKD on HD, s/p fall and small stable subdural hematoma, admitted to TCU for PT eval and treatment, now with new onset of productive cough, and bilateral pleural effusion more prominent in L/side Plan: Cough, and white sputum -Afebrile, no leukocytosis -c/w Azithromycin PO daily. Consider DC on Thursday -Albuterol 0.083 % INH BID -Tessalon 100 mg PO TID PRN -Acetylcysteine BID -Respiratory therapy -Incentive spirometer -Pleural effusion B/L more evident L/side -Pulmonology consult appreciated. Dr. Barrow on board. Recommended IR evaluation for Thoracocentesis. 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 Cain. c/w HD W -Sevelamer 800 mg PO BID Atypical left chest pain most likely musculoskeletal etiology -Resolved -Tylenol 650 mg Q8 PRN for pain Essential Hypertension c/w home med. Carvedilol 3.125 mg PO heart healthy diet Benign prostatic hyperplasia c/w home Tamsulosin 0.4 mg daily PO DVT Prophylaxis DVT - SCDs for now due to low platelet
[2016-09-22] MEDS: Albuterol 0.083% Inhal Sol (2.5 mg/3 mL) UD INH SCH ×2 (08:29→19:29)
[2016-09-22] MEDS: Multivitamin Vitamin B Complex (Nephro-Vite) Tab PO SCH (11:02)
[2016-09-22] MEDS: Sevelamer Carb 0.8 gm/Packet PO SCH ×2 (11:02→17:32)
[2016-09-22] MEDS: Lidocaine 5% Patch TD SCH (11:03)
--- NOTE | 2016-09-22 15:45 | CP.PCM.PN ---
Subjective - Date & Time of Evaluation Date of Evaluation: 09/22/16 Time of Evaluation: 12:00 - Subjective Subjective: 81 y/o M with PMHx of CKD on HD, s/p fall and small stable subdural hematoma, admitted to TCU for PT eval and treatment, now being f/u for bilateral pleural effusion and pericardial effusion. Patient was seen and examined at bedside. Patient came back from hemodialysis. Patient still coughing associated to white sputum production. Patient states that he feels weak. Voiding without complains. Passing gas and bowel movements. Objective - Vital Signs/Intake and Output Vital Signs (last 24 hours): Temp Pulse Resp BP Pulse Ox 98.4 F 72 20 126/83 98 09/21/16 21:34 09/21/16 21:34 09/21/16 21:34 09/21/16 22:10 09/21/16 21:34 - Medications Medications: Current Medications Acetaminophen (Tylenol 325mg Tab) 650 mg PO Q6 PRN PRN Reason: Pain, moderate (4-7) Last Admin: 09/22/16 05:12 Dose: 650 mg Acetylcysteine (Mucomyst 10% 4ml) 2 ml IH RBID [facility] Last Admin: 09/21/16 19:28 Dose: 2 ml Albuterol Sulfate (Albuterol 0.083% Inhal Faina (2.5 Mg/3 Ml) Ud) 2.5 mg INH RQ4 PRN PRN Reason: Shortness of Breath Albuterol Sulfate (Albuterol 0.083% Inhal Faina (2.5 Mg/3 Ml) Ud) 2.5 mg INH RBID [facility] Last Admin: 09/22/16 08:29 Dose: Not Given Ascorbic Acid (Vitamin C 500 Mg Tab) 500 mg PO DAILY [facility] Last Admin: 09/22/16 11:02 Dose: 500 mg Azithromycin (Zithromax) 250 mg PO DAILY [facility] Last Admin: 09/22/16 11:02 Dose: 250 mg Benzonatate (Tessalon Perles) 100 mg PO TID PRN PRN Reason: Cough Last Admin: 09/21/16 22:09 Dose: 100 mg Calamine (Calamine Lotion) 1 applic TOP BID PRN PRN Reason: Itching / Pruritus Carvedilol (Coreg) 3.125 mg PO SUTUTHSA@0900,2100 [facility] Last Admin: 09/21/16 22:10 Dose: 3.125 mg Duloxetine HCl (Cymbalta) 30 mg PO QAM [facility] Last Admin: 09/22/16 11:02 Dose: 30 mg Ergocalciferol (Drisdol 50,000 Intl Units Cap) 1 cap PO TUE [facility] Last Admin: 09/16/16 09:05 Dose: 1 cap Lidocaine (Lidoderm) 1 ea TD DAILY [facility] Last Admin: 09/22/16 11:03 Dose: Not Given Sevelamer Carbonate (Renvela) 0.8 gm PO BID [facility] Last Admin: 09/22/16 11:02 Dose: 0.8 gm Tamsulosin HCl (Flomax) 0.4 mg PO QPM [facility] Last Admin: 09/21/16 17:22 Dose: 0.4 mg Vitamin B Complex/Vit C/Folic Acid (Nephro-Faraz) 1 tab PO DAILY [facility] Last Admin: 09/22/16 11:02 Dose: 1 tab - Labs Labs: 09/21/16 05:30 09/21/16 05:30 PT 14.5 SECONDS (9.6-11.2) H 09/15/16 04:00 INR 1.39 (0.92-1.08) H 09/15/16 04:00 APTT 33.4 SECONDS (23.3-32.5) H 09/15/16 04:00 - Additional Findings Additional findings: Constitutional Appears: Non-toxic, No Acute Distress - ENT Exam ENT Exam: Mucous Membranes Moist - Respiratory Exam Respiratory Exam: Decreased Breath Sounds (decreased breath sounds to auscultation of left lower lobe), Rales (diffuse, fine crackles in right lower lung. ), NORMAL BREATHING PATTERN - Cardiovascular Exam Cardiovascular Exam: REGULAR RHYTHM, +S1, +S2 Additional comments: Murmur - GI/Abdominal Exam GI & Abdominal Exam: Soft, Normal Bowel Sounds. absent: Distended, Guarding, Rigid, Tenderness - Extremities Exam Extremities Exam: Normal Inspection. absent: Calf Tenderness, Pedal Edema Additional comments: AV fistula in left arm, with continuos bruit and thrill - Neurological Exam Neurological Exam: Alert, Awake, Oriented x3 - Skin Skin Exam: Dry, Intact, Pallor Assessment and Plan - Assessment and Plan (Free Text) Assessment: 81 y/o M with PMHx of CKD on HD, s/p fall and small stable subdural hematoma, admitted to TCU for PT eval and treatment, now with new onset of productive cough, and bilateral pleural effusion more prominent in L/side. Plan: Cough, and white sputum -Febrile yesterday once, no leukocytosis -c/w Azithromycin PO daily. Consider DC on Thursday -Albuterol 0.083 % INH BID -Tessalon 100 mg PO TID PRN -Acetylcysteine BID -Respiratory therapy -Incentive spirometer -Pleural effusion B/L more evident L/side -Pulmonology consult appreciated. Dr. Barrow on board. Recommended IR evaluation for Thoracocentesis. 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 Cain. c/w HD -Sevelamer 800 mg PO BID Atypical left chest pain most likely musculoskeletal etiology -Resolved -Tylenol 650 mg Q8 PRN for pain Essential Hypertension c/w home med. Carvedilol 3.125 mg PO heart healthy diet Benign prostatic hyperplasia c/w home Tamsulosin 0.4 mg daily PO DVT Prophylaxis DVT - SCDs for now due to low platelet
[2016-09-22] MEDS: Acetylcysteine 10% 4 ML IH SCH (19:29)
--- NOTE | 2016-09-23 00:19 | CP.PCM.PN ---
Subjective - Date & Time of Evaluation Date of Evaluation: 09/22/16 Time of Evaluation: 16:00 - Subjective Subjective: SEEN ON RENAL F/U I CALLED HD CENTER TO LOWER EDW AND TO INCREASE TIME TO 3.5 HOURS MORE EXTENSIVE HD ROR PLEURAL AND KARON CARDIAL EFFUSION Objective - Vital Signs/Intake and Output Vital Signs (last 24 hours): Temp Pulse Resp BP Pulse Ox 96 F L 77 20 122/74 98 09/22/16 21:02 09/22/16 21:02 09/22/16 21:02 09/22/16 21:02 09/22/16 21:02 - Medications Medications: Current Medications Acetaminophen (Tylenol 325mg Tab) 650 mg PO Q6 PRN PRN Reason: Pain, moderate (4-7) Last Admin: 09/22/16 05:12 Dose: 650 mg Acetylcysteine (Mucomyst 10% 4ml) 2 ml IH RBID [facility] Last Admin: 09/22/16 19:29 Dose: 2 ml Albuterol Sulfate (Albuterol 0.083% Inhal Faina (2.5 Mg/3 Ml) Ud) 2.5 mg INH RQ4 PRN PRN Reason: Shortness of Breath Albuterol Sulfate (Albuterol 0.083% Inhal Faina (2.5 Mg/3 Ml) Ud) 2.5 mg INH RBID [facility] Last Admin: 09/22/16 19:29 Dose: 2.5 mg Ascorbic Acid (Vitamin C 500 Mg Tab) 500 mg PO DAILY [facility] Last Admin: 09/22/16 11:02 Dose: 500 mg Azithromycin (Zithromax) 250 mg PO DAILY [facility] Last Admin: 09/22/16 11:02 Dose: 250 mg Benzonatate (Tessalon Perles) 100 mg PO TID PRN PRN Reason: Cough Last Admin: 09/21/16 22:09 Dose: 100 mg Calamine (Calamine Lotion) 1 applic TOP BID PRN PRN Reason: Itching / Pruritus Carvedilol (Coreg) 3.125 mg PO SUTUTHSA@0900,2100 [facility] Last Admin: 09/21/16 22:10 Dose: 3.125 mg Duloxetine HCl (Cymbalta) 30 mg PO QAM [facility] Last Admin: 09/22/16 11:02 Dose: 30 mg Ergocalciferol (Drisdol 50,000 Intl Units Cap) 1 cap PO TUE [facility] Last Admin: 09/16/16 09:05 Dose: 1 cap Lidocaine (Lidoderm) 1 ea TD DAILY [facility] Last Admin: 09/22/16 11:03 Dose: Not Given Sevelamer Carbonate (Renvela) 0.8 gm PO BID [facility] Last Admin: 09/22/16 17:32 Dose: 0.8 gm Tamsulosin HCl (Flomax) 0.4 mg PO QPM [facility] Last Admin: 09/22/16 17:32 Dose: 0.4 mg Vitamin B Complex/Vit C/Folic Acid (Nephro-Faraz) 1 tab PO DAILY [facility] Last Admin: 09/22/16 11:02 Dose: 1 tab - Labs Labs: 09/21/16 05:30 09/21/16 05:30 PT 14.5 SECONDS (9.6-11.2) H 09/15/16 04:00 INR 1.39 (0.92-1.08) H 09/15/16 04:00 APTT 33.4 SECONDS (23.3-32.5) H 09/15/16 04:00
[2016-09-23 07:13] LABS: BASO % 0.2 % (0.0-2.0); EOS # 0.1 K/uL (0.0-0.7); EOS % 2.2 % (0.0-4.0); HEMATOCRIT 33.2 % (35.0-51.0); LYMPH # 0.5 K/uL (1.0-4.3); MEAN CELL VOLUME 99.7 fl (80.0-94.0); MEAN CORPUSCULAR HEMOGLOBIN 32.6 pg (27.0-31.0); MEAN CORPUSCULAR HGB CONC 32.7 g/dL (33.0-37.0); MEAN PLATELET VOLUME 9.3 fl (7.2-11.7); MONO # 0.6 K/uL (0.0-0.8); MONO % 11.8 % (0.0-10.0); NEUT # 3.6 K/uL (1.8-7.0); NEUT % 74.8 % (50.0-75.0); NRBC % 0.3 % (0.0-0.0); RED CELL DISTRIBUTION WIDTH 16.2 % (11.5-14.5); WHITE BLOOD COUNT 4.9 K/uL (4.8-10.8)
[2016-09-23 07:24] LABS: CALCIUM 9.2 mg/dL (8.4-10.2); POTASSIUM 3.8 MMOL/L (3.6-5.0)
[2016-09-23] MEDS: Acetylcysteine 10% 4 ML IH SCH ×3 (07:42→20:34)
[2016-09-23] MEDS: Albuterol 0.083% Inhal Sol (2.5 mg/3 mL) UD INH SCH ×2 (07:42→20:34)
--- NOTE | 2016-09-23 07:54 | CP.PCM.PN ---
Subjective - Date & Time of Evaluation Date of Evaluation: 09/23/16 Time of Evaluation: 07:51 - Subjective Subjective: Tentative for thoracentesis today with IR. Had one fever spike to 101.8 degrees on 09/21, none since. WBC's are 4.9, Hgb 10.9 and platetlets 80,000. Remains on PO azithromycin. Continues on regular schedule of hemodialysis. Call out to IR to see if platelet transfusion will be needed prior to procedure. Objective - Vital Signs/Intake and Output Vital Signs (last 24 hours): Temp Pulse Resp BP Pulse Ox 96 F L 77 20 122/74 98 09/22/16 21:02 09/22/16 21:02 09/22/16 21:02 09/22/16 21:02 09/22/16 21:02 - Medications Medications: Current Medications Acetaminophen (Tylenol 325mg Tab) 650 mg PO Q6 PRN PRN Reason: Pain, moderate (4-7) Last Admin: 09/22/16 05:12 Dose: 650 mg Acetylcysteine (Mucomyst 10% 4ml) 2 ml IH RBID [facility] [place] Last Admin: 09/23/16 07:43 Dose: 2 ml Albuterol Sulfate (Albuterol 0.083% Inhal Faina (2.5 Mg/3 Ml) Ud) 2.5 mg INH RQ4 PRN PRN Reason: Shortness of Breath Albuterol Sulfate (Albuterol 0.083% Inhal Faina (2.5 Mg/3 Ml) Ud) 2.5 mg INH RBID [facility] Last Admin: 09/23/16 07:42 Dose: 2.5 mg Ascorbic Acid (Vitamin C 500 Mg Tab) 500 mg PO DAILY [facility] Last Admin: 09/22/16 11:02 Dose: 500 mg Azithromycin (Zithromax) 250 mg PO DAILY [facility] [place] Last Admin: 09/22/16 11:02 Dose: 250 mg Benzonatate (Tessalon Perles) 100 mg PO TID PRN PRN Reason: Cough Last Admin: 09/23/16 04:45 Dose: 100 mg Calamine (Calamine Lotion) 1 applic TOP BID PRN PRN Reason: Itching / Pruritus Carvedilol (Coreg) 3.125 mg PO SUTUTHSA@0900,2100 [facility] [place] Last Admin: 09/21/16 22:10 Dose: 3.125 mg Duloxetine HCl (Cymbalta) 30 mg PO QAM [facility] Last Admin: 09/22/16 11:02 Dose: 30 mg Ergocalciferol (Drisdol 50,000 Intl Units Cap) 1 cap PO TUE [facility] Last Admin: 09/16/16 09:05 Dose: 1 cap Lidocaine (Lidoderm) 1 ea TD DAILY [facility] Last Admin: 09/22/16 11:03 Dose: Not Given Sevelamer Carbonate (Renvela) 0.8 gm PO BID [facility] Last Admin: 09/22/16 17:32 Dose: 0.8 gm Tamsulosin HCl (Flomax) 0.4 mg PO QPM [facility] Last Admin: 09/22/16 17:32 Dose: 0.4 mg Vitamin B Complex/Vit C/Folic Acid (Nephro-Faraz) 1 tab PO DAILY [facility] Last Admin: 09/22/16 11:02 Dose: 1 tab - Labs Labs: 09/23/16 06:57 09/23/16 06:57 PT 14.1 SECONDS (9.6-11.2) H 09/23/16 06:57 INR 1.36 (0.92-1.08) H 09/23/16 06:57 APTT 33.4 SECONDS (23.3-32.5) H 09/15/16 04:00 Assessment and Plan (1) Atelectasis Status: Acute (2) Musculoskeletal chest pain Status: Acute
[2016-09-23] MEDS: Multivitamin Vitamin B Complex (Nephro-Vite) Tab PO SCH (08:54)
[2016-09-23] MEDS: Sevelamer Carb 0.8 gm/Packet PO SCH ×2 (08:54→17:05)
[2016-09-23] MEDS: Ergocalciferol 50,000 Intl Units Cap PO SCH (08:55)
[2016-09-23] MEDS: Lidocaine 5% Patch TD SCH (08:55)
--- NOTE | 2016-09-23 10:14 | CP.PCM.CON ---
History of Present Illness - History of Present Illness History of Present Illness: This is a 81 yrs old mle who has a past medical h/o Pulmonary HTN, critcal aortic stenosis, CHF, CKD, and frequent falls probably secondary to the . He was admitted after he had a fall, and was brought to the ER where a ct of the head showed a small subdural hematoma. He has however been stable and did need to drain the hematoma. He also has a left pleural effusion for which he needs thoracentesis. Pt also has a h/o liver cirrgosis and with it hypersplenism and a low plstelet count. His count was 62,000, but today it is 80,000. I was called to see if pt can have a thoracentesis with that count. There is no ecchymosis or bleeding from any site. Past Patient History - Past Medical History & Family History Past Medical History?: Yes - Past Social History Smoking Status: Never Smoked Chewing Tobacco Use: No Cigar Use: No Alcohol: None Drugs: Denies - CARDIAC Hx Hypertension: Yes - PULMONARY Hx Respiratory Disorders: No - NEUROLOGICAL Hx Transient Ischemic Attacks (TIA): Yes - HEENT Hx Cataracts: Yes - RENAL Hx Dialysis: Yes Date of Last Dialysis Treatment: 09/14/16 Hx Renal Failure: Yes - ENDOCRINE/METABOLIC Hx Endocrine Disorders: No - HEMATOLOGICAL/ONCOLOGICAL Hx Blood Disorders: No - INTEGUMENTARY Hx Dermatological Problems: No - MUSCULOSKELETAL/RHEUMATOLOGICAL Hx Falls: Yes - GASTROINTESTINAL Hx Gastroesophageal Reflux: Yes Other/Comment: Bilateral inguinal hernias - GENITOURINARY/GYNECOLOGICAL Hx Prostate Problems: Yes Other/Comment: Turp in past - PSYCHIATRIC Hx Substance Use: No - SURGICAL HISTORY Hx Surgeries: Yes (Left arm AV shunt) Other/Comment: TUR-P many years ago. Cataract Sx - ANESTHESIA Hx Anesthesia: Yes Hx Anesthesia Reactions: No (None Known) Meds Allergies/Adverse Reactions: Allergies Allergy/AdvReac Type Severity Reaction Status Date / Time cortisone Allergy Mild hicups Verified 09/14/16 17:27 - Medications Medications: Current Medications Acetaminophen (Tylenol 325mg Tab) 650 mg PO Q6 PRN PRN Reason: Pain, moderate (4-7) Last Admin: 09/22/16 05:12 Dose: 650 mg Acetylcysteine (Mucomyst 10% 4ml) 2 ml IH RBID [facility] Last Admin: 09/23/16 07:43 Dose: 2 ml Albuterol Sulfate (Albuterol 0.083% Inhal Faina (2.5 Mg/3 Ml) Ud) 2.5 mg INH RQ4 PRN PRN Reason: Shortness of Breath Albuterol Sulfate (Albuterol 0.083% Inhal Faian (2.5 Mg/3 Ml) Ud) 2.5 mg INH RBID [facility] Last Admin: 09/23/16 07:42 Dose: 2.5 mg Ascorbic Acid (Vitamin C 500 Mg Tab) 500 mg PO DAILY [facility] Last Admin: 09/23/16 08:55 Dose: 500 mg Azithromycin (Zithromax) 250 mg PO DAILY [facility] Last Admin: 09/22/16 11:02 Dose: 250 mg Benzonatate (Tessalon Perles) 100 mg PO TID PRN PRN Reason: Cough Last Admin: 09/23/16 04:45 Dose: 100 mg Calamine (Calamine Lotion) 1 applic TOP BID PRN PRN Reason: Itching / Pruritus Carvedilol (Coreg) 3.125 mg PO SUTUTHSA@0900,2100 [facility] Last Admin: 09/23/16 08:54 Dose: 3.125 mg Duloxetine HCl (Cymbalta) 30 mg PO QAM [facility] Last Admin: 09/23/16 08:55 Dose: 30 mg Ergocalciferol (Drisdol 50,000 Intl Units Cap) 1 cap PO TUE [facility] Last Admin: 09/23/16 08:55 Dose: 1 cap Lidocaine (Lidoderm) 1 ea TD DAILY [facility] Last Admin: 09/23/16 08:55 Dose: 1 ea Sevelamer Carbonate (Renvela) 0.8 gm PO BID [facility] Last Admin: 09/23/16 08:54 Dose: 0.8 gm Tamsulosin HCl (Flomax) 0.4 mg PO QPM [facility] Last Admin: 09/22/16 17:32 Dose: 0.4 mg Vitamin B Complex/Vit C/Folic Acid (Nephro-Faraz) 1 tab PO DAILY [facility] Last Admin: 09/23/16 08:54 Dose: 1 tab Physical Exam - Additional Findings Additional findings: Physical exam; Alert well oriented in no distress neck; supple, no adenopathy Chest; Clear, no rales or rhonchi, decreased breath sound left lung field. Abd ; Soft, no mass, no h/s megaly Results - Vital Signs Recent Vital Signs: Last Vital Signs Temp 97.5 F L 09/23/16 08:30 Pulse 76 09/23/16 08:54 Resp 20 09/23/16 08:30 BP 137/81 09/23/16 08:54 Pulse Ox 100 09/23/16 08:30 - Labs Result Diagrams: 09/23/16 06:57 09/23/16 06:57 Labs: Laboratory Results - last 24 hr 09/23/16 09/23/16 09/23/16 06:57 06:57 06:57 WBC 4.9 D RBC 3.33 L Hgb 10.9 L Hct 33.2 L MCV 99.7 H MCH 32.6 H MCHC 32.7 L RDW 16.2 H Plt Count 80 L MPV 9.3 Neut % (Auto) 74.8 Lymph % (Auto) 11.0 L [place] % (Auto) 11.8 H Eos % (Auto) 2.2 Baso % (Auto) 0.2 Neut # 3.6 Lymph # 0.5 L [place] # 0.6 Eos # 0.1 Baso # 0.0 PT 14.1 H INR 1.36 H Sodium 137 Potassium 3.8 Chloride 96 L Carbon Dioxide 29 Anion Gap 16 BUN 32 H Creatinine 3.9 H Est GFR ( Amer) 18 Est GFR (Non-Af Amer) 15 Random Glucose 112 H Calcium 9.2 Assessment & Plan - Assessment and Plan (Free Text) Assessment: Impression; Thrombocytopenia, most probably secondary to 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 Plan: I feel 80,000 platelets nshould be OK for a thoracentesis. Would ck with the IR if he is ok with the 80,000.if not pt should be given plateles just prior to the procedure. - Date & Time Date: 09/23/16 Time: 10:25
--- NOTE | 2016-09-23 17:54 | CP.PCM.PN ---
<Bessie Oreilly - Last Filed: 09/23/16 17:51> Subjective - Date & Time of Evaluation Date of Evaluation: 09/23/16 Time of Evaluation: 08:50 - Subjective Subjective: Patient was seen and examined at bedside. Patient still with SOB, coughing associated with white sputum production. Denies CP, N/V, abdominal pain, dizziness or other complains at this evaluation. Objective - Vital Signs/Intake and Output Vital Signs (last 24 hours): Temp Pulse Resp BP Pulse Ox 98.1 F 64 20 120/70 96 09/23/16 16:37 09/23/16 16:37 09/23/16 16:37 09/23/16 16:37 09/23/16 16:37 - Medications Medications: Current Medications Acetaminophen (Tylenol 325mg Tab) 650 mg PO Q6 PRN PRN Reason: Pain, moderate (4-7) Last Admin: 09/22/16 05:12 Dose: 650 mg Acetylcysteine (Mucomyst 10% 4ml) 2 ml IH RBID [facility] Last Admin: 09/23/16 07:43 Dose: 2 ml Albuterol Sulfate (Albuterol 0.083% Inhal Faina (2.5 Mg/3 Ml) Ud) 2.5 mg INH RQ4 PRN PRN Reason: Shortness of Breath Albuterol Sulfate (Albuterol 0.083% Inhal Faina (2.5 Mg/3 Ml) Ud) 2.5 mg INH RBID [facility] Last Admin: 09/23/16 07:42 Dose: 2.5 mg Ascorbic Acid (Vitamin C 500 Mg Tab) 500 mg PO DAILY [facility] Last Admin: 09/23/16 08:55 Dose: 500 mg Azithromycin (Zithromax) 250 mg PO DAILY [facility] Last Admin: 09/23/16 11:10 Dose: 250 mg Benzonatate (Tessalon Perles) 100 mg PO TID PRN PRN Reason: Cough Last Admin: 09/23/16 04:45 Dose: 100 mg Calamine (Calamine Lotion) 1 applic TOP BID PRN PRN Reason: Itching / Pruritus Carvedilol (Coreg) 3.125 mg PO SUTUTHSA@0900,2100 [facility] Last Admin: 09/23/16 08:54 Dose: 3.125 mg Duloxetine HCl (Cymbalta) 30 mg PO QAM [facility] Last Admin: 09/23/16 08:55 Dose: 30 mg Ergocalciferol (Drisdol 50,000 Intl Units Cap) 1 cap PO TUE [facility] Last Admin: 09/23/16 08:55 Dose: 1 cap Lidocaine (Lidoderm) 1 ea TD DAILY [facility] Last Admin: 09/23/16 08:55 Dose: 1 ea Sevelamer Carbonate (Renvela) 0.8 gm PO BID [facility] Last Admin: 09/23/16 17:05 Dose: 0.8 gm Tamsulosin HCl (Flomax) 0.4 mg PO QPM [facility] Last Admin: 09/23/16 17:05 Dose: 0.4 mg Vitamin B Complex/Vit C/Folic Acid (Nephro-Faraz) 1 tab PO DAILY [facility] Last Admin: 09/23/16 08:54 Dose: 1 tab - Labs Labs: 09/23/16 06:57 09/23/16 06:57 PT 14.1 SECONDS (9.6-11.2) H 09/23/16 06:57 INR 1.36 (0.92-1.08) H 09/23/16 06:57 APTT 33.4 SECONDS (23.3-32.5) H 09/15/16 04:00 - Additional Findings Additional findings: Constitutional Appears: Non-toxic, No Acute Distress - ENT Exam ENT Exam: Mucous Membranes Moist - Respiratory Exam Respiratory Exam: Decreased Breath Sounds (decreased breath sounds to auscultation of left lower lobe), Rales (diffuse, fine crackles in right lower lung. ), NORMAL BREATHING PATTERN - Cardiovascular Exam Cardiovascular Exam: REGULAR RHYTHM, +S1, +S2 Additional comments: Murmur - GI/Abdominal Exam GI & Abdominal Exam: Soft, Normal Bowel Sounds. absent: Distended, Guarding, Rigid, Tenderness - Extremities Exam Extremities Exam: Normal Inspection. absent: Calf Tenderness, Pedal Edema Additional comments: AV fistula in left arm, with continuos bruit and thrill - Neurological Exam Neurological Exam: Alert, Awake, Oriented x3 - Skin Skin Exam: Dry, Intact, Pallor Assessment and Plan - Assessment and Plan (Free Text) Assessment: 81 y/o M with PMHx of CKD on HD, s/p fall and small stable subdural hematoma, admitted to TCU for PT eval and treatment, now with new onset of productive cough, and bilateral pleural effusion more prominent in L/side. Plan: Cough, and white sputum -Afebrile, no leukocytosis -c/w Azithromycin PO daily. Consider DC on Thursday -Albuterol 0.083 % INH BID -Tessalon 100 mg PO TID PRN -Acetylcysteine BID -Respiratory therapy -Incentive spirometer -Pleural effusion B/L more evident L/side -IR evaluation for Thoracocentesis today. -Hematology consult before possible thoracentesis, due to thrombocytopenia. 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 Cain. c/w HD -Sevelamer 800 mg PO BID Atypical left chest pain most likely musculoskeletal etiology -Resolved -Tylenol 650 mg Q8 PRN for pain Essential Hypertension c/w home med. Carvedilol 3.125 mg PO heart healthy diet Benign prostatic hyperplasia c/w home Tamsulosin 0.4 mg daily PO DVT Prophylaxis DVT - SCDs for now due to low platelet <Delmar Ayers - Last Filed: 09/24/16 06:55> Objective - Vital Signs/Intake and Output Vital Signs (last 24 hours): Temp Pulse Resp BP Pulse Ox 96 F L 68 20 124/72 98 09/23/16 20:30 09/23/16 21:37 09/23/16 20:30 09/23/16 21:37 09/23/16 20:30 - Medications Medications: Current Medications Acetaminophen (Tylenol 325mg Tab) 650 mg PO Q6 PRN PRN Reason: Pain, moderate (4-7) Last Admin: 09/22/16 05:12 Dose: 650 mg Acetylcysteine (Mucomyst 10% 4ml) 2 ml IH RBID [facility] Last Admin: 09/23/16 20:34 Dose: 2 ml Albuterol Sulfate (Albuterol 0.083% Inhal Faina (2.5 Mg/3 Ml) Ud) 2.5 mg INH RQ4 PRN PRN Reason: Shortness of Breath Albuterol Sulfate (Albuterol 0.083% Inhal Faina (2.5 Mg/3 Ml) Ud) 2.5 mg INH RBID [facility] Last Admin: 09/23/16 20:34 Dose: 2.5 mg Ascorbic Acid (Vitamin C 500 Mg Tab) 500 mg PO DAILY [facility] Last Admin: 09/23/16 08:55 Dose: 500 mg Azithromycin (Zithromax) 250 mg PO DAILY [facility] Last Admin: 09/23/16 11:10 Dose: 250 mg Benzonatate (Tessalon Perles) 100 mg PO TID PRN PRN Reason: Cough Last Admin: 09/23/16 04:45 Dose: 100 mg Calamine (Calamine Lotion) 1 applic TOP BID PRN PRN Reason: Itching / Pruritus Carvedilol (Coreg) 3.125 mg PO SUTUTHSA@0900,2100 [facility] Last Admin: 09/23/16 21:37 Dose: 3.125 mg Duloxetine HCl (Cymbalta) 30 mg PO QAM [facility] Last Admin: 09/23/16 08:55 Dose: 30 mg Ergocalciferol (Drisdol 50,000 Intl Units Cap) 1 cap PO TUE [facility] Last Admin: 09/23/16 08:55 Dose: 1 cap Lidocaine (Lidoderm) 1 ea TD DAILY [facility] Last Admin: 09/23/16 08:55 Dose: 1 ea Sevelamer Carbonate (Renvela) 0.8 gm PO BID [facility] Last Admin: 09/23/16 17:05 Dose: 0.8 gm Tamsulosin HCl (Flomax) 0.4 mg PO QPM [facility] Last Admin: 09/23/16 17:05 Dose: 0.4 mg Vitamin B Complex/Vit C/Folic Acid (Nephro-Faraz) 1 tab PO DAILY [facility] Last Admin: 09/23/16 08:54 Dose: 1 tab - Labs Labs: 09/24/16 05:24 09/24/16 05:24 PT 14.1 SECONDS (9.6-11.2) H 09/23/16 06:57 INR 1.36 (0.92-1.08) H 09/23/16 06:57 APTT 33.4 SECONDS (23.3-32.5) H 09/15/16 04:00 Attending/Attestation - Attestation I have personally seen and examined this patient.: Yes I have fully participated in the care of the patient.: Yes I have reviewed all pertinent clinical information, including history, physical exam and plan: Yes
[2016-09-24 05:54] LABS: HEMATOCRIT 32.1 % (35.0-51.0); MEAN CELL VOLUME 99.8 fl (80.0-94.0); MEAN CORPUSCULAR HEMOGLOBIN 32.4 pg (27.0-31.0); MEAN CORPUSCULAR HGB CONC 32.5 g/dL (33.0-37.0); RED CELL DISTRIBUTION WIDTH 16.2 % (11.5-14.5); WHITE BLOOD COUNT 4.8 K/uL (4.8-10.8)
[2016-09-24 06:21] LABS: ALB/GLOB RATIO 0.9 (1.0-2.1); BILIRUBIN,TOTAL 1.8 mg/dl (0.2-1.3); POTASSIUM 4.4 MMOL/L (3.6-5.0); TOTAL PROTEIN 7.8 G/DL (6.3-8.2)
[2016-09-24] MEDS: Albuterol 0.083% Inhal Sol (2.5 mg/3 mL) UD INH SCH ×2 (07:59→19:46)
[2016-09-24] MEDS: Sevelamer Carb 0.8 gm/Packet PO SCH ×2 (08:16→17:17)
[2016-09-24] MEDS: Acetylcysteine 10% 4 ML IH SCH ×2 (08:17→19:47)
--- NOTE | 2016-09-24 09:34 | CP.PCM.PN ---
Subjective - Date & Time of Evaluation Date of Evaluation: 09/24/16 Time of Evaluation: 09:28 - Subjective Subjective: Pt had the thoracentesis with the platelet count 80,000. There was no bleeding. I feel pt's thrombocytopenia is secondary to cirrhosis. If he needs a major procedure, he may need transfusions, but otherwise these pts do well with counts as low as 45-50K. Will sign off case. Please recall if needed Objective - Vital Signs/Intake and Output Vital Signs (last 24 hours): Temp Pulse Resp BP Pulse Ox 96 F L 68 20 124/72 98 09/23/16 20:30 09/23/16 21:37 09/23/16 20:30 09/23/16 21:37 09/23/16 20:30 - Medications Medications: Current Medications Acetaminophen (Tylenol 325mg Tab) 650 mg PO Q6 PRN PRN Reason: Pain, moderate (4-7) Last Admin: 09/22/16 05:12 Dose: 650 mg Acetylcysteine (Mucomyst 10% 4ml) 2 ml IH RBID [facility] Last Admin: 09/24/16 08:17 Dose: Not Given Albuterol Sulfate (Albuterol 0.083% Inhal Faina (2.5 Mg/3 Ml) Ud) 2.5 mg INH RQ4 PRN PRN Reason: Shortness of Breath Albuterol Sulfate (Albuterol 0.083% Inhal Faina (2.5 Mg/3 Ml) Ud) 2.5 mg INH RBID [facility] Last Admin: 09/24/16 07:59 Dose: Not Given Ascorbic Acid (Vitamin C 500 Mg Tab) 500 mg PO DAILY [facility] Last Admin: 09/23/16 08:55 Dose: 500 mg Azithromycin (Zithromax) 250 mg PO DAILY [facility] Last Admin: 09/23/16 11:10 Dose: 250 mg Benzonatate (Tessalon Perles) 100 mg PO TID PRN PRN Reason: Cough Last Admin: 09/23/16 04:45 Dose: 100 mg Calamine (Calamine Lotion) 1 applic TOP BID PRN PRN Reason: Itching / Pruritus Carvedilol (Coreg) 3.125 mg PO SUTUTHSA@0900,2100 [facility] Last Admin: 09/23/16 21:37 Dose: 3.125 mg Duloxetine HCl (Cymbalta) 30 mg PO QAM [facility] Last Admin: 09/23/16 08:55 Dose: 30 mg Ergocalciferol (Drisdol 50,000 Intl Units Cap) 1 cap PO TUE [facility] Last Admin: 09/23/16 08:55 Dose: 1 cap Lidocaine (Lidoderm) 1 ea TD DAILY [facility] Last Admin: 09/23/16 08:55 Dose: 1 ea Sevelamer Carbonate (Renvela) 0.8 gm PO BID [facility] Last Admin: 09/24/16 08:16 Dose: Not Given Tamsulosin HCl (Flomax) 0.4 mg PO QPM [facility] Last Admin: 09/23/16 17:05 Dose: 0.4 mg Vitamin B Complex/Vit C/Folic Acid (Nephro-Faraz) 1 tab PO DAILY [facility] Last Admin: 09/23/16 08:54 Dose: 1 tab - Labs Labs: 09/24/16 05:24 09/24/16 05:24 PT 14.1 SECONDS (9.6-11.2) H 09/23/16 06:57 INR 1.36 (0.92-1.08) H 09/23/16 06:57 APTT 33.4 SECONDS (23.3-32.5) H 09/15/16 04:00
--- NOTE | 2016-09-24 17:04 | CP.PCM.PN ---
<Bessie Oreilly - Last Filed: 09/24/16 17:02> Subjective - Date & Time of Evaluation Date of Evaluation: 09/24/16 Time of Evaluation: 08:55 - Subjective Subjective: Patient was seen and examined at bedside. Patient reports SOB has improved after therapeutic thoracentesis. Still complaining of cough with white sputum production, however improving. Denies chest pain, nausea, vomiting, abdominal pain, dizziness. Objective - Vital Signs/Intake and Output Vital Signs (last 24 hours): Temp Pulse Resp BP Pulse Ox 97.9 F 70 20 126/71 98 09/24/16 16:36 09/24/16 16:36 09/24/16 16:36 09/24/16 16:36 09/24/16 16:36 - Medications Medications: Current Medications Acetaminophen (Tylenol 325mg Tab) 650 mg PO Q6 PRN PRN Reason: Pain, moderate (4-7) Last Admin: 09/22/16 05:12 Dose: 650 mg Acetylcysteine (Mucomyst 10% 4ml) 2 ml IH RBID [facility] Last Admin: 09/24/16 08:17 Dose: Not Given Albuterol Sulfate (Albuterol 0.083% Inhal Faina (2.5 Mg/3 Ml) Ud) 2.5 mg INH RQ4 PRN PRN Reason: Shortness of Breath Albuterol Sulfate (Albuterol 0.083% Inhal Faina (2.5 Mg/3 Ml) Ud) 2.5 mg INH RBID [facility] Last Admin: 09/24/16 07:59 Dose: Not Given Ascorbic Acid (Vitamin C 500 Mg Tab) 500 mg PO DAILY [facility] Last Admin: 09/23/16 08:55 Dose: 500 mg Azithromycin (Zithromax) 250 mg PO DAILY [facility] Last Admin: 09/23/16 11:10 Dose: 250 mg Benzonatate (Tessalon Perles) 100 mg PO TID PRN PRN Reason: Cough Last Admin: 09/23/16 04:45 Dose: 100 mg Calamine (Calamine Lotion) 1 applic TOP BID PRN PRN Reason: Itching / Pruritus Carvedilol (Coreg) 3.125 mg PO SUTUTHSA@0900,2100 [facility] Last Admin: 09/23/16 21:37 Dose: 3.125 mg Duloxetine HCl (Cymbalta) 30 mg PO QAM [facility] Last Admin: 09/23/16 08:55 Dose: 30 mg Ergocalciferol (Drisdol 50,000 Intl Units Cap) 1 cap PO TUE [facility] Last Admin: 09/23/16 08:55 Dose: 1 cap Lidocaine (Lidoderm) 1 ea TD DAILY [facility] Last Admin: 09/23/16 08:55 Dose: 1 ea Sevelamer Carbonate (Renvela) 0.8 gm PO BID [facility] Last Admin: 09/24/16 08:16 Dose: Not Given Tamsulosin HCl (Flomax) 0.4 mg PO QPM [facility] Last Admin: 09/23/16 17:05 Dose: 0.4 mg Vitamin B Complex/Vit C/Folic Acid (Nephro-Faraz) 1 tab PO DAILY [facility] Last Admin: 09/23/16 08:54 Dose: 1 tab - Labs Labs: 09/24/16 05:24 09/24/16 05:24 PT 14.1 SECONDS (9.6-11.2) H 09/23/16 06:57 INR 1.36 (0.92-1.08) H 09/23/16 06:57 APTT 33.4 SECONDS (23.3-32.5) H 09/15/16 04:00 - Additional Findings Additional findings: Constitutional Appears: Non-toxic, No Acute Distress - ENT Exam ENT Exam: Mucous Membranes Moist - Respiratory Exam Respiratory Exam: clear lung to auscultation in upper and middle lobes bilateral , mild decreased breath sound in lower lobes. - Cardiovascular Exam Cardiovascular Exam: REGULAR RHYTHM, +S1, +S2 Additional comments: Murmur - GI/Abdominal Exam GI & Abdominal Exam: Soft, Normal Bowel Sounds. absent: Distended, Guarding, Rigid, Tenderness - Extremities Exam Extremities Exam: Mild lower extremities edema. absent: Calf Tenderness Additional comments: AV fistula in left arm, with continuos bruit and thrill - Neurological Exam Neurological Exam: Alert, Awake, Oriented x3 - Skin Skin Exam: Dry, Intact, Pallor Assessment and Plan - Assessment and Plan (Free Text) Assessment: 81 y/o M with PMHx of CKD on HD, s/p fall and small stable subdural hematoma, admitted to TCU for PT eval and treatment, now s/p therapeutic thoracentesis due to pleural effusion. Plan: Cough, sputum production Improving -Afebrile, no leukocytosis -DC Azithromycin after thoracentesis as per Dr. Barrow recommendations -Albuterol 0.083 % INH BID -Tessalon 100 mg PO TID PRN -Acetylcysteine BID -Pleural effusion B/L more evident L/side -S/P thoracentesis by IR -As pulmunology patient is cleared to be discharge home in no antibiotics or diuretics Pancytopenia -Chest CT showed ascitis with evidence of cirrhosis -Chronic liver disease could explained the pancytopenia, but other causes can not be r/o Hematology consult appreciated. Dr. Esthela Hunter. 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 CHF chronic, systolic -Cardio on board(Dr Hunter) As per Cardiology no intervention needed as this time. 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 Cain. c/w HD W F -Sevelamer 800 mg PO BID Nephology, Dr. Cain cleared patient to be discharge home. Nephro increased HD time, and lower EDW. Atypical left chest pain most likely musculoskeletal etiology -Resolved -Tylenol 650 mg Q8 PRN for pain Essential Hypertension c/w home med. Carvedilol 3.125 mg PO heart healthy diet Benign prostatic hyperplasia c/w home Tamsulosin 0.4 mg daily PO DVT Prophylaxis DVT - SCDs for now due to low platelet <Delmar Ayers - Last Filed: 09/26/16 06:59> Objective - Vital Signs/Intake and Output Vital Signs (last 24 hours): Temp Pulse Resp BP Pulse Ox 97.8 F 77 20 137/78 99 09/25/16 08:26 09/25/16 08:26 09/25/16 08:26 09/25/16 08:26 09/25/16 08:26 - Labs Labs: 09/24/16 05:24 09/24/16 05:24 PT 14.1 SECONDS (9.6-11.2) H 09/23/16 06:57 INR 1.36 (0.92-1.08) H 09/23/16 06:57 APTT 33.4 SECONDS (23.3-32.5) H 09/15/16 04:00 Attending/Attestation - Attestation I have personally seen and examined this patient.: Yes I have fully participated in the care of the patient.: Yes I have reviewed all pertinent clinical information, including history, physical exam and plan: Yes
[2016-09-24] MEDS: Lidocaine 5% Patch TD SCH (17:17)
[2016-09-24] MEDS: Multivitamin Vitamin B Complex (Nephro-Vite) Tab PO SCH (17:17)
[2016-09-24 21:42] VITALS: O2SAT 99
--- NOTE | 2016-09-25 06:41 | CP.PCM.PN ---
Subjective - Date & Time of Evaluation Date of Evaluation: 09/24/16 Time of Evaluation: 13:00 - Subjective Subjective: SEEN ON RENAL F/U FEELS MUCH BETTER S/P L PLEURAL TAPPING ..800 CC REMOVED FEELS BETTER AFTER REMOVING THE P FLUID D/W MED RESIDENT Objective - Vital Signs/Intake and Output Vital Signs (last 24 hours): Temp Pulse Resp BP Pulse Ox 98.1 F 78 20 125/80 99 09/24/16 21:41 09/24/16 21:41 09/24/16 21:41 09/24/16 21:41 09/24/16 21:41 - Medications Medications: Current Medications Acetaminophen (Tylenol 325mg Tab) 650 mg PO Q6 PRN PRN Reason: Pain, moderate (4-7) Last Admin: 09/22/16 05:12 Dose: 650 mg Acetylcysteine (Mucomyst 10% 4ml) 2 ml IH RBID [facility] Last Admin: 09/24/16 19:47 Dose: 2 ml Albuterol Sulfate (Albuterol 0.083% Inhal Faina (2.5 Mg/3 Ml) Ud) 2.5 mg INH RQ4 PRN PRN Reason: Shortness of Breath Albuterol Sulfate (Albuterol 0.083% Inhal Faina (2.5 Mg/3 Ml) Ud) 2.5 mg INH RBID [facility] Last Admin: 09/24/16 19:46 Dose: 2.5 mg Ascorbic Acid (Vitamin C 500 Mg Tab) 500 mg PO DAILY [facility] Last Admin: 09/24/16 17:17 Dose: 500 mg Benzonatate (Tessalon Perles) 100 mg PO TID PRN PRN Reason: Cough Last Admin: 09/24/16 17:17 Dose: 100 mg Calamine (Calamine Lotion) 1 applic TOP BID PRN PRN Reason: Itching / Pruritus Carvedilol (Coreg) 3.125 mg PO SUTUTHSA@0900,2100 [facility] Last Admin: 09/23/16 21:37 Dose: 3.125 mg Duloxetine HCl (Cymbalta) 30 mg PO QAM [facility] Last Admin: 09/24/16 17:16 Dose: 30 mg Ergocalciferol (Drisdol 50,000 Intl Units Cap) 1 cap PO TUE [facility] Last Admin: 09/23/16 08:55 Dose: 1 cap Lidocaine (Lidoderm) 1 ea TD DAILY [facility] Last Admin: 09/24/16 17:17 Dose: Not Given Sevelamer Carbonate (Renvela) 0.8 gm PO BID [facility] Last Admin: 09/24/16 17:17 Dose: 0.8 gm Tamsulosin HCl (Flomax) 0.4 mg PO QPM [facility] Last Admin: 09/24/16 17:16 Dose: 0.4 mg Vitamin B Complex/Vit C/Folic Acid (Nephro-Faraz) 1 tab PO DAILY [facility] Last Admin: 09/24/16 17:17 Dose: 1 tab - Labs Labs: 09/24/16 05:24 09/24/16 05:24 PT 14.1 SECONDS (9.6-11.2) H 09/23/16 06:57 INR 1.36 (0.92-1.08) H 09/23/16 06:57 APTT 33.4 SECONDS (23.3-32.5) H 09/15/16 04:00 Assessment and Plan - Assessment and Plan (Free Text) Assessment: ESRD ON HD W AT [facility] HIS TIME WAS INCREASED TO 3.5 HOURS HIS EDW WAS DECREASED AND WILL CONTINUE TO DECREASE IT SLOWLY AND GTADUALLY TOLERATED MULTIPLE CO MORBIDITIES C/O CURRENT CARE STABLE RENALLY FOR D/C
[2016-09-25] MEDS: Acetylcysteine 10% 4 ML IH SCH ×2 (07:36→07:39)
[2016-09-25] MEDS: Albuterol 0.083% Inhal Sol (2.5 mg/3 mL) UD INH SCH (07:39)
[2016-09-25] MEDS: Sevelamer Carb 0.8 gm/Packet PO SCH (08:13)
[2016-09-25] MEDS: Multivitamin Vitamin B Complex (Nephro-Vite) Tab PO SCH (08:14)
[2016-09-25 08:15] VITALS: BP 137/78; PULSE 77
[2016-09-25] MEDS: Lidocaine 5% Patch TD SCH (08:16)
[2016-09-25 08:28] VITALS: TEMP 97.8
--- NOTE | 2016-09-25 19:01 | CP.PCM.DIS ---
<Kiley Josue - Last Filed: 09/25/16 19:47> Provider - Provider Date of Admission: 09/14/16 17:52 Attending physician: Jason Brand MD Time Spent in preparation of Discharge (in minutes): 30 Hospital Course - Lab Results Lab Results: Most Recent Lab Values WBC 4.8 K/uL (4.8-10.8) 09/24/16 05:24 RBC 3.22 Mil/uL (4.40-5.90) L 09/24/16 05:24 Hgb 10.4 g/dL (12.0-18.0) L 09/24/16 05:24 Hct 32.1 % (35.0-51.0) L 09/24/16 05:24 MCV 99.8 fl (80.0-94.0) H 09/24/16 05:24 MCH 32.4 pg (27.0-31.0) H 09/24/16 05:24 MCHC 32.5 g/dL (33.0-37.0) L 09/24/16 05:24 RDW 16.2 % (11.5-14.5) H 09/24/16 05:24 Plt Count 78 K/uL (130-400) L 09/24/16 05:24 MPV 9.3 fl (7.2-11.7) 09/23/16 06:57 Neut % (Auto) 74.8 % (50.0-75.0) 09/23/16 06:57 Lymph % (Auto) 11.0 % (20.0-40.0) L 09/23/16 06:57 Morrow % (Auto) 11.8 % (0.0-10.0) H 09/23/16 06:57 Eos % (Auto) 2.2 % (0.0-4.0) 09/23/16 06:57 Baso % (Auto) 0.2 % (0.0-2.0) 09/23/16 06:57 Neut # 3.6 K/uL (1.8-7.0) 09/23/16 06:57 Lymph # 0.5 K/uL (1.0-4.3) L 09/23/16 06:57 Morrow # 0.6 K/uL (0.0-0.8) 09/23/16 06:57 Eos # 0.1 K/uL (0.0-0.7) 09/23/16 06:57 Baso # 0.0 K/uL (0.0-0.2) 09/23/16 06:57 PT 14.1 SECONDS (9.6-11.2) H 09/23/16 06:57 INR 1.36 (0.92-1.08) H 09/23/16 06:57 APTT 33.4 SECONDS (23.3-32.5) H 09/15/16 04:00 Sodium 135 mmol/l (132-148) 09/24/16 05:24 Potassium 4.4 MMOL/L (3.6-5.0) 09/24/16 05:24 Chloride 94 mmol/L (98-107) L 09/24/16 05:24 Carbon Dioxide 27 mmol/L (22-30) 09/24/16 05:24 Anion Gap 18 (10-20) 09/24/16 05:24 BUN 44 mg/dl (9-20) H 09/24/16 05:24 Creatinine 4.7 mg/dL (0.8-1.5) H 09/24/16 05:24 Est GFR ( Amer) 15 09/24/16 05:24 Est GFR (Non-Af Amer) 12 09/24/16 05:24 Random Glucose 95 mg/dL (75-110) 09/24/16 05:24 Calcium 9.0 mg/dL (8.4-10.2) 09/24/16 05:24 Total Bilirubin 1.8 mg/dl (0.2-1.3) H 09/24/16 05:24 AST 28 U/L (17-59) 09/24/16 05:24 ALT 23 U/L (21-72) 09/24/16 05:24 Alkaline Phosphatase 114 U/L (38-126) 09/24/16 05:24 Total Protein 7.8 G/DL (6.3-8.2) 09/24/16 05:24 Albumin 3.7 g/dL (3.5-5.0) 09/24/16 05:24 Globulin 4.2 gm/dL (2.2-3.9) H 09/24/16 05:24 Albumin/Globulin Ratio 0.9 (1.0-2.1) L 09/24/16 05:24 - Hospital Course Hospital Course: 81 y/o M with PMhx of ESRD on HD MWF and HTN, admitted to hosp s/p fall. Patient found to have L/eye hematoma and subdural hematoma on R/temporal area, seen by neuro sx and no intervention was recommended. During admission HD was continued, pt evaluated by Nephro(Dr Cain). Head CT repeated 2 days after admission showed no significant interval change and patient was transferred to TCU for PT. Patient s/p thoracocentesis, drained 850cc of yellow/green fluid, no further intervention as per pulmonary. Today patient seen and no complaints of cough or dyspnea, lying flat in bed resting comfortably. Denies SOB, chills, nausea, vomiting, abdominal pain, diarrhea. - Date & Time of H&P Date of H&P: 09/15/16 Time of H&P: 10:34 Discharge Exam - Head Exam Head Exam: NORMAL INSPECTION - Eye Exam Eye Exam: Normal appearance - ENT Exam ENT Exam: Mucous Membranes Moist - Respiratory Exam Respiratory Exam: NORMAL BREATHING PATTERN, UNREMARKABLE - Cardiovascular Exam Cardiovascular Exam: REGULAR RHYTHM, +S1, +S2 - GI/Abdominal Exam GI & Abdominal Exam: Normal Bowel Sounds, Unremarkable - Neurological Exam Neurological exam: Alert, CN II-XII Intact, Oriented x3 - Psychiatric Exam Psychiatric exam: Normal Affect, Normal Mood - Skin Skin Exam: Dry, Intact, Normal Color Discharge Plan - Follow Up Plan Condition: GOOD Disposition: HOME/ ROUTINE Instructions: Dialysis Diet (DC), Fall Prevention for Older Adults (GEN), End Stage Kidney Disease (DC) Additional Instructions: Patient to follow up with Dr. Ayers. Continue HD as scheduled MWF. Referrals: Delmar Ayers MD [Staff Provider] - <Delmar Ayers - Last Filed: 09/26/16 07:00> Provider - Provider Date of Admission: 09/14/16 17:52 Attending physician: Jason Brand MD Hospital Course - Lab Results Lab Results: Most Recent Lab Values WBC 4.8 K/uL (4.8-10.8) 09/24/16 05:24 RBC 3.22 Mil/uL (4.40-5.90) L 09/24/16 05:24 Hgb 10.4 g/dL (12.0-18.0) L 09/24/16 05:24 Hct 32.1 % (35.0-51.0) L 09/24/16 05:24 MCV 99.8 fl (80.0-94.0) H 09/24/16 05:24 MCH 32.4 pg (27.0-31.0) H 09/24/16 05:24 MCHC 32.5 g/dL (33.0-37.0) L 09/24/16 05:24 RDW 16.2 % (11.5-14.5) H 09/24/16 05:24 Plt Count 78 K/uL (130-400) L 09/24/16 05:24 MPV 9.3 fl (7.2-11.7) 09/23/16 06:57 Neut % (Auto) 74.8 % (50.0-75.0) 09/23/16 06:57 Lymph % (Auto) 11.0 % (20.0-40.0) L 09/23/16 06:57 Morrow % (Auto) 11.8 % (0.0-10.0) H 09/23/16 06:57 Eos % (Auto) 2.2 % (0.0-4.0) 09/23/16 06:57 Baso % (Auto) 0.2 % (0.0-2.0) 09/23/16 06:57 Neut # 3.6 K/uL (1.8-7.0) 09/23/16 06:57 Lymph # 0.5 K/uL (1.0-4.3) L 09/23/16 06:57 Morrow # 0.6 K/uL (0.0-0.8) 09/23/16 06:57 Eos # 0.1 K/uL (0.0-0.7) 09/23/16 06:57 Baso # 0.0 K/uL (0.0-0.2) 09/23/16 06:57 PT 14.1 SECONDS (9.6-11.2) H 09/23/16 06:57 INR 1.36 (0.92-1.08) H 09/23/16 06:57 APTT 33.4 SECONDS (23.3-32.5) H 09/15/16 04:00 Sodium 135 mmol/l (132-148) 09/24/16 05:24 Potassium 4.4 MMOL/L (3.6-5.0) 09/24/16 05:24 Chloride 94 mmol/L (98-107) L 09/24/16 05:24 Carbon Dioxide 27 mmol/L (22-30) 09/24/16 05:24 Anion Gap 18 (10-20) 09/24/16 05:24 BUN 44 mg/dl (9-20) H 09/24/16 05:24 Creatinine 4.7 mg/dL (0.8-1.5) H 09/24/16 05:24 Est GFR ( Amer) 15 09/24/16 05:24 Est GFR (Non-Af Amer) 12 09/24/16 05:24 Random Glucose 95 mg/dL (75-110) 09/24/16 05:24 Calcium 9.0 mg/dL (8.4-10.2) 09/24/16 05:24 Total Bilirubin 1.8 mg/dl (0.2-1.3) H 09/24/16 05:24 AST 28 U/L (17-59) 09/24/16 05:24 ALT 23 U/L (21-72) 09/24/16 05:24 Alkaline Phosphatase 114 U/L (38-126) 09/24/16 05:24 Total Protein 7.8 G/DL (6.3-8.2) 09/24/16 05:24 Albumin 3.7 g/dL (3.5-5.0) 09/24/16 05:24 Globulin 4.2 gm/dL (2.2-3.9) H 09/24/16 05:24 Albumin/Globulin Ratio 0.9 (1.0-2.1) L 09/24/16 05:24 Attending/Attestation - Attestation I have personally seen and examined this patient.: Yes I have fully participated in the care of the patient.: Yes I have reviewed all pertinent clinical information, including history, physical exam and plan: Yes
== END 2016-09-25 14:22 | disposition home health service (06) | DRG 91 ==
LOC: H.TCU 17:52
PROVIDERS: ADMIT Family Medicine; ATTEND Family Medicine
PROC: F07Z9FZ Gait Training/Functional Ambulation Treatment using Assistive, Adaptive, Supportive or Protective Equipment (ICD-10-PCS; principal; 2016-09-14)
PROC: 5A1D60Z (ICD-10-PCS; 2016-09-15)
PROC: F08Z4FZ Home Management Treatment using Assistive, Adaptive, Supportive or Protective Equipment (ICD-10-PCS; 2016-09-16)
PROC: 0W9B3ZZ Drainage of Left Pleural Cavity, Percutaneous Approach (ICD-10-PCS; 2016-09-23)
DX: S06.5X0S Traumatic subdural hemorrhage without loss of consciousness, sequela (principal); N18.6 End stage renal disease; I13.2 Hypertensive heart and chronic kidney disease with heart failure and with stage 5 chronic kidney disease, or end stage renal disease; D61.818 Other pancytopenia; J91.8 Pleural effusion in other conditions classified elsewhere; I27.2 Other secondary pulmonary hypertension; F03.90 Unspecified dementia, unspecified severity, without behavioral disturbance, psychotic disturbance, mood disturbance, and anxiety; D69.59 Other secondary thrombocytopenia; J98.11 Atelectasis; I50.22 Chronic systolic (congestive) heart failure; D63.1 Anemia in chronic kidney disease; D73.1 Hypersplenism; K21.9 Gastro-esophageal reflux disease without esophagitis; R07.89 Other chest pain; I35.0 Nonrheumatic aortic (valve) stenosis; K74.60 Unspecified cirrhosis of liver; N40.0 Benign prostatic hyperplasia without lower urinary tract symptoms; Z99.2 Dependence on renal dialysis; W19.XXXS Unspecified fall, sequela; Z86.73 Personal history of transient ischemic attack (TIA), and cerebral infarction without residual deficits; Z91.81 History of falling

== ENCOUNTER 2016-09-23 10:52 | Day surgery (SDC) | payer MEDICARE, OTHER ==
[2016-09-23] MEDS ORDERED: Lidocaine 1% Inj (20ml) ONE (12:12)
--- NOTE | 2016-09-23 12:20 | CP.SDSHP ---
Same Day Surgery H & P - History Proposed Procedure: US guided thoracentesis. Pre-Op Diagnosis: PLueral effusion - Allergies Allergies: Allergies cortisone Allergy (Mild, Verified 09/14/16 17:27) hicups - Physical Exam Vital Signs: Vital Signs 09/23/16 09/23/16 11:20 11:33 Temperature 97.5 F L Pulse Rate 59 L 59 L Respiratory 20 Rate Blood Pressure 115/67 O2 Sat by Pulse 95 Oximetry Mental Status: Alert & Oriented x3 Neuro: WNL Heart: WNL - Impression Impression: Pt with pleural effusion referred for LEFT thoracentesis. Plan US guided Left thoracentesis. Pt. Evaluated Today:Candidate for Anesthesia & Procedure: No Short Stay Discharge - Short Stay Discharge Admitting Diagnosis/Reason for Visit: PLEURAL EFFUSION Referrals: Jason Brand MD [Primary Care Provider] - Progress Note/Discharge Note with Instructions: s/p let thoracentesis. There were no immediate complications.
--- NOTE | 2016-09-23 12:36 | PCM.SURG1 ---
Surgeon's Initial Post Op Note - Surgeon's Notes Surgeon: Tayler Conn Armature And Rotor Winder: None Type of Anesthesia: Local Pre-Operative Diagnosis: Left pleural effusion Operative Findings: US showed moderate left effusion Post-Operative Diagnosis: Left pleural effusion Operation Performed: US guided left thoracentesis. Specimen/Specimens Removed: 850 cc of yellow/greenish fluid Estimated Blood Loss: EBL {In ML}: 0 Blood Products Given: N/A Drains Used: No Drains Post-Op Condition: Fair Date of Surgery/Procedure: 09/23/16 Time of Surgery/Procedure: 12:35
[2016-09-23 12:47] VITALS: RESP 18
[2016-09-23 13:30] VITALS: BP 114/71; PULSE 62; TEMP 97.4; O2SAT 96
--- NOTE | 2016-09-23 13:58 | RAD ---
PROCEDURE: CHEST RADIOGRAPH, 1 VIEW HISTORY: Status post left thoracentesis. COMPARISON: None available. FINDINGS: LUNGS: Improved aeration of the lungs. PLEURA: No pneumothorax or pleural fluid seen. CARDIOVASCULAR: Enlarged mediastinum. OSSEOUS STRUCTURES: No significant abnormalities. VISUALIZED UPPER ABDOMEN: Normal. OTHER FINDINGS: None. IMPRESSION: No pneumothorax following left thoracentesis. Improved aeration of the left lung.
--- NOTE | 2016-09-24 14:48 | US ---
PROCEDURE: Date of procedure: 09/23/2016 Procedure: 1. Ultrasound-guided left thoracentesis, CPT 42336 Medications: 6cc 1% Lidocaine HISTORY: Left pleural effusion, shortness of breath TECHNIQUE: Following informed consent ,the Patients' left chest was marked. Procedure time-out was called, and the patient was placed in the sitting position and limited ultrasound showed a large left effusion. The patient's left back was prepped and draped in the usual sterile fashion. After the skin was anesthetized with lidocaine, a drainage catheter was advanced under ultrasound guidance into the pleural space. Ultrasound-guided thoracentesis was performed. A total of 800 cubic centimeters of straw-colored fluid removed without complication. A Xeroform dressing was applied. IMPRESSION: Ultrasound guided left thoracentesis. There were no immediate complications.
== END 2016-09-23 13:20 | disposition still patient (30) ==
LOC: H.OPSURG 10:52
PROVIDERS: ATTEND Family Medicine
DX: J90 Pleural effusion, not elsewhere classified (principal)
CPT/HCPCS: 32555; 71010; C1729

== ENCOUNTER 2016-10-02 12:37 | Inpatient (IN) | payer MEDICARE, OTHER ==
[2016-10-02 12:38] VITALS: BMI 21.9
--- NOTE | 2016-10-02 13:48 | ED PDOC ---
HPI: Head Injury Time Seen by Provider: 10/02/16 13:00 Chief Complaint (Nursing): Trauma Chief Complaint (Provider): Trauma History Per: Patient History/Exam Limitations: no limitations Injury Occurred (Timing): Days Ago: Patient States: Fell Striking Head Severity: Moderate Loss Of Consciousness: No Additional Complaint(s): Patient is a 81 year old male brought to ED by family for increased lethargy, headache and neck pain since falling yesterday. Family reports that patient has a history of subdural hematoma 1 month ago, due to gait difficulties and a drop foot he is supposed to use a walker or wheel chair but walked across a room unassisted yesterday resulting in a fall. States he struck his head posteriorly. Now with head and neck pain. PMD: Dr. Palomino and Dr. Brand Neurosurgeon: Dr. Cody Past Medical History Reviewed: Historical Data, Nursing Documentation, Vital Signs Vital Signs: Last Vital Signs Temp 97.6 F 10/02/16 12:57 Pulse 66 10/02/16 12:57 Resp 20 10/02/16 12:57 BP 120/74 10/02/16 12:57 Pulse Ox 97 10/02/16 12:57 - Medical History PMH: Arthritis, Back Problems (lower back herniated disc ), HTN, End Stage Renal Disease (HD on MWF), Chronic Kidney Disease, TIA Denies: Fractures, HIV - Family History Family History: States: Unknown Family Hx - Living Arrangements Living Arrangements: With Family - Immunization History Hx Tetanus Toxoid Vaccination: Yes (02/2016) - Home Medications Home Medications: Ambulatory Orders Medication Instructions Recorded Sevelamer Carbonate [Renvela] 800 mg PO BID 04/14/16 Carvedilol [Coreg] 3.125 mg PO SUTUTHSA@0900,2100 30 05/30/16 Days DULoxetine [Cymbalta] 30 mg PO QAM 30 Days 05/30/16 Tamsulosin [Flomax] 0.4 mg PO QPM #30 cap 05/30/16 B Complex W-C No.20/Folic Acid 1 mg PO DAILY 09/08/16 [Seneca Caps Softgel] Ascorbic Acid [Vitamin C 500 mg 500 mg PO DAILY tab 09/14/16 Tab] Calamine/Zinc Oxide [Calamine 1 applic TOP BID PRN bottle 09/14/16 Lotion] Ergocalciferol [Drisdol 50,000 1 cap PO Q7D cap 09/14/16 Intl Units Cap] - Allergies Allergies/Adverse Reactions: Allergies Allergy/AdvReac Type Severity Reaction Status Date / Time cortisone Allergy Mild hicups Verified 09/14/16 17:27 Review of Systems ROS Statement: Except As Marked, All Systems Reviewed And Found Negative Constitutional: Negative for: Weakness Eyes: Negative for: Vision Change Cardiovascular: Negative for: Chest Pain Respiratory: Negative for: Shortness of Breath Gastrointestinal: Negative for: Nausea, Vomiting Musculoskeletal: Positive for: Neck Pain Neurological: Positive for: Headache. Negative for: Weakness, Numbness, Dizziness Physical Exam - Reviewed Nursing Documentation Reviewed: Yes Vital Signs Reviewed: Yes - Physical Exam Appears: Positive for: Non-toxic Head Exam: Negative for: ATRAUMATIC (Posterior scalp hematoma (-) skin breakds ) Skin: Positive for: Normal Color, Warm Eye Exam: Positive for: Normal appearance, PERRL Neck: Positive for: Supple. Negative for: Normal ((+) Midline tenderness ) Cardiovascular/Chest: Positive for: Regular Rate, Rhythm, Chest Non Tender. Negative for: Murmur Respiratory: Positive for: Normal Breath Sounds. Negative for: Respiratory Distress Gastrointestinal/Abdominal: Positive for: Normal Exam. Negative for: Tenderness , Distended Back: Positive for: Normal Inspection. Negative for: Vertebral Tenderness, Other (No bony hip tenderness ) Extremity: Positive for: Normal ROM. Negative for: Pedal Edema Neurologic/Psych: Positive for: Alert, Oriented. Negative for: Motor/Sensory Deficits - Laboratory Results Result Diagrams: 10/02/16 14:05 10/02/16 14:05 - ECG O2 Sat by Pulse Oximetry: 97 (RA) Pulse Ox Interpretation: Normal Medical Decision Making Medical Decision Making: Time: 1330 Initial impression: Mechnical fall with injury Initial plan: -- Type and screen -- CT-cervical neck and head -- CMP -- CBC -- PT/PTT Scribe Attestation: Documented by Dominique Contreras acting as a scribe for Mary Canales MD MD Scribe Attestation: All medical record entries made by the Scribe were at my direction and personally dictated by me. I have reviewed the chart and agree that the record accurately reflects my personal performance of the history, physical exam, medical decision making, and the department course for this patient. I have also personally directed, reviewed, and agree with the discharge instructions and disposition. 2:26PM Acute on chronic right convexity subdural hemorrhage. Subdural blood in posterior interhemispheric fissure, inferior to right occipital and temporal lobe and over right tentorium cerebelli. 6 mm midline shift to the left. No evidence of downward herniation. No parenchymal or intraventricular hemorrhage. CT c-spine negative Spoke to Dr. Machuca, ICU who agrees with ICU placement for neuro checks Spoke to Dr. Álvarez who agrees with unit and requesting [facility] resident to evaluate, who did. Disposition - Clinical Impression Clinical Impression: Subdural hematoma - Disposition Disposition Time: 14:56 Condition: CRITICAL
--- NOTE | 2016-10-02 14:24 | CT ---
PROCEDURE: CT HEAD WITHOUT CONTRAST. HISTORY: fall COMPARISON: 09/11/2016 TECHNIQUE: Axial computed tomography images were obtained through the head/brain without intravenous contrast. Radiation dose: Total exam DLP = 1063.98 mGy-cm. This CT exam was performed using one or more of the following dose reduction techniques: Automated exposure control, adjustment of the mA and/or kV according to patient size, and/or use of iterative reconstruction technique. FINDINGS: HEMORRHAGE: There is acute right convexity subdural hemorrhage superimposed upon chronic subdural hemorrhage. There is layering of high density blood beneath low-density subdural collection along the right convexity, the so-called hematocrit effect. There is subdural blood in the posterior interhemispheric fissure, in the tentorium cerebelli and beneath the right temporal and occipital lobes. There is approximately 6 mm midline shift towards the left. There is no evidence of downward herniation. Basilar cisterns are preserved. There is no subarachnoid hemorrhage. There is no intraventricular hemorrhage. BRAIN: No mass effect or edema. No atrophy or chronic microvascular ischemic changes. VENTRICLES: Mass-effect upon right lateral ventricle with effacement of temporal horn. 6 mm midline shift towards the left. CALVARIUM: Unremarkable. PARANASAL SINUSES: Unremarkable as visualized. No significant inflammatory changes. MASTOID AIR CELLS: Trace right mastoid effusion, nonspecific. OTHER FINDINGS: None. IMPRESSION: Acute on chronic right convexity subdural hemorrhage. Subdural blood in posterior interhemispheric fissure, inferior to right occipital and temporal lobe and over right tentorium cerebelli. 6 mm midline shift to the left. No evidence of downward herniation. No parenchymal or intraventricular hemorrhage.
[2016-10-02 14:25] LABS: BASO % 0.9 % (0.0-2.0); EOS # 0.4 K/uL (0.0-0.7); EOS % 7.7 % (0.0-4.0); HEMATOCRIT 34.2 % (35.0-51.0); LYMPH # 0.6 K/uL (1.0-4.3); LYMPH % 11.8 % (20.0-40.0); MEAN CORPUSCULAR HEMOGLOBIN 31.7 pg (27.0-31.0); MEAN PLATELET VOLUME 9.3 fl (7.2-11.7); MONO # 0.6 K/uL (0.0-0.8); MONO % 12.7 % (0.0-10.0); NEUT # 3.1 K/uL (1.8-7.0); NEUT % 66.9 % (50.0-75.0); NRBC % 0.1 % (0.0-0.0); RED CELL DISTRIBUTION WIDTH 15.6 % (11.5-14.5); WHITE BLOOD COUNT 4.7 K/uL (4.8-10.8)
[2016-10-02 14:28] LABS: ALB/GLOB RATIO 0.8 (1.0-2.1); BILIRUBIN,TOTAL 1.6 mg/dl (0.2-1.3); CALCIUM 9.3 mg/dL (8.4-10.2); POTASSIUM 4.7 MMOL/L (3.6-5.0); TOTAL PROTEIN 8.5 G/DL (6.3-8.2)
--- NOTE | 2016-10-02 14:29 | CT ---
PROCEDURE: CT Cervical Spine without contrast HISTORY: Fall. Neck pain. COMPARISON: None available. TECHNIQUE: Axial computed tomography images were obtained of the cervical spine without the use of intravenous contrast. Coronal and sagittal reformatted images were created and reviewed. Radiation dose: Total exam DLP = 579.37 mGy-cm. This CT exam was performed using one or more of the following dose reduction techniques: Automated exposure control, adjustment of the mA and/or kV according to patient size, and/or use of iterative reconstruction technique. FINDINGS: VERTEBRAE: Vertebral bodies maintained in height. Transverse processes and posterior elements are intact. The atlantoaxial articulation and odontoid process are intact. There is minimal (grade 1) retrolisthesis at C6-7 likely degenerative in origin. DISCS/SPINAL CANAL/NEURAL FORAMINA: There is multilevel degenerative disc disease including C4-5, C5-6 and C6-7. Mild central spinal stenosis is noted at C6-7. Moderate to severe right C6-7 neural foraminal stenosis. PARASPINAL SOFT TISSUES: Unremarkable. OTHER FINDINGS: None. IMPRESSION: No fracture. Grade 1 retrolisthesis at C6-7. Multilevel degenerative disc disease. Mild central spinal stenosis C6-7.
[2016-10-02 15:29] VITALS: BP 104/80; TEMP 97.5
--- NOTE | 2016-10-02 15:30 | CP.PCM.HP ---
Addendum entered and electronically signed by Kiley Josue MD 10/02/16 19: 03: As per patients family, patient was not compliant with use of walker. He did not use it very often. Deny knowledge of LOC s/p fall. Original Note: <Kiley Josue - Last Filed: 10/02/16 18:42> History of Present Illness - History of Present Illness History of Present Illness: Patient is an 81 year old male with history of multiple falls, severe Aortic Stenosis, with LVEF 35%; ESRD on HD via LUE AVF, HTN, BPH with TURP, R Hip Frax ; Cirrhosis and Hypersplenism presents s/p mechanical fall. Brought in by family for lethargy this morning. Patient sustained fall around 9:30 last night , was ambulating without walker and fell, suffered trauma to his head. The fall was not witnessed by family. Patient was alert s/p fall as per family, and went to sleep last night. This AM patient had headache and was given tylenol without resolution of symptoms. Cough x 1 week. Patient s/p thoracocentesis on 09/23/16. Has productive cough. PMD: Dr. Sunday Retana-nephrology Medications: Renvela, cymbalta, cyproheptadine, carvedilol, flomax, sensipar, omeprazole, flonase. Allergies: cortisone Surgical hx: hip surgery, multiple AV fistulas Family bedside: sonHoracio, homemaker, grandson ED course: VS:T: 97.5, HR:77, BP: 104/80, RR 19, Spo2: 98% CBC: pancytopenia. 4.7> 10.9 /34.2 < 77 CMP: elevated BUN/Cr: 33/3.7 CXR: new RLL infintrate likely pneumonia CT Head:Acute on chronic right convexity subdural hemorrhage. Subdural blood in posterior interhemispheric fissure, inferior to right occipital and temporal lobe and over right tentorium cerebelli. 6 mm midline shift to the left. No evidence of downward herniation. No parenchymal or intraventricular hemorrhage. neurosx consult: Dr. Veras Pts Contact, Son: Horacio: [phone] Present on Admission - Present on Admission Any Indicators Present on Admission: No Past Patient History - Past Medical History & Family History Past Medical History?: Yes - Past Social History Smoking Status: Never Smoked - CARDIAC Hx Hypertension: Yes - PULMONARY Hx Respiratory Disorders: No - NEUROLOGICAL Hx Transient Ischemic Attacks (TIA): Yes - HEENT Hx Cataracts: Yes - RENAL Hx Chronic Kidney Disease: Yes - ENDOCRINE/METABOLIC Hx Endocrine Disorders: No - HEMATOLOGICAL/ONCOLOGICAL Hx Human Immunodeficiency Virus (HIV): No - INTEGUMENTARY Hx Dermatological Problems: No - MUSCULOSKELETAL/RHEUMATOLOGICAL Hx Arthritis: Yes Hx Fractures: No - GASTROINTESTINAL Hx Gastroesophageal Reflux: Yes Other/Comment: Bilateral inguinal hernias - GENITOURINARY/GYNECOLOGICAL Hx Prostate Problems: Yes Other/Comment: Turp in past - PSYCHIATRIC Hx Psychophysiologic Disorder: No Hx Emotional Abuse: No Hx Physical Abuse: No Hx Substance Use: No - SURGICAL HISTORY Hx Surgeries: Yes (Left arm AV shunt) Other/Comment: TUR-P many years ago. Cataract Sx - ANESTHESIA Hx Anesthesia: Yes Hx Anesthesia Reactions: No (None Known) Meds Allergies/Adverse Reactions: Allergies Allergy/AdvReac Type Severity Reaction Status Date / Time cortisone Allergy Mild hicups Verified 09/14/16 17:27 Physical Exam - Constitutional Appears: In Acute Distress (coughing, however alert and oriented to person and place), Chronically Ill - Head Exam Additional comments: contusion posterior head - Eye Exam Eye Exam: Normal appearance - Respiratory Exam Respiratory Exam: Rhonchi (bilaterally), NORMAL BREATHING PATTERN Additional comments: productive cough +green sputum - Cardiovascular Exam Cardiovascular Exam: REGULAR RHYTHM - GI/Abdominal Exam GI & Abdominal Exam: Distended, Normal Bowel Sounds. 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 All labs and imaging reviewed. Patient is currently stable, transferred for urgent evacuation. 1.Acute on chronic subdural hematoma with 6mm midline shift - -STAT neuro consult Dr. Dodd for possible right craniectomy. Appreciate recommendations: will transfer patient for urgent evacuation. -Start Keppra 500 mg IV daily and coordinate with dialysis for supplemental 250 mg dose after dialysis. Repeat CT head in 6 hours. If the patient becomes more somnolent and develops progressive left side weakness, obtain STAT CT head and bolus with 250 mL of 3%. 2.ESRD on hemodialysis -schedule is MWF. All labs reviewed -CMP unremarkable except: Cl: 96, BUN: 33, Cr: 3.7 3.Pancytopenia likely secondary to ESRD. WBC: 4.7, H/h: 10.9/34.2, Plt: 77. d/w. Dr Esthela Hunter 4.DVT prophylaxis: contraindicated due to acute intracranial hemorrhage 5. Pneumonia - new right lower lobe infiltrate, +rhonchi in exam. -no leukocytosis or fever. -spo2 98% on room air, no respiratory distress. - Status: Acute <Jason Brand - Last Filed: 10/03/16 09:15> Results - Vital Signs Recent Vital Signs: Last Vital Signs Temp 97.5 F L 10/02/16 16:12 Pulse 74 10/02/16 18:16 Resp 17 10/02/16 18:16 BP 104/80 10/02/16 16:12 Pulse Ox 97 10/02/16 18:16 - Labs Result Diagrams: 10/02/16 14:05 10/02/16 14:05 Attending/Attestation - Attestation I have personally seen and examined this patient.: Yes I have fully participated in the care of the patient.: Yes I have reviewed all pertinent clinical information: Yes
--- NOTE | 2016-10-02 15:47 | CP.CCUPN ---
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 Otherwise, CT Brain showed an acute on chronic SDH over the R occipital and temporal lobe convexity areas. There is a midline shift to the left of 6mm; no herniation seen. Currently, has no focal deficits, now he is alert and awake, oriented x 3 during exam, VS show now episodes of accelerated HTn nor arrhythmias. ROS: as above, no other pertinent s/sx on + system review. Allergies: NKDA Home Meds: Vit C, Vit B complex, Coreg, Cymbalta, Renvela, Flomax. Other PSFMH: as above, no tobacco, ETOH or substance abuse; all nursing and historical notes reviewed, no new pertinent data relevant to current problems. No other distress noted: EXAM- HEENT: +Posterior occipital hematoma, no icterus, pupils equal and reactive, no nystagmus, gaze preference, gag intact, mouth / pharynx clear. NECK: no visible JVD, supple, carotids equal upstroke bilat/no bruits CHEST: decreased BS at the bases, no wheezes, otherwise clear bilat HEART: regular, distant, S1S2, no murmur audible, no rubs. ABD: soft, no increased distention, no focal tenderness, no HSM. BS hypoactive , EXT: no edema, no peripheral/ digital cyanosis, no calf tenderness or palpable cords, distal pulses intact and symmetrical , LUE AVF with good thrill and bruit. NEURO: no gross focal motor deficits, + ton ein all extremities. SKIN: no rashes LABS: WBC= 4.7 HGB= 10.9 PLTs= 77K Na= 137 K= 4.7 HCO3= 28 BUN/Cr= 33/3.7 BS= 88 CXR: RLL interstitial changes ( my interp), similar to last CXR on 09/23/16. EKG: pending MAJOR PROBLEMS NOW: 1. Acute on chronic SDH 2. s/p Fall at home 3. Chronic Thrombocytopenia 4. Chronic Disease Anemia 5. ESRD on HD PLAN: 1. NSG and Neurology consultations. Admit to ICU for Neuro observation / neurochecks hourly, seizure precautions. Keep HOB elevated. 2. Check coags: mild coagulopathy noted last hospital admission. 3. Consider dDAVP for platelet dysfunction from chronic renal disease. Serial CBC, watch Platelets, if decreases further; consider Platelet transfusion. 4. Repeat Brain imaging in 24H. 5. Regular HD schedule ( on MWF). 6. 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 7. No Advance Directives noted, Full Code status for now.
--- NOTE | 2016-10-02 16:03 | RAD ---
HISTORY: Trauma COMPARISON: 09/23/2016. FINDINGS: LUNGS: Infiltrate/ atelectasis at the right lung base. PLEURA: No significant pleural effusion identified, no pneumothorax apparent. CARDIOVASCULAR: Cardiomegaly. No evidence of acute, significant cardiovascular disease. OSSEOUS STRUCTURES: No significant abnormalities. VISUALIZED UPPER ABDOMEN: Normal. OTHER FINDINGS: None. IMPRESSION: New right lower lobe infiltrate likely pneumonia.
[2016-10-02] MEDS ORDERED: Desmopressin 4 mcg/ml Inj (10 ml) IM STA (16:11)
[2016-10-02] MEDS ORDERED: Desmopressin 4 mcg/ml Inj (10 ml) IV STA (17:24)
--- NOTE | 2016-10-02 17:29 | CP.PCM.CON ---
History of Present Illness - History of Present Illness History of Present Illness: Mr. Tabor is an 81-year-old man with a past medical history of ESRD on HD, who had a subdural hemorrhage a month ago as a result of a fall due to right foot drop, which he acquired after right hip surgery. Last night he had a fall and hit his head after getting up from a seated position. Today, he complained of progressive headache, neck pain and has become less interactive with a change of mental status from baseline. The patient's son also states that his father was having left facial and body twitching last night. When I saw the patient, he was alert and awake, but was complaining of headache and I did notice left facial twitching as well. Review of Systems - Review of Systems All systems: reviewed and no additional remarkable complaints except Past Patient History - Past Medical History & Family History Past Medical History?: Yes - Past Social History Smoking Status: Never Smoked - CARDIAC Hx Hypertension: Yes - PULMONARY Hx Respiratory Disorders: No - NEUROLOGICAL Hx Transient Ischemic Attacks (TIA): Yes - HEENT Hx Cataracts: Yes - RENAL Hx Chronic Kidney Disease: Yes - ENDOCRINE/METABOLIC Hx Endocrine Disorders: No - HEMATOLOGICAL/ONCOLOGICAL Hx Human Immunodeficiency Virus (HIV): No - INTEGUMENTARY Hx Dermatological Problems: No - MUSCULOSKELETAL/RHEUMATOLOGICAL Hx Arthritis: Yes Hx Fractures: No - GASTROINTESTINAL Hx Gastroesophageal Reflux: Yes Other/Comment: Bilateral inguinal hernias - GENITOURINARY/GYNECOLOGICAL Hx Prostate Problems: Yes Other/Comment: Turp in past - PSYCHIATRIC Hx Psychophysiologic Disorder: No - SURGICAL HISTORY Hx Surgeries: Yes (Left arm AV shunt) Other/Comment: TUR-P many years ago. Cataract Sx - ANESTHESIA Hx Anesthesia: Yes Hx Anesthesia Reactions: No (None Known) Meds Allergies/Adverse Reactions: Allergies Allergy/AdvReac Type Severity Reaction Status Date / Time cortisone Allergy Mild hicups Verified 09/14/16 17:27 - Medications Medications: Current Medications Famotidine (Pepcid) 40 mg IVP DAILY RAÚL Physical Exam - Constitutional Appears: Chronically Ill - Head Exam Head Exam: ATRAUMATIC, NORMAL INSPECTION, NORMOCEPHALIC - Eye Exam Eye Exam: EOMI, Normal appearance, PERRL - ENT Exam ENT Exam: Mucous Membranes Moist, Normal Exam - Neck Exam Neck exam: Positive for: Normal Inspection - Respiratory Exam Respiratory Exam: Clear to Auscultation Bilateral, NORMAL BREATHING PATTERN - Cardiovascular Exam Cardiovascular Exam: REGULAR RHYTHM, +S1, +S2 - GI/Abdominal Exam GI & Abdominal Exam: Normal Bowel Sounds, Soft. absent: Tenderness - Rectal Exam Rectal Exam: Deferred - Extremities Exam Extremities exam: Positive for: normal inspection - Back Exam Back exam: NORMAL INSPECTION - Neurological Exam Neurological exam: Alert, CN II-XII Intact Additional comments: Alert and awake; oriented to place and person, but not time. Strength is symmetrical and normal throughout, except with right foot plantar flexion, which is weak. Sensation is intact. Reflexes are brisk on the left side with upgoing plantar response. - Psychiatric Exam Psychiatric exam: Flat Affect - Skin Skin Exam: Dry, Intact, Normal Color, Warm Results - Vital Signs Recent Vital Signs: Last Vital Signs Temp 97.5 F L 10/02/16 16:12 Pulse 77 10/02/16 16:12 Resp 19 10/02/16 16:12 BP 104/80 10/02/16 16:12 Pulse Ox 98 10/02/16 15:10 - Labs Result Diagrams: 10/02/16 14:05 10/02/16 14:05 - Imaging and Cardiology CT scan - head Status: Image reviewed by me, Report reviewed by me (Right acute on chronic SDH with 6 mm midline shift and cerebral edema with loss of zurita/white junction.) Assessment & Plan (1) Subdural hematoma Assessment and Plan: Consult neurosurgery for possible right craniectomy. Start Keppra 500 mg IV daily and coordinate with dialysis for supplemental 250 mg dose after dialysis. Repeat CT head in 6 hours. If the patient becomes more somnolent and develops progressive left side weakness, obtain STAT CT head and bolus with 250 mL of 3%. Consider transferring the patient for neurocritical care. Status: Acute Priority: High
[2016-10-02] MEDS ORDERED: levETIRAcetam 500 MG in Sodium Chloride 0.9% 100 ML IVPB SCH (17:31)
[2016-10-02 18:48] VITALS: PULSE 74; RESP 17; O2SAT 97
== END 2016-10-02 18:30 | disposition short-term general hospital (02) | DRG 85 ==
LOC: H.ER 12:37 → H.ERHOLD 14:32 → H.ICU/CCU 16:47
PROVIDERS: ADMIT Family Medicine; ATTEND Family Medicine
DX: S06.5X0A Traumatic subdural hemorrhage without loss of consciousness, initial encounter (principal); J18.9 Pneumonia, unspecified organism; N18.6 End stage renal disease; D61.818 Other pancytopenia; I12.0 Hypertensive chronic kidney disease with stage 5 chronic kidney disease or end stage renal disease; D69.59 Other secondary thrombocytopenia; D63.8 Anemia in other chronic diseases classified elsewhere; I35.0 Nonrheumatic aortic (valve) stenosis; K74.60 Unspecified cirrhosis of liver; K21.9 Gastro-esophageal reflux disease without esophagitis; M19.90 Unspecified osteoarthritis, unspecified site; W18.30XA Fall on same level, unspecified, initial encounter; Z99.2 Dependence on renal dialysis; Z86.73 Personal history of transient ischemic attack (TIA), and cerebral infarction without residual deficits; Z91.81 History of falling; Y92.009 Unspecified place in unspecified non-institutional (private) residence as the place of occurrence of the external cause